=== PATIENT | female | born 1940 | race Caucasian/White ===

== ENCOUNTER → 2016-07-02 | Outpatient (CLI) | payer MEDICARE ==
[2016-07-02 09:54] LABS: BASO % 0.7 % (0.0-1.0); EOS # 0.3 K/mm3 (0.0-0.50); EOS % 3.6 % (0.0-3.0); LARGE UNSTAINED CELL # 0.1 K/mm3 (0.0-0.4); LARGE UNSTAINED CELL % 1.3 % (0.0-4.0); LYMPH # 1.5 K/mm3 (1.5-4.5); LYMPH % 18.6 % (24.0-44.0); MEAN CORPUSCULAR HEMOGLOBIN 30.4 pg (27.0-33.0); MEAN CORPUSCULAR HGB CONC 32.2 g/dl (32.0-36.5); MEAN CORPUSCULAR VOLUME 94.4 fl (80.0-96.0); MONO # 0.4 K/mm3 (0.0-0.8); MONO % 5.5 % (0.0-5.0); NEUTROPHILS # 5.3 K/mm3 (1.8-7.7); NEUTROPHILS % 70.3 % (36.0-66.0); PLATELET COUNT, AUTOMATED 366 k/mm3 (150-450); RED CELL DISTRIBUTION WIDTH 12.7 % (11.5-14.5); WHITE BLOOD COUNT 7.6 K/mm3 (4.0-10.0)
[2016-07-02 10:43] LABS: ALBUMIN 3.4 GM/DL (3.2-5.2); ALBUMIN/GLOBULIN RATIO 0.87 (1.00-1.93); ALKALINE PHOSPHATASE 117 U/L (45-117); ALT/SGPT 17 U/L (12-78); ANION GAP 7 MEQ/L (8-16); AST/SGOT 16 U/L (15-37); BILIRUBIN,TOTAL 0.5 MG/DL (0.2-1.0); BLOOD UREA NITROGEN 25 MG/DL (7-18); CALCIUM LEVEL 9.3 MG/DL (8.8-10.2); CARBON DIOXIDE LEVEL 27 MEQ/L (21-32); CHLORIDE LEVEL 107 MEQ/L (98-107); GLOMERULAR FILTRATION RATE > 60.0 (>39); GLUCOSE, FASTING 88 MG/DL (83-110); POTASSIUM SERUM 4.9 MEQ/L (3.5-5.1); SODIUM LEVEL 141 MEQ/L (136-145); TOTAL PROTEIN 7.3 GM/DL (6.4-8.2)
== END ==
LOC: M LAB 08:53
PROVIDERS: ATTEND Family Medicine
DX: E11.9 Type 2 diabetes mellitus without complications (principal)

== ENCOUNTER → 2016-08-09 | Outpatient (CLI) | payer MEDICARE ==
[2016-08-09 11:15] LABS: ANION GAP 5 MEQ/L (8-16); BLOOD UREA NITROGEN 30 MG/DL (7-18); CARBON DIOXIDE LEVEL 27 MEQ/L (21-32); CHLORIDE LEVEL 110 MEQ/L (98-107); CREATININE FOR GFR 0.89 MG/DL (0.55-1.02); GLOMERULAR FILTRATION RATE > 60.0 (>39); GLUCOSE, FASTING 112 MG/DL (83-110); POTASSIUM SERUM 4.6 MEQ/L (3.5-5.1); SODIUM LEVEL 142 MEQ/L (136-145)
--- NOTE | 2016-08-10 09:39 | ECGEPIP ---
Stationary ECG Study [facility] Test Date: 2016-08-09 Pat Name: MINAL STOCKTON Department: Room: - Gender: F [employer] Machine Operator: [facility] : 1940 Requested By: ALEAH Washburn Order Number: [id number] Reading MD: Lashonda Turner Measurements Intervals [place] Rate: 83 P: 66 MT: 173 QRS: 15 QRSD: 86 T: 48 QT: 360 QTc: 424 Interpretive Statements SINUS RHYTHM NO PRIOR Electronically Signed On 08-10-2016 9:38:57 EDT by Lashonda Turner
== END ==
LOC: M LAB 10:22
PROVIDERS: ATTEND Ophthalmology
DX: I10 Essential (primary) hypertension (principal)

== ENCOUNTER 2016-12-10 09:43 | Inpatient (IN) | payer MEDICARE ==
[~2016-12-10] VITALS: Ht 160 cm; Wt 67.4 kg
[2016-12-10] MEDS: CALCIUM/VITAMIN D 500 MG TAB PO SCH (09:00)
[2016-12-10] MEDS: OMEGA-3 1050MG CAPSULE PO SCH (09:00)
[2016-12-10] MEDS ORDERED: BESI0.6S (10:04)
[2016-12-10] MEDS ORDERED: METF10004 PO (10:04)
[2016-12-10] MEDS ORDERED: ATOR1TAB21 PO (10:04)
[2016-12-10] MEDS ORDERED: LISI-538 PO (10:04)
[2016-12-10] MEDS ORDERED: BIMA01SOL OU (10:04)
[2016-12-10] MEDS ORDERED: GLIM4TAB PO (10:04)
--- NOTE | 2016-12-10 10:49 | REP ---
Portable chest , single AP view, patient sitting: There are no comparisons. The lung brandt are clear. The cardiac size is normal. The pearl, mediastinum, and bony thorax are unremarkable. Impression: Negative portable chest. Signed by Martín Loera MD 12/10/2016 10:40 A
--- NOTE | 2016-12-10 11:01 | REP ---
REASON: Stroke like symptoms. COMPARISON: None. TECHNIQUE: 4.5 mm contiguous transaxial sections were obtained from the skull base to the cerebral convexities with thin cuts through the posterior fossa without the administration of intravenous contrast. FINDINGS: The ventricles and sulci are consistent with the patient's age. There are no extra-axial fluid collections. There is no mass effect. The deep cerebral white matter is consistent with the patient's age. The orbital and petrous structures , cerebellopontine angles, and posterior fossa are unremarkable. The sella turcica, cavernous, and paracavernous structures are essentially unremarkable. The visualized portions of the paranasal sinuses and mastoid air cells are clear. Images of the skull base show no gross abnormality. IMPRESSION: Essentially unremarkable CT examination of the brain. Signed by Genaro Josue DO 12/10/2016 11:10 A
[2016-12-10] MEDS ORDERED: DEXTROSE 50% 50 ML SYRINGE IV STA (11:33)
[2016-12-10 11:34] LABS: BASO % 0.2 % (0.0-1.0); EOS # 0.1 K/mm3 (0.0-0.50); EOS % 0.9 % (0.0-3.0); LARGE UNSTAINED CELL # 0.1 K/mm3 (0.0-0.4); LARGE UNSTAINED CELL % 1.4 % (0.0-4.0); LYMPH # 0.7 K/mm3 (1.5-4.5); MEAN CORPUSCULAR HEMOGLOBIN 31.3 pg (27.0-33.0); MEAN CORPUSCULAR HGB CONC 32.4 g/dl (32.0-36.5); MEAN CORPUSCULAR VOLUME 96.7 fl (80.0-96.0); MONO # 0.4 K/mm3 (0.0-0.8); MONO % 4.7 % (0.0-5.0); NEUTROPHILS # 6.5 K/mm3 (1.8-7.7); NEUTROPHILS % 83.9 % (36.0-66.0); PLATELET COUNT, AUTOMATED 342 k/mm3 (150-450); RED CELL DISTRIBUTION WIDTH 12.7 % (11.5-14.5); WHITE BLOOD COUNT 7.8 K/mm3 (4.0-10.0)
[2016-12-10 11:39] LABS: INR 0.94
[2016-12-10] MEDS ORDERED: NS 1,000 ML IV ONE (11:45)
[2016-12-10] MEDS ORDERED: CALCTAB75 PO (12:09)
[2016-12-10] MEDS ORDERED: VITA-121 PO (12:09)
[2016-12-10] MEDS ORDERED: FISH1000 PO (12:09)
[2016-12-10] MEDS ORDERED: ASPI1TAB PO (12:09)
[2016-12-10 12:46] LABS: ALBUMIN 3.2 GM/DL (3.2-5.2); ALBUMIN/GLOBULIN RATIO 0.7 (1.00-1.93); BILIRUBIN,DIRECT 0.7 MG/DL (0.0-0.2); BILIRUBIN,TOTAL 1.4 MG/DL (0.2-1.0); TOTAL PROTEIN 7.8 GM/DL (6.4-8.2)
[2016-12-10 12:46] LABS: ANION GAP 10 MEQ/L (8-16); BLOOD UREA NITROGEN 37 MG/DL (7-18); CALCIUM LEVEL 9.3 MG/DL (8.8-10.2); CARBON DIOXIDE LEVEL 22 MEQ/L (21-32); CHLORIDE LEVEL 102 MEQ/L (98-107); CREATININE FOR GFR 0.97 MG/DL (0.55-1.02); GLOMERULAR FILTRATION RATE 59.6 (>39); GLUCOSE, FASTING 60 MG/DL (83-110); POTASSIUM SERUM 3.9 MEQ/L (3.5-5.1); SODIUM LEVEL 134 MEQ/L (136-145)
--- NOTE | 2016-12-10 14:28 | REP ---
Abdominal right upper quadrant ultrasound: There are no comparison studies. There is a negative Mix's sign to transducer pressure. There are multiple gallbladder calculi. The gallbladder wall is mildly thickened measuring up to 4 mm. There is no intrahepatic biliary duct dilatation. The common biliary duct is mildly dilated measuring 7.6 mm. The hepatic parenchyma is homogeneous and otherwise unremarkable. The pancreas is obscured by bowel gas. There is no right renal hydronephrosis, calculus or mass. There is a 1.8 cm upper pole cyst and a 1.3 cm upper pole cyst. The right kidney is normal size measuring 9.7 cm craniocaudad length. Impression: Cholelithiasis. Mild gallbladder wall thickening and minimal common biliary duct dilatation. No positive Mxi's sign to transducer pressure. No pericholecystic fluid. There is no right hydronephrosis. There are two right renal upper pole cysts. Signed by Martín Loera MD 12/10/2016 02:19 P
[2016-12-10] MEDS: NS 1,000 ML IV SCH ×2 (15:45→23:41)
[2016-12-10] MEDS ORDERED: DEXTROSE 50% 50 ML SYRINGE IV PRN (15:45)
[2016-12-10] MEDS ORDERED: GLUCOSE 4 GM CHEW TABLET PO PRN (15:45)
[2016-12-10] MEDS ORDERED: GLUCAGON FOR INJ 1 MG VIAL (J1610) SC PRN (15:45)
[2016-12-10] MEDS ORDERED: ONDANSETRON 4MG/2ML VIAL (J2405) IV PRN (16:00)
[2016-12-10] MEDS ORDERED: ISOVUE-370 76% 100ML VIAL (Q9967) As Ordered ONE (17:34)
--- NOTE | 2016-12-10 17:55 | HPE ---
DATE OF ADMISSION: 12/10/2016 Time patient was seen was at 1500 hours. PRIMARY CARE PROVIDER: Eliecer Montoya MD CHIEF COMPLAINT: Fall onto floor. HISTORY OF PRESENT ILLNESS: 76-year-old female with past medical history of non-insulin dependent type 2 diabetes, hyperlipidemia, hypertension, calcium deficiency who presented after being found next to her bed this morning around 7:30 a.m. by patient's . According to patient, she woke up at 6:45 a.m. and felt a little bit dizzy and then she was trying to get off the bed with one leg out of the bed, then she does not remember what happened. However, she does remember that she was on the floor and talking to her and daughter. Patient denies any incontinence, denies any loss of consciousness or hitting her head. However, according to daughter she does have a bruise on the forehead and did have some blood on the head when emergency medical services (EMS) arrived. Also, patient's fingerstick was found to be in the 30s when EMS arrived at the scene. Patient was more coherent in the ambulance and she was able to speak in full sentences and answer all the questions after IV drip was started per patient's daughter. In addition, she did lose control of her bladder while in the ambulance. According to patient, she was trying to hold her bladder and was not able to make it to the bathroom and she did feel like she was going to urinate. In addition, patient stated that on Friday evening she had an episode of nausea after eating a sub and on Friday she vomited and she did not feel like eating for the entire Friday and Friday, she only had a little bit of food on Friday evening. She also had an episode of hypoglycemia in the past with sugar in the 30s. Normally she does not pass out and only requires orange juice to bring her sugar back to normal. Patient's A1c was found to be elevated, therefore metformin was started, in addition to glimepiride, and ever since she has been having more events with low blood sugar. She also admits to roughly a 25 pound weight loss over the past few months. She attributes that to reduced appetite and also she was trying to lose weight. Otherwise, she denies any chest pain, trouble breathing, any abdominal pains, any diarrhea, any constipation, any blood in the stool, any dysuria. Denies any blood in the urine. She does admit to feeling cold all the time however. ALLERGIES: No known drug allergies. PAST MEDICAL HISTORY: Includin. Non-insulin dependent type 2 diabetes. 2. Hypertension. 3. Hyperlipidemia. 4. 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 5. Osteomyelitis status post resection of a left toe. PAST SURGICAL HISTORY: Resection of left toe due to diabetes. SOCIAL HISTORY: Patient lives with her and daughter. Denies any smoking, drinking, or recreational drug use. 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 FAMILY HISTORY: Denies. REVIEW OF SYSTEMS: GENERAL: Admits to 25 pounds of intentional weight loss. Denies any recent travel or sick contact. Denies fever or chills. Denies any sweating at night. HEENT: Denies any changes with vision, smell, hearing or taste. CARDIOVASCULAR: Denies any chest pain, trouble breathing. LUNGS: Denies any trouble breathing, any cough. ABDOMEN: Denies any abdominal pains. Patient did have nausea and vomiting on Friday and still felt nauseous until Friday. Currently does not feel nauseous however. Denies any diarrhea or constipation. Denies any blood in the stool. GENITOURINARY (): Denies any dysuria, however she did have incontinence while in the emergency room, per patient she was unable to hold her bladder in the ambulance. MUSCULOSKELETAL: Denies any muscle aches, any pain in the joints. HEMATOLOGY/ONCOLOGY: Denies any bleeding currently. However, does admit to easy bruising. ENDOCRINE: Denies any heat intolerance, however patient does feel cold all the time and has been worse over the past few days. NEUROLOGICAL: Denies any weakness on any side of her body. Denies any change of sensations. Patient does admit to hitting her head, however she does not remember. PHYSICAL EXAMINATION: VITAL SIGNS: Temperature 97.9, pulse 70, respirations 14, blood pressure 137/59 , oxygen saturation at 96% on room air. GENERAL: Patient is a pleasant elderly female who was alert, awake, oriented times three. Does not appear to be in distress. Laying comfortably in bed with head elevated at 45 degrees angle. HEENT: Normocephalic, atraumatic. Extraocular motors intact. Pupils are equal , round, and reactive to light. Mucous membranes moist. Neck supple. No neck lymphadenopathy. CARDIOVASCULAR: Regular rate and rhythm. Normal S1, S2, however it was difficult to auscultate due to increase of anteroposterior (AP) diameter. LUNGS: Clear to auscultation bilaterally. No wheezing, rales, or rhonchi. ABDOMEN: Positive bowel sounds. Soft, nontender, nondistended. No peritoneal signs. No ecchymosis. EXTREMITIES: Trace pitting edema in bilateral lower extremities. SKIN: Warm and dry. NEUROLOGICAL: Cranial nerves II-XII intact. Patient's eyebrow raise was equal bilaterally. Smile was symmetrical. Tongue protruding was midline. Sutqxi-nf-vjzl shows good coordination. Dazj-gk-kdcl was intact as well. Sensations were intact. LABORATORY DATA: WBC 7.8, hemoglobin 10.8, hematocrit 33.3, with platelet count of 342 and MCV of 96.7. Sodium 134, potassium 3.9, chloride 102, bicarbonate 22, BUN 37, creatinine 0.97 , GFR 59.6, fasting glucose 60, A1c was 7, calcium 9.3, total bilirubin 1.4, direct bilirubin 0.7, AST 550, ALT 890, alkaline phosphatase 382, ammonia level was 32, creatine kinase was 77, CK-MB 2.5, troponin less than 0.02, total protein 7.8, albumin 3.2, amylase 38, lipase 180. INR was 0.94. Patient's hepatitis panel is pending, currently, glucose was 174, 168. Patient' s blood culture times two is pending. Patient had a head CT without contrast which shows essentially unremarkable CT of the brain. Patient had a chest x-ray which shows negative portable chest. Gallbladder ultrasound shows cholelithiasis, mild gallbladder wall thickening, and minimal common bile duct dilatation. No positive Mix's sign to transducer pressure. No pericholecystic fluid. ASSESSMENT AND PLAN: 76-year-old female with past medical history of non- insulin dependent type 2 diabetes, severe anemia, and hypertension, presented with: 1. Fall from the bed. Possibly from hypoglycemic event versus cardiac etiology versus transient ischemic attack (TIA) versus infectious etiology. Patient's CT of the head did not show any acute findings. There is no significant white count which is only 7.8. Patient has no fever. Patient does have low blood sugar initially, it was only in the 30s, which is likely the cause of patient's fall and altered mental status. Will repeat orthostatic vital signs for now. Patient did not have elevated cardiac markers and does not have any dysuria or any cough to indicate infectious etiology. At this point, will place the patient on fingersticks every 6 hours and patient is currently nothing by mouth. Will hold patient's diabetic medications, metformin and also glimepiride, and continue to monitor patient. 2. Hitting patient's forehead on the ground. Does not show any lacerations or any bruising currently. CT of the head has been negative. Will continue to follow patient, place patient on seizure precautions, and also aspiration precaution. 3. Transaminitis with AST of 850, ALT of 890, and alkaline phosphatase of 382. Patient also has elevated bilirubin. At this point, it is suspicious that patient may have choledocholithiasis, therefore Dr. Griffin from gastroenterology has been consulted. Will follow his recommendation. MRCP has been ordered which is pending, will followup. At this point, patient's INR appears to be normal at 0.94. Hepatitis panel has been pending for possible acute hepatitis A infection. Patient does not have elevated ammonia level. 4. Chronic anemia, borderline macrocytic. Appears to be at baseline currently. 5. History of hypertension. Will continue home medication of lisinopril. Patient's blood pressure appears to be stable. 6. Hyperlipidemia. Due to transaminitis and possible hepatitis will hold any hepatotoxic agent at the moment. 7. Deep venous thrombosis (DVT) prophylaxis with heparin 5000 units subcutaneously every 12 hours. DISPOSITION: Will continue to monitor any additional hypoglycemic event and rule out patient's reason for the altered mental status and investigate etiology of patient's transaminitis and will followup with MRCP for possible choledocholithiasis and continue to follow Dr. Griffin's recommendation. Patient has been discussed with attending doctor, Dr. Blake. My preceptor for this patient encounter was Dr. Micky Blake. The preceptor was physically present in the building during the encounter and was fully available. As needed, all aspects of the patient interview, examination, medical decision making process, and medical care plan development were reviewed and approved by the preceptor. The preceptor is aware and concurs with the plan as stated in the body of this note and will attest to such by his/her cosignature. MARIA DEL CARMEN
--- NOTE | 2016-12-10 18:30 | REPUSA ---
CT of the abdomen and pelvis with contrast Clinical statement: nausea, vomiting. Technique: Multiple axial CT images were obtained from the base of the lungs through the floor of the pelvis utilizing 5 mm axial slices after administration of oral and nonionic intravenous contrast. C oronal and sagittal reconstructions were also obtained. No comparison is available. Findings: Chest: The visualized lung bases are clear. Abdomen: The liver, spleen, and adrenal glands are unremarkable. Extensive cystic changes are seen th roughout the pancreas, likely representing pseudocysts from previous pancreatitis. There is no eviden ce of acute pancreatitis at this time. No discrete pancreatic necrosis is seen. There is mild intrahe patic and extrahepatic biliary ductal dilatation. The common bile duct measures 4 mm. Numerous gallst ones filled gallbladder. No discrete pericholecystic inflammation is noted. There are small bilateral renal cysts. The aorta is within normal limits. There is no evidence of abdominal lymphadenopathy or ascites. Pelvis: The bowel is unremarkable, with no obstructive or inflammatory changes. The urinary bladder i s within normal limits. The other pelvic structures appear grossly intact. There is no evidence of pe lvic lymphadenopathy or ascites. Bones: There are no suspicious osseous abnormalities seen. There is mild degenerative disc disease at L1/L2. Impression: 1. Cholelithiasis, without discrete evidence of acute cholecystitis. Moderate extrahepatic biliary du ctal dilatation with mild intrahepatic biliary ductal dilatation. If there is further clinical concer n, MRCP or ERCP could be performed. 2. Extensive cystic changes of the pancreas, likely representing pseudocysts from previous pancreatit is. No pancreatic necrosis is seen. There is no evidence of acute pancreatitis at this time. 3. Small bilateral renal cysts. 4. No obstructive or inflammatory bowel changes are noted 5. Mild degenerative disc disease at L1/L2.
[2016-12-10 19:30] VITALS: BP 156/68
--- NOTE | 2016-12-10 20:20 | REPUSA ---
Clinical history: bile duct dilatation. Technique: T2 weighted images of the upper abdomen were obtained. MIP images of the biliary ducts wit h 3-D reconstructions were obtained for the cholangiogram portion of the study. Comparison: CT, 12/10/2016. Findings: The biliary ducts demonstrate normal contour. No stenosis, narrowing, or intraluminal filli ng defect is seen. The gallbladder contains numerous gallstones. No gallbladder wall thickening or pe richolecystic free fluid is seen. The common bile duct measures 8 mm, and the common hepatic duct anabella sures 8 mm. The pancreatic duct is not visualized. Extensive cystic changes throughout the pancreas a re noted. Simple bilateral renal cysts are also seen. The visualized portions of the liver, spleen, k idneys, and adrenal glands are unremarkable. There is no abdominal lymphadenopathy or ascites. The os seous structures and soft tissues are unremarkable. Impression: 1. Cholelithiasis without evidence of acute cholecystitis. 2. Extrahepatic biliary ductal dilatation. No obstructing stone, mass, or stenosis is appreciated. Fo llow-up is recommended as clinically indicated. 3. Extensive cystic changes of the pancreas likely represent pseudocyst from previous pancreatitis.
[2016-12-10] MEDS: LISINOPRIL 10 MG TAB PO SCH (20:42)
[2016-12-10] MEDS: ASPIRIN 81 MG ENTERIC TAB PO SCH (20:42)
[2016-12-10] MEDS: VITAMIN D 1,000 INTERNATIONAL UNITS TABLET PO SCH (20:42)
[2016-12-10] MEDS: HEPARIN SOD (PORCINE) 5000 UNITS/ML VIAL SC SCH (20:43)
[2016-12-10 21:50] VITALS: BP_SYST 133; BP_SYST 142; BP_SYST 148; BP_DIAS 63; BP_DIAS 65; BP_DIAS 70
[2016-12-10 22:50] VITALS: BP_SYST 127; BP_SYST 130; BP_SYST 142; BP_DIAS 58; BP_DIAS 60; BP_DIAS 90
[2016-12-11] VITALS: BP 160/64
[2016-12-11 04:00] VITALS: BP 164/78
[2016-12-11 05:22] LABS: BASO % 0.7 % (0.0-1.0); EOS # 0.2 K/mm3 (0.0-0.50); EOS % 3.4 % (0.0-3.0); LARGE UNSTAINED CELL # 0.1 K/mm3 (0.0-0.4); LARGE UNSTAINED CELL % 1.4 % (0.0-4.0); LYMPH # 1.5 K/mm3 (1.5-4.5); MEAN CORPUSCULAR HEMOGLOBIN 31.4 pg (27.0-33.0); MEAN CORPUSCULAR HGB CONC 32.8 g/dl (32.0-36.5); MEAN CORPUSCULAR VOLUME 95.5 fl (80.0-96.0); MONO # 0.5 K/mm3 (0.0-0.8); MONO % 7.6 % (0.0-5.0); NEUTROPHILS # 4.1 K/mm3 (1.8-7.7); NEUTROPHILS % 64.9 % (36.0-66.0); PLATELET COUNT, AUTOMATED 323 k/mm3 (150-450); RED CELL DISTRIBUTION WIDTH 12.9 % (11.5-14.5); WHITE BLOOD COUNT 6.4 K/mm3 (4.0-10.0)
[2016-12-11 05:54] LABS: ALBUMIN 2.7 GM/DL (3.2-5.2); ALBUMIN/GLOBULIN RATIO 0.68 (1.00-1.93); ALKALINE PHOSPHATASE 299 U/L (45-117); ALT/SGPT 556 U/L (12-78); ANION GAP 8 MEQ/L (8-16); AST/SGOT 356 U/L (15-37); BILIRUBIN,TOTAL 0.5 MG/DL (0.2-1.0); BLOOD UREA NITROGEN 24 MG/DL (7-18); CALCIUM LEVEL 8.8 MG/DL (8.8-10.2); CARBON DIOXIDE LEVEL 23 MEQ/L (21-32); CHLORIDE LEVEL 110 MEQ/L (98-107); CREATININE FOR GFR 0.77 MG/DL (0.55-1.02); GLOMERULAR FILTRATION RATE > 60.0 (>39); GLUCOSE, FASTING 96 MG/DL (83-110); POTASSIUM SERUM 4.4 MEQ/L (3.5-5.1); SODIUM LEVEL 141 MEQ/L (136-145); TOTAL PROTEIN 6.7 GM/DL (6.4-8.2)
[2016-12-11 08:00] VITALS: BP 177/79
--- NOTE | 2016-12-11 08:04 | ECGEPIP ---
Stationary ECG Study [facility] Test Date: 2016-12-10 Pat Name: MINAL STOCKTON Department: Room: [place] [address] Gender: F Alcoholic Counselor: miguelangel : 1940 Requested By: KULWANT SILVA Order Number: [id number] Reading MD: Nick Kaba Measurements Intervals [place] Rate: 72 P: 19 SD: 154 QRS: 5 QRSD: 83 T: 29 QT: 378 QTc: 416 Interpretive Statements SINUS RHYTHM Electronically Signed On 12-11-2016 8:04:37 EDT by Nick Kaba
[2016-12-11] MEDS: ASPIRIN 81 MG ENTERIC TAB PO SCH (09:14)
[2016-12-11] MEDS: CALCIUM/VITAMIN D 500 MG TAB PO SCH (09:14)
[2016-12-11] MEDS: VITAMIN D 1,000 INTERNATIONAL UNITS TABLET PO SCH (09:15)
[2016-12-11] MEDS: HEPARIN SOD (PORCINE) 5000 UNITS/ML VIAL SC SCH ×2 (09:15→21:05)
[2016-12-11] MEDS: OMEGA-3 1050MG CAPSULE PO SCH (09:15)
[2016-12-11] MEDS: LISINOPRIL 10 MG TAB PO SCH (09:15)
[2016-12-11] MEDS: amLODIPine 5 MG TAB PO SCH ×2 (12:49→21:04)
[2016-12-11] MEDS: D5W/0.45% SODIUM CHLORIDE 1,000 ML IV SCH (12:50)
[2016-12-11 13:05] VITALS: BP 138/64
[2016-12-11 20:33] VITALS: BP 169/71
[2016-12-11] MEDS ORDERED: LATANOPROST 0.005% OPHTH SOLN 2.5 ML OU SCH (21:00)
[2016-12-12] MEDS: D5W/0.45% SODIUM CHLORIDE 1,000 ML IV SCH (01:35)
[2016-12-12 05:05] VITALS: BP 140/62
[2016-12-12 05:39] LABS: BASO % 0.7 % (0.0-1.0); EOS # 0.3 K/mm3 (0.0-0.50); EOS % 3.8 % (0.0-3.0); LARGE UNSTAINED CELL # 0.1 K/mm3 (0.0-0.4); LARGE UNSTAINED CELL % 1.8 % (0.0-4.0); LYMPH # 1.8 K/mm3 (1.5-4.5); LYMPH % 24.9 % (24.0-44.0); MEAN CORPUSCULAR HEMOGLOBIN 30.7 pg (27.0-33.0); MEAN CORPUSCULAR HGB CONC 32.1 g/dl (32.0-36.5); MEAN CORPUSCULAR VOLUME 95.7 fl (80.0-96.0); MONO # 0.5 K/mm3 (0.0-0.8); MONO % 7.3 % (0.0-5.0); NEUTROPHILS # 4.2 K/mm3 (1.8-7.7); NEUTROPHILS % 61.6 % (36.0-66.0); PLATELET COUNT, AUTOMATED 298 k/mm3 (150-450); RED CELL DISTRIBUTION WIDTH 12.8 % (11.5-14.5); WHITE BLOOD COUNT 6.8 K/mm3 (4.0-10.0)
[2016-12-12 05:49] LABS: ALBUMIN 2.4 GM/DL (3.2-5.2); ALBUMIN/GLOBULIN RATIO 0.65 (1.00-1.93); ALKALINE PHOSPHATASE 239 U/L (45-117); ALT/SGPT 346 U/L (12-78); ANION GAP 8 MEQ/L (8-16); AST/SGOT 129 U/L (15-37); BILIRUBIN,TOTAL 0.5 MG/DL (0.2-1.0); BLOOD UREA NITROGEN 19 MG/DL (7-18); CALCIUM LEVEL 8.9 MG/DL (8.8-10.2); CARBON DIOXIDE LEVEL 21 MEQ/L (21-32); CHLORIDE LEVEL 105 MEQ/L (98-107); GLOMERULAR FILTRATION RATE > 60.0 (>39); GLUCOSE, FASTING 191 MG/DL (83-110); POTASSIUM SERUM 3.9 MEQ/L (3.5-5.1); SODIUM LEVEL 134 MEQ/L (136-145); TOTAL PROTEIN 6.1 GM/DL (6.4-8.2)
[2016-12-12 07:30] VITALS: BP 115/59
[2016-12-12] MEDS ORDERED: HumaLOG INSULIN (NovoLOG) PER UNIT SC SCH ×2 (07:30→21:00)
[2016-12-12 08:00] LABS: RETIC HEMOGLOBIN CONTENT CHr 32.8 PG (24-36); RETICULOCYTE ABSOLUTE ADVIA212 34 x10(9)/L (17-77)
[2016-12-12 08:03] LABS: FERRITIN 233 NG/ML (8-252); PERCENT SATURATION 22.6 % (13.2-37.4); TOTAL IRON BINDING CAPACITY 314 UG/DL (250-450)
--- NOTE | 2016-12-12 08:06 | IPN ---
DATE: 12/11/2016 Patient is seen and examined at the bedside. Chart has been reviewed. This morning she complains of epigastric discomfort with radiation to the back, improved from yesterday. No other issues per nursing. No jaundice or icterus. No nausea or vomiting. No constipation. No diarrhea. VITALS: Temperature 98.6, pulse 76, respiratory rate 98, blood pressure 177/79, 94% on room air. GENERAL: Awake, alert and oriented times three, answering questions appropriately. Anicteric sclera. No jaundice. LUNGS: Clear to auscultation. No wheezing, rales or rhonchi. HEART: S1, S2 sinus rhythm. ABDOMEN: Soft, tender in the epigastric region. No rebound or guarding. Positive bowel sounds times four quadrants. EXTREMITIES: No cyanosis, clubbing. LABORATORY DATA: CBC, comprehensive metabolic panel, serology for hepatitis, microbiology have bee reviewed. IMAGING STUDIES: MRCP shows cholelithiasis without acute cholecystitis, biliary ductal dilatation. No obstructing stone. Extensive cystic changes. Pseudocyst from previous pancreatitis. ASSESSMENT/PLAN: This is a 76-year-old female with a history of pancreatitis, legally blind, diabetes, osteomyelitis status post resection of the left toe, hypertension, hyperlipidemia, [id number] diabetes type 2 diabetes, who presents with complaints of abdominal discomfort, found to have a dilated extrahepatic duct with transaminitis. CURRENT ISSUES: 1. Cholelithiasis with extra biliary ductal dilatation, rule out choledocholithiasis. MRCP shows no gallstones. Refer to Dr. Griffin regarding ERCP. Currently nothing by mouth. 2. Falling from the bed, possible hypoglycemia versus cardiac etiology. Patient currently has glucose in the 30s. Repeat glucose was in the 60s. Will change to D5 half normal saline while nothing by mouth status. Every 6 hours fingersticks. Hypoglycemic protocol. 3. Legally blind. 4. Hypertension, uncontrolled. Add Norvasc twice a day with holding parameter for systolic pressure less than 140. 5. Hyperlipidemia, chronic. MTDD
[2016-12-12 08:07] LABS: REASON FOR REVIEW COMPREHENSIVE REVIEW
[2016-12-12 08:57] VITALS: BP 115/59
[2016-12-12] MEDS: CALCIUM/VITAMIN D 500 MG TAB PO SCH (08:57)
[2016-12-12] MEDS: VITAMIN D 1,000 INTERNATIONAL UNITS TABLET PO SCH (08:57)
[2016-12-12] MEDS: amLODIPine 5 MG TAB PO SCH (08:57)
[2016-12-12] MEDS: OMEGA-3 1050MG CAPSULE PO SCH (08:57)
[2016-12-12] MEDS: ASPIRIN 81 MG ENTERIC TAB PO SCH (08:57)
[2016-12-12] MEDS: LISINOPRIL 10 MG TAB PO SCH (08:58)
[2016-12-12] MEDS: HEPARIN SOD (PORCINE) 5000 UNITS/ML VIAL SC SCH (08:58)
--- NOTE | 2016-12-12 19:06 | ECGEPIP ---
Stationary ECG Study [facility] - ED Test Date: 2016-12-10 Pat Name: MINAL STOCKTON Department: Room: - Gender: F Cardiovascular Operating Room Nurse: VIVIAN : 1940 Requested By: Ariel Beauchamp Order Number: [id number] Reading MD: Skyler Torres Measurements Intervals [place] Rate: 69 P: 61 MA: 186 QRS: -3 QRSD: 90 T: 44 QT: 413 QTc: 445 Interpretive Statements SINUS RHYTHM POSSIBLE LAE SIMILAR TO 08/09/16 Electronically Signed On 12-12-2016 19:05:55 EDT by Skyler Torres
--- NOTE | 2016-12-13 14:31 | DSES ---
DATE OF ADMISSION: 12/10/2016 DATE OF DISCHARGE: 12/12/2016 PRIMARY CARE PROVIDER: Dr. Eliecer Montoya PATHOLOGY LABORATORY TECHNOLOGIST: Consulted during this admission, Dr. Jb Griffin. PRIMARY DISCHARGE DIAGNOSES: 1. Choledocholithiasis. 2. MRCP with extrahepatic biliary ductal diltation. 3. Chronic pancreatic pseudocyst. 4. Cholelithiasis. 5. Hemodilutional anemia. 6. Hyponatremia. 7. Protein calorie malnutrition. 8. Legally blind. 9. Hypertension. 10. Hyperlipidemia. 11. Episodes of hypoglycemia. DISCHARGE MEDICATIONS: - aspirin 81 mg daily - atorvastatin 10 mg daily - Lumigan one drop both eyes at night - calcium with vitamin D one tablet daily - vitamin D3 1000 units daily - fish oil one tablet daily - glimepiride 4 mg daily - Lisinopril 20 mg daily - metformin 1 gram by mouth twice a day HOSPITAL COURSE: This is a 76-year-old female with a history of diabetes, hypertension, hyperlipidemia, calcium deficiency, who presents to the emergency room with a fall at home and was found to be hypoglycemic with glucose in the 30s. The patient has not been feeling well and was evaluated in the emergency room and was found to have transaminitis with AST 850, ALT 890, total bilirubin of 1.4, suspicious for choledocholithiasis. CT of the abdomen and pelvis showed cholelithiasis. Ultrasound of the gallbladder shows no acute cholecystitis. MRCP showed extrahepatic ductal dilatation, cholelithiasis without evidence of acute cholecystitis, no obstructing stone, mass or stenosis. Chronic pancreatic pseudocyst. The patient was kept nothing by mouth and on intravenous fluids. For hypoglycemia, the patient was put on D5 1/2 normal saline and fingersticks every 6 hours while nothing by mouth. She had episodes of high blood pressure due to discomfort and was given Norvasc 5 mg twice a day and Lisinopril was decreased to 10 mg daily due to slight dehydration. Dr. Griffin evaluated the patient and felt that no endoscopic retrograde cholangiopancreatography (ERCP) was indicated as liver function tests were improving and the patient clinically was asymptomatic and tolerating a full liquid diet. Further evaluation included hepatitis profile, which was negative. The patient passed a home safety evaluation and was tolerating her diet with liver function tests improving and was discharged home. Due to hemodilutional anemia, she was noted to have a drop in hemoglobin from 10.8 to 8.8. Iron studies were normal. Hemoccult stool was not available. LABORATORY DATA ON DISCHARGE: White count 6.8, hemoglobin 8.8, hematocrit 27, platelet count 298. Sodium 134, potassium 3.9, chloride 105, bicarbonate 21, BUN 19, creatinine 0.7, glucose 191, A1/c of 7, calcium 8.9, iron 71, TIBC 314, ferritin 233, total bilirubin 0.5, AST 129, ALT 346, alkaline phosphatase 239, ammonia of 32, albumin 2.4, TSH 1.06, two sets of blood cultures on 12/10/2016 negative. MRCP on 12/10/2016 cholelithiasis without evidence of acute cholecystitis, extrahepatic biliary ductal dilatation, no obstructing stone, moderate stenosis. Extensive cysti changes in the pancreas, may represent pseudocyst from previous pancreatitis. CT of the abdomen and pelvis showed cholelithiasis without evidence of acute cholecystitis, moderate extrahepatic biliary ductal dilatation and mild intrahepatic biliary ductal dilatation. Extensive cystic changes in the pancreas, most likely from pseudocyst. No evidence of pancreatitis. Small bilateral renal cysts. No obstructive or inflammatory bowel changes. Mild degenerative disc disease at L1-L2. Gallbladder ultrasound showed cholelithiasis, mild gallbladder wall thickening, minimal common bile duct dilation, no positive Mix's. No pericolic cystic fluid. No right hydronephrosis, two right renal upper pole cysts. Chest x-ray on 12/10/2016 shows negative portal chest x-ray. Head CT on 12/10/[address] of the brain. Time spent on discharge: 45 minutes.
--- NOTE | 2016-12-16 09:09 | CR ---
DATE OF CONSULTATION: 12/12/2016 76-year-old white female who was admitted to [facility] ([facility]) for evaluation of being found on the floor at home. Patient has multiple medical problems including diabetes mellitus type 2, hyperlipidemia, hypertension. The patient was found on the floor at home with a blood sugar in the 30s. She had no complaints of abdominal pain. No fevers, night sweats, or shaking chills. No complaints of chest and shortness of breath. ALLERGIES: No known declared allergies. PAST MEDICAL HISTORY: Includes: 1. Diabetes mellitus type 2. 2. Hypertension. 3. Hyperlipidemia. 4. 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 5. Patient has osteomyelitis status post resection of the left toe. PAST SURGICAL HISTORY: Surgical resection of her left toe due to diabetes. SOCIAL HISTORY: Cigarettes, alcohol, drugs none. FAMILY HISTORY: Noncontributory to the above problem. REVIEW OF SYSTEMS: Also noncontributory to the above problems. EXAM: She is a well-developed, well-nourished white female in no obvious acute distress. Appears stated age. Chest was clear to auscultation. Cardiovascular exam showed a regular rhythm. No murmurs or gallops. Normal physiological split S1 and S2. Abdomen is soft, nontender. No masses, guarding, rebound, or hepatosplenomegaly. Bowel sounds positive. Extremities: No cyanosis, clubbing, edema. Homans negative. LABORATORY STUDIES: On admission, showed a white count of 7800, hemoglobin of 10.8, hematocrit 33.3. The patient's liver functions on admission showed a total bilirubin of 1.4, AST was 850, ALT was 890, and alkaline phosphatase was 382. Serology studies for viral studies were all negative. Coagulation was normal. Imaging studies on the patient included an abdominal ultrasound on 12/10/2016, which showed gallstones, mild gallbladder wall thickening, and minimal common bile duct dilatation. No evidence of positive Mix's sign. The liver was homogeneous. There was no evidence of intrahepatic biliary dilatation. The patient also had an abdominal CT scan on 12/10/2016, which showed again cholelithiasis without evidence of acute cholecystitis, moderate extrahepatic biliary ductal dilatation with mild intrahepatic biliary ductal dilatation. MRCP/ERCP was recommended. Patient had some cystic changes of the pancreas, some small bilateral renal cysts, and degenerative disc disease. Abdominal MRCP MRI films show cholelithiasis without evidence of acute cholecystitis. There was some mild extrahepatic biliary ductal dilatation. No obstructing stone or mass seen. No evidence of choledocholithiasis was noted. Patient remained totally asymptomatic throughout the hospital course. ANALYSIS: Abnormal liver function tests of unknown etiology. The patient's liver functions over the hospital course have gradually improved. Her bilirubin has come down to 0.5 prior to discharge. AST was 129, ALT 326, and alkaline phosphatase came down to 239 . Patient's lipase was completely normal. PLAN: Will be to follow the patient as an outpatient. She denies any abdominal pain. No fevers, night sweats, or shaking chills, and bowel movement. Consideration for possible endoscopic retrograde cholangiopancreatography (ERCP) may be made if the patient's liver functions increase again as an outpatient with possible ERCP and papillotomy but as long as the liver . but as long as the liver functions go up, however, she is asymptomatic, then . The plan will be to follow her as an outpatient, check her labs, and possibly treated treat her conservatively. ERCP only if needed.
== END 2016-12-12 10:28 | disposition home or self-care (01) | DRG 445 ==
LOC: EDBD 09:43 → M ED 09:43 → M ED INP 15:39 → M PCU 23:05
PROVIDERS: ADMIT Internal Medicine; ATTEND General Practice
DX: K80.70 Calculus of gallbladder and bile duct without cholecystitis without obstruction (principal); E46 Unspecified protein-calorie malnutrition; K86.3 Pseudocyst of pancreas; E87.1 Hypo-osmolality and hyponatremia; E78.5 Hyperlipidemia, unspecified; E11.649 Type 2 diabetes mellitus with hypoglycemia without coma; I10 Essential (primary) hypertension; E83.51 Hypocalcemia; H54.8 Legal blindness, as defined in USA; R74.0 Nonspecific elevation of levels of transaminase and lactic acid dehydrogenase [LDH]; D53.9 Nutritional anemia, unspecified; Z79.84 Long term (current) use of oral hypoglycemic drugs; Z89.422 Acquired absence of other left toe(s); Z79.899 Other long term (current) drug therapy; Z79.82 Long term (current) use of aspirin

== ENCOUNTER → 2016-12-13 | Outpatient (CLI) | payer MEDICARE ==
[~2016-12-13] MED LIST: ASPI1TAB PO; ATOR1TAB21 PO; BESI0.6S; BIMA01SOL OU; CALCTAB75 PO; FISH1000 PO; GLIM4TAB PO; LISI-538 PO; METF10004 PO; VITA-121 PO
[2016-12-13 12:13] LABS: ALBUMIN 2.8 GM/DL (3.2-5.2); ALBUMIN/GLOBULIN RATIO 0.8 (1.00-1.93); BILIRUBIN,TOTAL 0.6 MG/DL (0.2-1.0); CALCIUM LEVEL 8.8 MG/DL (8.8-10.2); CREATININE FOR GFR 1.01 MG/DL (0.55-1.02); GLOMERULAR FILTRATION RATE 56.9 (>39); POTASSIUM SERUM 5.1 MEQ/L (3.5-5.1); TOTAL PROTEIN 6.3 GM/DL (6.4-8.2)
== END ==
LOC: M LAB 11:04
PROVIDERS: ATTEND General Practice
DX: K80.50 Calculus of bile duct without cholangitis or cholecystitis without obstruction (principal)

== ENCOUNTER → 2017-01-01 | Outpatient (CLI) | payer MEDICARE ==
[2017-01-01 15:41] LABS: ALBUMIN 3.2 GM/DL (3.2-5.2); ALBUMIN/GLOBULIN RATIO 0.86 (1.00-1.93); BILIRUBIN,TOTAL 0.4 MG/DL (0.2-1.0); CALCIUM LEVEL 9.5 MG/DL (8.8-10.2); CREATININE FOR GFR 1.06 MG/DL (0.55-1.02); GLOMERULAR FILTRATION RATE 53.8 (>39); TOTAL PROTEIN 6.9 GM/DL (6.4-8.2)
[2017-01-01 15:43] LABS: POTASSIUM SERUM 5.6 MEQ/L (3.5-5.1)
== END ==
LOC: M LAB 14:19
PROVIDERS: ATTEND Internal Medicine Gastroenterology
DX: R94.5 Abnormal results of liver function studies (principal)

== ENCOUNTER → 2017-07-07 | Outpatient (CLI) | payer OTHER ==
[2017-07-07 12:21] LABS: ALBUMIN 3.3 GM/DL (3.2-5.2); ALBUMIN/GLOBULIN RATIO 0.89 (1.00-1.93); ALKALINE PHOSPHATASE 92 U/L (45-117); ALT/SGPT 18 U/L (12-78); ANION GAP 5 MEQ/L (8-16); AST/SGOT 16 U/L (7-37); BILIRUBIN,TOTAL 0.4 MG/DL (0.2-1.0); BLOOD UREA NITROGEN 35 MG/DL (7-18); CALCIUM LEVEL 9.4 MG/DL (8.8-10.2); CARBON DIOXIDE LEVEL 27 MEQ/L (21-32); CHLORIDE LEVEL 109 MEQ/L (98-107); GLOMERULAR FILTRATION RATE > 60.0 (>39); GLUCOSE, FASTING 115 MG/DL (70-100); SODIUM LEVEL 141 MEQ/L (136-145)
[2017-07-07 12:23] LABS: POTASSIUM SERUM 5.2 MEQ/L (3.5-5.1)
== END ==
LOC: M LAB 10:27
DX: R94.5 Abnormal results of liver function studies (principal); D64.9 Anemia, unspecified
CPT/HCPCS: 80053

== ENCOUNTER → 2017-07-07 | Outpatient (CLI) | payer OTHER ==
[2017-07-07 12:18] LABS: BASO # 0.1 10^3/uL (0.0-0.2); EOS # 0.3 10^3/uL (0.0-0.50); EOS % 3.9 % (0.0-3.0); HEMATOCRIT 32.3 % (36.0-47.0); HEMOGLOBIN 10.1 g/dl (12.0-16.0); IMMATURE GRANULOCYTE % 0.1 % (0-3.0); LYMPH # 2.1 10^3/uL (1.5-4.5); MEAN CORPUSCULAR HEMOGLOBIN 29.7 pg (27.0-33.0); MEAN CORPUSCULAR HGB CONC 31.3 g/dl (32.0-36.5); MONO # 0.6 10^3/uL (0.0-0.8); MONO % 7.5 % (0.0-5.0); NEUTROPHILS # 4.4 10^3/uL (1.8-7.7); NEUTROPHILS % 59.5 % (36.0-66.0); PLATELET COUNT, AUTOMATED 333 10^3/uL (150-450); RED CELL DISTRIBUTION WIDTH 13.7 % (11.5-14.5); WHITE BLOOD COUNT 7.4 10^3/uL (4.0-10.0)
[2017-07-07 12:21] LABS: ANION GAP 8 MEQ/L (8-16); BLOOD UREA NITROGEN 36 MG/DL (7-18); CALCIUM LEVEL 9.2 MG/DL (8.8-10.2); CARBON DIOXIDE LEVEL 25 MEQ/L (21-32); CHLORIDE LEVEL 109 MEQ/L (98-107); CREATININE FOR GFR 0.84 MG/DL (0.55-1.30); GLOMERULAR FILTRATION RATE > 60.0 (>39); GLUCOSE, FASTING 115 MG/DL (70-100); SODIUM LEVEL 142 MEQ/L (136-145)
[2017-07-07 12:23] LABS: POTASSIUM SERUM 5.2 MEQ/L (3.5-5.1)
== END ==
LOC: M LAB 10:23
DX: D64.9 Anemia, unspecified (principal)

== ENCOUNTER → 2018-02-10 | Outpatient (CLI) | payer OTHER ==
[2018-02-10 09:34] LABS: BASO # 0.1 10^3/uL (0.0-0.2); BASO % 0.8 % (0.0-1.0); EOS # 0.3 10^3/uL (0.0-0.50); EOS % 3.6 % (0.0-3.0); HEMATOCRIT 32.8 % (36.0-47.0); HEMOGLOBIN 10.9 g/dl (12.0-15.5); IMMATURE GRANULOCYTE % 0.4 % (0-3.0); LYMPH # 2.2 10^3/uL (1.5-4.5); LYMPH % 26.6 % (24.0-44.0); MEAN CORPUSCULAR HEMOGLOBIN 31.6 pg (27.0-33.0); MEAN CORPUSCULAR HGB CONC 33.2 g/dl (32.0-36.5); MEAN CORPUSCULAR VOLUME 95.1 fl (80.0-96.0); MONO # 0.7 10^3/uL (0.0-0.8); NEUTROPHILS % 60.6 % (36.0-66.0); PLATELET COUNT, AUTOMATED 330 10^3/uL (150-450); RED BLOOD COUNT 3.45 10^6/uL (4.00-5.40); RED CELL DISTRIBUTION WIDTH 12.5 % (11.5-14.5); WHITE BLOOD COUNT 8.3 10^3/uL (4.0-10.0)
[2018-02-10 09:53] LABS: ALBUMIN 3.3 GM/DL (3.2-5.2); ALBUMIN/GLOBULIN RATIO 0.89 (1.00-1.93); ALKALINE PHOSPHATASE 103 U/L (45-117); ALT/SGPT 18 U/L (12-78); ANION GAP 7 MEQ/L (8-16); AST/SGOT 20 U/L (7-37); BILIRUBIN,TOTAL 0.6 MG/DL (0.2-1.0); BLOOD UREA NITROGEN 31 MG/DL (7-18); CALCIUM LEVEL 9.4 MG/DL (8.8-10.2); CARBON DIOXIDE LEVEL 28 MEQ/L (21-32); CHLORIDE LEVEL 107 MEQ/L (98-107); CHOLESTEROL LEVEL 132 MG/DL (<200); CHOLESTEROL RISK RATIO 2.163 (<5); CREATININE FOR GFR 0.81 MG/DL (0.55-1.30); GLOMERULAR FILTRATION RATE > 60.0 (>39); GLUCOSE, FASTING 101 MG/DL (70-100); HDL CHOLESTEROL 61 MG/DL (>40); LDL CHOLESTEROL 56 MG/DL (<100); NON-HDL-C 71 MG/DL; POTASSIUM SERUM 4.4 MEQ/L (3.5-5.1); SODIUM LEVEL 142 MEQ/L (136-145); TRIGLYCERIDES LEVEL 75 MG/DL (<150)
[2018-02-10 10:08] LABS: ESTIMATED AVERAGE GLUCOSE 180 MG/DL (60-110); HEMOGLOBIN A1c 7.9 %
== END ==
LOC: M LAB 08:48
DX: E11.9 Type 2 diabetes mellitus without complications (principal)
CPT/HCPCS: 80053

== ENCOUNTER → 2018-02-11 | Outpatient (REF) | payer OTHER ==
[2018-02-11 16:33] LABS: CREATININE, URINE 76.3 MG/DL; MAU/CREAT RATIO 1184.8 MCG/MG (0.0-30.0)
== END ==
LOC: M LAB REF 14:54
DX: E11.9 Type 2 diabetes mellitus without complications (principal)
CPT/HCPCS: 82043

== ENCOUNTER → 2018-10-15 | Outpatient (CLI) | payer MEDICARE ==
[~2018-10-15] MED LIST changes: -ASPI1TAB PO; +ASPI81TA26 PO
[2018-10-15 09:32] LABS: BASO # 0.1 10^3/uL (0.0-0.2); BASO % 1.1 % (0.0-1.0); EOS # 0.2 10^3/uL (0.0-0.50); EOS % 2.9 % (0.0-3.0); HEMATOCRIT 34.6 % (36.0-47.0); HEMOGLOBIN 11.3 g/dl (12.0-15.5); LYMPH # 1.7 10^3/uL (1.5-4.5); LYMPH % 23.9 % (24.0-44.0); MEAN CORPUSCULAR HEMOGLOBIN 31.4 pg (27.0-33.0); MEAN CORPUSCULAR HGB CONC 32.7 g/dl (32.0-36.5); MEAN CORPUSCULAR VOLUME 96.1 fl (80.0-96.0); MONO # 0.6 10^3/uL (0.0-0.8); MONO % 8.7 % (0.0-5.0); NEUTROPHILS # 4.6 10^3/uL (1.8-7.7); NEUTROPHILS % 63.3 % (36.0-66.0); PLATELET COUNT, AUTOMATED 307 10^3/uL (150-450); WHITE BLOOD COUNT 7.3 10^3/uL (4.0-10.0)
[2018-10-15 10:01] LABS: ALBUMIN 3.5 GM/DL (3.2-5.2); BILIRUBIN,TOTAL 0.7 MG/DL (0.2-1.0); CALCIUM LEVEL 9.9 MG/DL (8.8-10.2); CREATININE FOR GFR 1.02 MG/DL (0.55-1.30); GLOMERULAR FILTRATION RATE 55.9 (>39); POTASSIUM SERUM 4.3 MEQ/L (3.5-5.1); TOTAL PROTEIN 6.9 GM/DL (6.4-8.2)
[2018-10-15 10:11] LABS: HEMOGLOBIN A1c 9.1 %
== END ==
LOC: M LAB 08:56
PROVIDERS: ATTEND Family Medicine
DX: E11.9 Type 2 diabetes mellitus without complications (principal)

== ENCOUNTER 2019-02-25 20:32 | Emergency (ER) | payer MEDICARE ==
[~2019-02-25] VITALS: Ht 162.6 cm; Wt 66.4 kg
[~2019-02-25 20:32] MED LIST changes: -GLIM4TAB PO; +GLIM4TAB3 PO
[2019-02-25] MEDS ORDERED: SITA50TAB PO (20:46)
--- NOTE | 2019-02-25 22:13 | REPVR ---
PROCEDURE INFORMATION: Exam: CT Head Without Contrast Exam date and time: 02/25/2019 9:44 PM Clinical history: 78 years old, female; Injury or trauma; Fall; Initial encounter; Blunt trauma (contusions or hematomas) TECHNIQUE: Imaging protocol: Computed tomography of the head without contrast. Radiation optimization: All CT scans at this facility use at least one of these dose optimization techniques: automated exposure control; mA and/or kV adjustment per patient size (includes targeted exams where dose is matched to clinical indication); or iterative reconstruction. COMPARISON: CT Head without contrast 12/10/2016 10:24 AM FINDINGS: Brain: Diffuse cerebral age related volume loss and patchy low attenuation in the white matter compatible with chronic small vessel ischemic disease. No midline shift, mass, fluid collection, or evidence of hemorrhage. Ventricles: Ventricular enlargement proportional to volume loss. Bones/joints: Unremarkable. No acute fracture. Sinuses: Visualized sinuses are unremarkable. No fluid levels. Mastoid air cells: Visualized mastoid air cells are well aerated. Soft tissues: Unremarkable. IMPRESSION: Age related changes, no acute intracranial abnormality. Electronically signed by: Nick Pearson On 02/25/2019 22:13:02 PM
--- NOTE | 2019-02-25 22:14 | REPVR ---
PROCEDURE INFORMATION: Exam: CT Cervical Spine Without Contrast Exam date and time: 02/25/2019 9:44 PM Clinical history: 78 years old, female; Injury or trauma; Fall; Initial encounter; Blunt trauma TECHNIQUE: Imaging protocol: Computed tomography images of the cervical spine without contrast. Radiation optimization: All CT scans at this facility use at least one of these dose optimization techniques: automated exposure control; mA and/or kV adjustment per patient size (includes targeted exams where dose is matched to clinical indication); or iterative reconstruction. COMPARISON: No relevant prior studies available. FINDINGS: Vertebrae: Normal spinal curvature, vertebral body heights, and alignment. No spinal fracture or acute subluxation. Discs/Spinal canal/Neural foramina: Diffuse degenerative disc space loss with degenerative disc osteophyte complexes, facet arthropathy, and ligamentum flavum thickening causes up to moderate spinal and foraminal stenosis greatest at C5-C6. Soft tissues: Unremarkable. Lungs: Lung apices are normal. Vasculature: There is moderate atherosclerotic calcification of the carotid arteries. IMPRESSION: No acute vertebral fracture/subluxation. Electronically signed by: Nick Pearson On 02/25/2019 22:14:20 PM
[2019-02-25] MEDS ORDERED: ADACEL/BOOSTRIX VACCINE (DIPHTH/PERTUSS/ACELL/TETANUS)0.5ML SYR (90715) IM ONE (22:15)
[2019-02-25 22:51] VITALS: BP 148/76
== END 2019-02-25 23:13 | disposition home or self-care (01) ==
LOC: M ED 20:32
DX: S09.90XA Unspecified injury of head, initial encounter (principal); W18.39XA Other fall on same level, initial encounter; Y92.481 Parking lot as the place of occurrence of the external cause; I10 Essential (primary) hypertension; E78.5 Hyperlipidemia, unspecified; E11.9 Type 2 diabetes mellitus without complications; H54.8 Legal blindness, as defined in USA

== ENCOUNTER → 2019-04-26 | Outpatient (CLI) | payer MEDICARE ==
[~2019-04-26] MED LIST changes: +SITA50TAB PO
[2019-04-26 08:01] LABS: HEMATOCRIT 33.5 % (36.0-47.0); HEMOGLOBIN 10.7 g/dl (12.0-15.5); MEAN CORPUSCULAR HEMOGLOBIN 30.7 pg (27.0-33.0); MEAN CORPUSCULAR HGB CONC 31.9 g/dl (32.0-36.5); PLATELET COUNT, AUTOMATED 298 10^3/uL (150-450); RED BLOOD COUNT 3.49 10^6/uL (4.00-5.40); WHITE BLOOD COUNT 8.6 10^3/uL (4.0-10.0)
[2019-04-26 08:25] LABS: ALBUMIN 3.3 GM/DL (3.2-5.2); BILIRUBIN,TOTAL 0.5 MG/DL (0.2-1.0); CALCIUM LEVEL 9.2 MG/DL (8.8-10.2); CREATININE FOR GFR 1.13 MG/DL (0.55-1.30); GLOMERULAR FILTRATION RATE 49.7 (>39); POTASSIUM SERUM 4.3 MEQ/L (3.5-5.1)
[2019-04-26 10:50] LABS: HEMOGLOBIN A1c 8.9 %
== END ==
LOC: M LAB 07:24
PROVIDERS: ATTEND Family Medicine
DX: E11.9 Type 2 diabetes mellitus without complications (principal)

== ENCOUNTER → 2019-11-18 | Outpatient (CLI) | payer MEDICARE ==
[~2019-11-18] MED LIST changes: -GLIM4TAB3 PO; +GLIM4TAB5 PO
--- NOTE | 2019-11-18 10:44 | REPMRS ---
Patient History The patient states she has not had a clinical breast exam in over a year. Family history of colorectal cancer at age 50 or over in mother, breast cancer at age 50 or over in maternal cousin. Digital Woman Screen Mammo: November 18, 2019 - Exam #: [id number] Bilateral CC and MLO view(s) were taken. Technologist: Donna Mauricio, Technologist Prior study comparison: August 16, 2015, digital woman screen mammo performed at [facility]. March 01, 2013, digital woman screen mammo performed at [facility]. January 01, 2012, digital woman screen mammo performed at [facility]. FINDINGS: There are scattered fibroglandular densities. The Volpara volumetric breast density category is:B. There has been no change in the appearance of the mammogram from the prior studies. There is a mild amount of scattered fibroglandular density which is fairly symmetric. There is no interval development of dominant mass, architectural distortion, or grouped microcalcification suggestive of malignancy. 3-D tomosynthesis shows no additional findings. Assessment: BI-RADS/ACR category 1 mammogram. Negative Mammogram. Recommendation Routine screening mammogram of both breasts in 1 year (for women over age 40). This patient's Lifetime Breast Cancer Risk is estimated at 3.0 %. This mammogram was interpreted with the aid of an FDA-approved computer-aided dectection system. Electronically Signed By: Samuel Campo MD 11/18/19 [id number]
== END ==
LOC: M WHC 08:15
PROVIDERS: ATTEND Family Medicine
DX: Z12.31 Encounter for screening mammogram for malignant neoplasm of breast (principal); Z80.0 Family history of malignant neoplasm of digestive organs; Z80.3 Family history of malignant neoplasm of breast

== ENCOUNTER → 2020-02-07 | Outpatient (CLI) | payer MEDICARE ==
[2020-02-07 07:44] LABS: HEMATOCRIT 33.9 % (36.0-47.0); HEMOGLOBIN 11.1 g/dl (12.0-15.5); MEAN CORPUSCULAR HEMOGLOBIN 31.4 pg (27.0-33.0); MEAN CORPUSCULAR HGB CONC 32.7 g/dl (32.0-36.5); MEAN CORPUSCULAR VOLUME 95.8 fl (80.0-96.0); PLATELET COUNT, AUTOMATED 329 10^3/uL (150-450); RED BLOOD COUNT 3.54 10^6/uL (4.00-5.40); WHITE BLOOD COUNT 8.1 10^3/uL (4.0-10.0)
[2020-02-07 08:17] LABS: CALCIUM LEVEL 9.6 MG/DL (8.8-10.2); CREATININE FOR GFR 1.27 MG/DL (0.55-1.30); GLOMERULAR FILTRATION RATE 43.3 (>39); POTASSIUM SERUM 4.3 MEQ/L (3.5-5.1)
[2020-02-07 08:18] LABS: ALBUMIN 3.4 GM/DL (3.2-5.2); BILIRUBIN,TOTAL 0.5 MG/DL (0.2-1.0); CHOLESTEROL RISK RATIO 2.836 (<5); TOTAL PROTEIN 7.2 GM/DL (6.4-8.2)
[2020-02-07 09:26] LABS: HEMOGLOBIN A1c 8.4 %
[2020-02-07 14:17] LABS: CREATININE, URINE 36.5 MG/DL; MAU/CREAT RATIO 6630.1 MCG/MG (0.0-30.0)
== END ==
LOC: M LAB 07:07
PROVIDERS: ATTEND Family Medicine
DX: E11.9 Type 2 diabetes mellitus without complications (principal)

== ENCOUNTER → 2020-03-20 | Outpatient (CLI) | payer MEDICARE ==
--- NOTE | 2020-03-20 14:48 | REP ---
INDICATION: R/O DVT MAIN REG COMPARISON: None. TECHNIQUE: Real time compression and duplex Doppler interrogation of the right lower extremity deep venous system is performed. FINDINGS: The right common femoral, superficial femoral and popliteal veins are fully compressible with transducer pressure and demonstrate normal spontaneous and phasic flow, without evidence of deep venous thrombosis. IMPRESSION: No evidence of deep venous thrombosis of the right lower extremity femoral popliteal venous system. Note is made of a Starr's cyst measuring 6.6 x 1.3 x 3.0 cm. <Electronically signed by Martín Andre > 03/20/20 1218
== END ==
LOC: M RAD 14:19
PROVIDERS: ATTEND Family Medicine
DX: M79.604 Pain in right leg (principal)

== ENCOUNTER → 2020-04-07 | Outpatient (CLI) | payer MEDICARE ==
--- NOTE | 2020-04-10 14:34 | EEG ---
DATE: 04/07/2020 DIAGNOSIS: Memory loss. EEG# [id number] REFERRING PHYSICIAN: Beronica Cali MD HISTORY: Patient is a 79-year-old woman with history of cancer, diabetes, and memory loss since 2018. During EEG, the patient repeated the same story over and over. This EEG was done to rule out epileptic potential and assess degree of encephalopathy. The patient is currently taking Januvia, glimepiride, metformin, hydrochlorothiazide, Aricept, aspirin, etc. TECHNICAL DESCRIPTION: This baseline EEG was recorded by 21-scalp, ear, and two EKG electrodes and was reviewed in bipolar and referential montages following reformatting in 10-20 international electrode placement system. INTERPRETATION: Patient was noted to be in awake and drowsy states during this EEG. Resting and awake background rhythm consisted of 7.5 Hz theta activity measuring 15-40 microvolts in amplitude, which was symmetric bilaterally. Patient became drowsy during this EEG, but no sleep was achieved. Hyperventilation could not be performed. Photic stimulation remained unremarkable. EKG revealed normal sinus rhythm. No focal, lateralizing, or epileptiform abnormalities were seen. No relevant clinical activity was noted. CONCLUSION: This EEG in awake and drowsy states is abnormal due to presence of mild generalized slowing and disorganization of background consistent with nonspecific diffuse cerebral dysfunction suggesting dementia and encephalopathy due to multiple potential causes. No epileptiform abnormalities were seen. Clinical correlation is recommended. MTDD
== END ==
LOC: M SLEEP 07:55
PROVIDERS: ATTEND Psychiatry & Neurology Neurology
DX: R41.3 Other amnesia (principal); R94.01 Abnormal electroencephalogram [EEG]

== ENCOUNTER → 2020-05-05 | Outpatient (CLI) | payer MEDICARE ==
[2020-05-05 14:10] LABS: BASO # 0.1 10^3/uL (0.0-0.2); BASO % 0.6 % (0.0-1.0); EOS # 0.4 10^3/uL (0.0-0.5); HEMATOCRIT 31.3 % (36.0-47.0); HEMOGLOBIN 9.9 g/dl (12.0-15.5); LYMPH # 1.5 10^3/uL (1.5-5.0); LYMPH % 16.3 % (24.0-44.0); MEAN CORPUSCULAR HEMOGLOBIN 30.6 pg (27.0-33.0); MEAN CORPUSCULAR HGB CONC 31.6 g/dl (32.0-36.5); MEAN CORPUSCULAR VOLUME 96.6 fl (80.0-96.0); MONO # 0.7 10^3/uL (0.0-0.8); MONO % 7.5 % (0.0-5.0); NEUTROPHILS # 6.6 10^3/uL (1.5-8.5); NEUTROPHILS % 71.1 % (36.0-66.0); PLATELET COUNT, AUTOMATED 350 10^3/uL (150-450); RED BLOOD COUNT 3.24 10^6/uL (4.00-5.40); WHITE BLOOD COUNT 9.3 10^3/uL (4.0-10.0)
[2020-05-05 14:16] LABS: ALBUMIN 3.3 GM/DL (3.2-5.2); ALT/SGPT 24 U/L (12-78); BILIRUBIN,TOTAL 0.4 MG/DL (0.2-1.0); BLOOD UREA NITROGEN 51 MG/DL (7-18); CALCIUM LEVEL 9.7 MG/DL (8.8-10.2); CARBON DIOXIDE LEVEL 25 MEQ/L (21-32); CHLORIDE LEVEL 110 MEQ/L (98-107); CREATININE FOR GFR 1.39 MG/DL (0.55-1.30); GLUCOSE, FASTING 125 MG/DL (70-100); POTASSIUM SERUM 4.8 MEQ/L (3.5-5.1); RHEUMATOID FACTOR QUANT < 10.0 IU/ML (<15.0); SODIUM LEVEL 140 MEQ/L (136-145)
[2020-05-05 14:24] LABS: VITAMIN B12 LEVEL 463 PG/ML (247-911)
[2020-05-05 14:25] LABS: FOLATE 21.9 NG/ML (>5.4)
[2020-05-05 14:32] LABS: HEMOGLOBIN A1c 7.1 %
[2020-05-05 14:41] LABS: ERYTHROCYTE SEDIMENTATION RATE 58 mm/hr (0-30)
[2020-05-12 03:07] LABS: ANTINUCLEAR ANTIBODIES DIRECT Negative (Negative); VITAMIN B1 LEVEL WHOLE BLOOD 244.4 nmol/L (66.5-200.0); VITAMIN B6,PYRIDOXAL PHOSPHATE 5.4 ug/L (2.0-32.8); VITAMIN E(ALPHA TOCOPHEROL) 7.1 mg/L (9.0-29.0); VITAMIN E(GAMMA TOCOPHEROL) 1.5 mg/L (0.5-4.9)
== END ==
LOC: M PLALAB 10:04
PROVIDERS: ATTEND Psychiatry & Neurology Neurology
DX: R41.89 Other symptoms and signs involving cognitive functions and awareness (principal); Z79.899 Other long term (current) drug therapy

== ENCOUNTER → 2020-05-25 | Outpatient (CLI) | payer MEDICARE | LOC: M LABSMTC 13:00 | PROVIDERS: ATTEND Family Medicine | DX: Z20.822 Contact with and (suspected) exposure to COVID-19 (principal) ==

== ENCOUNTER → 2020-11-14 | Outpatient (CLI) | payer MEDICARE ==
[~2020-11-14] MED LIST changes: -LISI-538 PO; +LISI20TA33 PO
[2020-11-14 14:05] LABS: ALBUMIN 3.2 GM/DL (3.2-5.2); BILIRUBIN,TOTAL 0.5 MG/DL (0.2-1.0); CALCIUM LEVEL 9.5 MG/DL (8.8-10.2); CREATININE FOR GFR 1.62 MG/DL (0.55-1.30); GLOMERULAR FILTRATION RATE 32.6 (>39); POTASSIUM SERUM 5.1 MEQ/L (3.5-5.1); TOTAL PROTEIN 6.7 GM/DL (6.4-8.2)
== END ==
LOC: M PLALAB 10:14
PROVIDERS: ATTEND Family Medicine
DX: I10 Essential (primary) hypertension (principal)

== ENCOUNTER → 2021-01-24 | Outpatient (REF) | payer MEDICARE ==
[2021-01-24 18:31] LABS: PERCENT SATURATION 25.4 % (13.2-45.0)
== END ==
LOC: M LAB REF 16:57
PROVIDERS: ATTEND Internal Medicine Nephrology
DX: D50.9 Iron deficiency anemia, unspecified (principal); N39.0 Urinary tract infection, site not specified

== ENCOUNTER 2021-02-28 05:59 | Inpatient (IN) | payer MEDICARE ==
[~2021-02-28] VITALS: Ht 162.6 cm; Wt 70.0 kg
[2021-02-28] MEDS ORDERED: NS 1,000 ML IV SCH (06:50)
[2021-02-28] MEDS ORDERED: ONDANSETRON 4MG/2ML VIAL IV ONE (07:05)
[2021-02-28 07:21] LABS: BASO # 0.1 10^3/uL (0.0-0.2); BASO % 0.6 % (0.0-1.0); EOS # 0.2 10^3/uL (0.0-0.5); EOS % 1.6 % (0.0-3.0); HEMATOCRIT 30.7 % (36.0-47.0); HEMOGLOBIN 10.1 g/dl (12.0-15.5); LYMPH # 1.8 10^3/uL (1.5-5.0); LYMPH % 14.6 % (24.0-44.0); MEAN CORPUSCULAR HEMOGLOBIN 31.5 pg (27.0-33.0); MEAN CORPUSCULAR HGB CONC 32.9 g/dl (32.0-36.5); MEAN CORPUSCULAR VOLUME 95.6 fl (80.0-96.0); MONO # 0.9 10^3/uL (0.0-0.8); MONO % 7.6 % (2.0-8.0); NEUTROPHILS # 9.3 10^3/uL (1.5-8.5); PLATELET COUNT, AUTOMATED 291 10^3/uL (150-450); RED BLOOD COUNT 3.21 10^6/uL (4.00-5.40); WHITE BLOOD COUNT 12.4 10^3/uL (4.0-10.0)
[2021-02-28] MEDS: MORPHINE 2 MG/ML 1ML VIAL (J2270) IV PRN ×2 (07:38→08:24)
[2021-02-28 07:39] LABS: CALCIUM LEVEL 9.3 MG/DL (8.8-10.2); CREATININE FOR GFR 2.07 MG/DL (0.55-1.30); GLOMERULAR FILTRATION RATE 24.6 (>39); POTASSIUM SERUM 4.1 MEQ/L (3.5-5.1)
[2021-02-28 07:44] LABS: INR 0.95; PROTHROMBIN TIME 13.1 SECONDS (12.7-14.5)
[2021-02-28 07:45] LABS: PARTIAL THROMBOPLASTIN TIME 36.2 SECONDS (25.9-37.0)
[2021-02-28] MEDS ORDERED: XALA0.007 OU (07:48)
[2021-02-28] MEDS ORDERED: DONE10TA90 PO (08:03)
[2021-02-28] MEDS ORDERED: ATOR1TAB19 PO (08:03)
[2021-02-28] MEDS ORDERED: QUET1TAB17 PO (08:03)
[2021-02-28] MEDS ORDERED: FISH1000 PO (08:03)
[2021-02-28] MEDS ORDERED: FURO20TA2 PO (08:03)
[2021-02-28] MEDS ORDERED: D-20TAB PO (08:03)
[2021-02-28] MEDS ORDERED: GLIM2TAB4 PO (08:03)
[2021-02-28] MEDS ORDERED: MELA5TAB7 PO (08:03)
[2021-02-28] MEDS ORDERED: RA B1TAB2 PO (08:03)
[2021-02-28] MEDS ORDERED: LOPE1CAP5 PO (08:06)
[2021-02-28] MEDS ORDERED: ACET-897 PO (08:06)
[2021-02-28] MEDS ORDERED: HOME MED LIST COMPLETE! XX SCH (08:10)
[2021-02-28] MEDS ORDERED: MOM 30ML SUSPENSION UDC PO PRN (08:40)
--- NOTE | 2021-02-28 08:42 | REPVR ---
PROCEDURE INFORMATION: Exam: XR Chest Exam date and time: 02/28/2021 6:46 AM Age: 80 years old Clinical indication: Device placement; Other: Pre op TECHNIQUE: Imaging protocol: XR of the chest. Views: 1 view. COMPARISON: CR PORTABLE CHEST X-RAY 12/10/2016 10:25 AM FINDINGS: Lungs: Unremarkable. No consolidation. Pleural spaces: Unremarkable. No pleural effusion. No pneumothorax. Heart/Mediastinum: Unremarkable. No cardiomegaly. Bones/joints: Degenerative change of the spine. IMPRESSION: 1. No acute cardiopulmonary process. Electronically signed by: Melissa Soni On 02/28/2021 08:41:25 AM
--- NOTE | 2021-02-28 08:43 | HPEPDOC ---
[facility] Medical History & Physical Date of Admission Feb 28, 2021 Date of Service: Feb 28, 2021 History and Physical CHIEF COMPLAINT: R hip pain HISTORY OF PRESENT ILLNESS: Mrs. Arvizu is a 80 yo F, resident of [facility], with a PMHx of CKD3, dementia, NIDDM2, HTN. She is accompanied by her daughter and healthcare proxy at bedside. Patient suffered a fall in the early hours on 02/28/21, likely due to mechanical tripping over a dresser in the dark. She landed on her R hip. XR imaging in the ER showed an acute comminuted angulated intertrochanteric fracture of the R proximal femur. Patient denies any chest pain, SOB, palpitations, n/v/d at the time of my exam. She also denies lightheadedness, palpitations, blurred vision or chest pain at the time of her fall. Dr. Brown of orthopedics service was consulted from ER. There is possibility for ORIF depending on OR availability. Patient will be kept NPO. Pre-op EKG and CXR were obtained, showing no acute abnormalities. Lab review showing WBC 12.4. Cr 2.07 (baseline ~1.6). Patient will be admitted to hospitalist service. PAST MEDICAL HISTORY: CKD 3 NIDDM2 HTN Dementia Visual impairment PAST SURGICAL HISTORY: Bilateral cataracts Tonsillectomy in childhood Hysterectomy SOCIAL HISTORY: resides at [facility] Denies smoking, etoh use, illicit drug use FAMILY HISTORY: patient provided no family history ALLERGIES: Please see below. REVIEW OF SYSTEMS: 10 point ROS conducted, relevant findings are noted in HPI. HOME MEDICATIONS: Please see below. PHYSICAL EXAMINATION: VITAL SIGNS: please see below General: NAD, comfortable HEENT: PERRLA, EOMI, sclerae clear Neck: supple, normal ROM, no JVD Respiratory: lungs CTAB, no wheeze, no rales, no crackles CVS: RRR, normal S1, S2, no murmurs Abdo: soft, no masses, no hepatosplenomegaly, BS+, no rebound tenderness Extremities: no edema, pulses 2+ MSK: no joint deformities, normal ROM Neuro: no focal neuro deficits, moving all 4 extremities, CN2-12 intact. Strength 5/5 in all 4 extremities. No nystagmus. Psych: calm, cooperative, AAO x 3 LABORATORY DATA: See below. IMAGING: Pelvis XR (02/28/21): IMPRESSION: Acute comminuted angulated intertrochanteric fracture right proximal femur. CXR (02/28/21): IMPRESSION: 1. No acute cardiopulmonary process. MICROBIOLOGY: Please see below. ASSESSMENT: 80 yo F, resident of [facility], with a PMHx of CKD3, dementia, NIDDM2, HTN. Admitted for R intertrochanteric hip fx. . PLAN: R hip pain 2/2 intertrochanteric femoral neck fx: Dr. Brown consulted from ER. Keep NPO. Pain control. Morphine IV for breakthrough. [place] prn for moderate pain. DVT ppx post-op per ortho. RCRI index score 1, indicative of a 6.0% risk of 30 day mortality, [place] or cardiac arrest. Given significant morbidity and mortality related to the injury, benefits of surgery outweigh risks. DM2: hold oral meds. ISS and FSBS AC and HS. Check a1c. HTN: resume home meds. Dementia with behaviors: c/w seroquel 12.5 mg daily. c/w donepezil. LISA on CKD: Cr 2.06. Baseline 1.6. Give gently IVF. Check renal US. Hold lasix at this time. Follows with Dr. Kwan. DVT ppx: TEDs. Dispo: pending clinical improvement. Admission expected to last > 2 midnights. Vital Signs Vital Signs Date Time Temp Pulse Resp B/P (MAP) Pulse Ox O2 Delivery O2 Flow Rate FiO2 02/28/21 08:24 20 97 Nasal Cannula 2.0 02/28/21 07:52 97.1 61 140/67 (91) Laboratory Data Labs 24H Laboratory Tests 2 02/28/21 06:55: Immature Granulocyte % (Auto) 0.6, Neutrophils (%) (Auto) 75.0H, Lymphocytes (%) (Auto) 14.6L, Monocytes (%) (Auto) 7.6, Eosinophils (%) (Auto) 1.6, Basophils (%) (Auto) 0.6, Neutrophils # (Auto) 9.3H, Lymphocytes # (Auto) 1.8, Monocytes # (Auto) 0.9H, Eosinophils # (Auto) 0.2, Basophils # (Auto) 0.1, Nucleated Red Blood Cells % (auto) 0.0, Prothrombin Time 13.1, Prothromb Time International Ratio 0.95, Activated Partial Thromboplast Time 36.2, Anion Gap 9, Glomerular Filtration Rate 24.6L, Calcium Level 9.3, Coronavirus (COVID-19)(PCR) NEGATIVE CBC/BMP Laboratory Tests 02/28/21 06:55 Home Medications Scheduled Aspirin (Aspirin EC) 81 Mg Tab, 81 MG PO DAILY Atorvastatin Calcium (Atorvastatin Calcium) 10 Mg Tablet, 10 MG PO 3XW MON,WED,FRI Cholecalciferol (Vitamin D3) (Vitamin D3) 50 Mcg Tablet, 50 MCG PO DAILY Donepezil HCl (Donepezil HCl) 10 Mg Tablet, 10 MG PO QHS Furosemide (Furosemide) 20 Mg Tablet, 20 MG PO DAILY Glimepiride (Glimepiride) 2 Mg Tablet, 2 MG PO DAILY Latanoprost (Xalatan) 0.005% 2.5ML Drops, 1 DROP OU QHS Melatonin (Melatonin) 5 Mg Tablet, 5 MG PO QHS Alexis-3 Fatty Acids/Fish Oil (Fish Oil 1,000 mg Capsule) 1 Each Capsule, 1 CAP PO DAILY Quetiapine Fumarate (Quetiapine Fumarate) 25 Mg Tablet, 12.5 MG PO DAILY Sitagliptin (Januvia) 50 Mg Tablet, 50 MG PO DAILY Vitamin B Complex (Vitamin B Complex) 1 Each Tablet, 1 TAB PO DAILY Scheduled PRN Acetaminophen (Tylenol Extra Strength) 500 Mg Tablet, 1,000 MG PO Q6H PRN for PAIN LEVEL 1-4 Loperamide HCl (Loperamide) 2 Mg Capsule, 2 MG PO TID PRN for AFTER EACH LOOSE STOOL Allergies Coded Allergies: No Known Allergies (Verified , 05/17/09) A-FIB/CHADSVASC A-FIB History Current/History of A-Fib/PAF?: No BHARATI BENITES MD Feb 28, 2021 08:43
--- NOTE | 2021-02-28 08:45 | REPVR ---
PROCEDURE INFORMATION: Exam: XR Right Femur Exam date and time: 02/28/2021 6:46 AM Age: 80 years old Clinical indication: Pain; Hip; Right; Additional info: Trauma TECHNIQUE: Imaging protocol: XR Right femur. Views: 2 views. COMPARISON: US Duplex, Ext,LOWER veins,unilat 03/20/2020 2:33 PM FINDINGS: Bones/joints: Osteopenia. The proximal right femur is not included. Advanced degenerative arthritis of the right knee with genu valgus alignment and lateral subluxation of the tibia. Marked narrowing of the femorotibial joint space. Soft tissues: Soft tissue vascular calcification. Inability to assess for the presence of effusion of the knee with poor definition of the soft tissue interface distally. IMPRESSION: 1. Osteopenia. 2. Advanced degenerative change of the right knee. Electronically signed by: Melissa Soni On 02/28/2021 08:44:40 AM
--- NOTE | 2021-02-28 08:48 | REPVR ---
PROCEDURE INFORMATION: Exam: XR Right Hip Exam date and time: 02/28/2021 6:46 AM Age: 80 years old Clinical indication: Hip pain; Right hip; Additional info: Trauma TECHNIQUE: Imaging protocol: XR Right hip. Views: 2 or 3 views hip with pelvis when performed. COMPARISON: CT ABD PELVIS WITH CONTRAST 12/10/2016 5:59 PM FINDINGS: Bones/joints: Angulated and displaced comminuted intertrochanteric fracture of the proximal right femur. Degenerative arthritis right hip joint. Osteopenia. Advanced degenerative change of lower lumbar spine. Note of degenerative changes of the left hip. Soft tissues: Unremarkable. Vasculature: Pelvic vascular calcification. IMPRESSION: Acute comminuted angulated intertrochanteric fracture right proximal femur. Electronically signed by: Melissa Soni On 02/28/2021 08:47:43 AM
[2021-02-28] MEDS ORDERED: FUROSEMIDE 20 MG TAB PO SCH (09:00)
[2021-02-28] MEDS: ASPIRIN 81MG ENTERIC TABLET PO SCH (09:00)
[2021-02-28] MEDS ORDERED: HALOPERIDOL 5MG/ML VIAL (J1630 PER 1) IM STA (10:16)
--- NOTE | 2021-02-28 10:18 | CR.PDOC ---
General Date of Consultation: Feb 28, 2021 Consultation REASON FOR CONSULTATION/CHIEF COMPLAINT: Right hip pain HISTORY OF PRESENT ILLNESS: Patient resides at a retirement type facility or assisted living. Sometime early this morning she got out of bed and became tripped up and fell onto her right side. She was unable to stand up and was brought to the emergency room where x-ray imaging demonstrated a right hip intertrochanteric fracture with subtrochanteric extension. Her daughter is accompanying her at the bedside. She is legally blind. She has issues with renal insufficiency and she is diabetic. Prior to her fall, she was mobilizing well without any ambulatory aids. She would only utilize a white cane due to her issues with sites when she was in an unfamiliar environment ALLERGIES: Please see below. HOME MEDICATIONS: Please see below. PAST MEDICAL HISTORY: CKD 3 NIDDM2 HTN Dementia Visual impairment PAST SURGICAL HISTORY: Bilateral cataracts Tonsillectomy in childhood Hysterectomy SOCIAL HISTORY: resides at [facility] Denies smoking, etoh use, illicit drug use FAMILY HISTORY: patient provided no family history ALLERGIES: Please see below. LABORATORY DATA: See below. IMAGING: Pelvis XR (02/28/21): IMPRESSION: Acute comminuted angulated intertrochanteric fracture right proximal femur with subtrochanteric extension MICROBIOLOGY: Please see below. REVIEW OF SYSTEMS: Denies any significant pain or discomfort aside from right hip and thigh PHYSICAL EXAMINATION: VITAL SIGNS: Please see below. GENERAL APPEARANCE: In no acute distress. The patient does show a little bit of confusion as she is continually asking why her right leg is in pain, despite being told several times about her hip fracture. EXTREMITIES: Right leg is shortened and internally rotated. NEURO vascular: Patient reports that she is grossly neurovascularly intact to light touch to the right foot. She has a palpable posterior tibial pulse and she is moving her toes and ankle. Examination of the right hip and thigh area shows the prominence associated with the fracture without any obvious signs of bruising or otherwise. The patient does have a small abrasion to the right lower leg which the daughter reports is likely associated with scratching. LABORATORY DATA: Please see below. ASSESSMENT/PLAN: 1. Patient has been n.p.o. since about 5 PM yesterday. She has been consented for a right hip open reduction internal fixation with a short gamma possible long gamma nail. I have discussed the risks and benefits of this procedure with her and her daughter. Her daughter has signed consent on her behalf as she is the [facility] power of staff attorney. The patient has been booked into the operating room. Based on the volume of cases in the OR it is most likely that the case will be going on in the afternoon; however she will remain n.p.o. until we have a better idea of case distribution and availability of resources in the OR this afternoon. 2. The hospitalist service has informed me that the patient may go to the OR today after the review of her past medical history. I will update them if the case will be delayed until tomorrow based on OR availability. Addendum: The patient will be taken to the operating room March 01, 2021 for her open reduction internal fixation. She will be n.p.o. as of midnight. Vital Signs/I&O Vital Signs Date Time Temp Pulse Resp B/P (MAP) Pulse Ox O2 Delivery O2 Flow Rate FiO2 02/28/21 08:34 22 02/28/21 08:24 97 Nasal Cannula 2.0 02/28/21 07:52 97.1 61 140/67 (91) Laboratory Data Labs 24H Laboratory Tests 2 02/28/21 06:55: Immature Granulocyte % (Auto) 0.6, Neutrophils (%) (Auto) 75.0H, Lymphocytes (%) (Auto) 14.6L, Monocytes (%) (Auto) 7.6, Eosinophils (%) (Auto) 1.6, Basophils (%) (Auto) 0.6, Neutrophils # (Auto) 9.3H, Lymphocytes # (Auto) 1.8, Monocytes # (Auto) 0.9H, Eosinophils # (Auto) 0.2, Basophils # (Auto) 0.1, Nucleated Red Blood Cells % (auto) 0.0, Prothrombin Time 13.1, Prothromb Time International Ratio 0.95, Activated Partial Thromboplast Time 36.2, Anion Gap 9, Glomerular Filtration Rate 24.6L, Calcium Level 9.3, Coronavirus (COVID-19)(PCR) NEGATIVE CBC/BMP Laboratory Tests 02/28/21 06:55 Allergies Coded Allergies: No Known Allergies (Verified , 05/17/09) Home Medications Scheduled Aspirin (Aspirin EC) 81 Mg Tab, 81 MG PO DAILY, (Reported) Atorvastatin Calcium (Atorvastatin Calcium) 10 Mg Tablet, 10 MG PO 3XW, (Reported) MON,FRI,FRI Cholecalciferol (Vitamin D3) (Vitamin D3) 50 Mcg Tablet, 50 MCG PO DAILY, (Reported) Donepezil HCl (Donepezil HCl) 10 Mg Tablet, 10 MG PO QHS, (Reported) Furosemide (Furosemide) 20 Mg Tablet, 20 MG PO DAILY, (Reported) Glimepiride (Glimepiride) 2 Mg Tablet, 2 MG PO DAILY, (Reported) Latanoprost (Xalatan) 0.005% 2.5ML Drops, 1 DROP OU QHS, (Reported) Melatonin (Melatonin) 5 Mg Tablet, 5 MG PO QHS, (Reported) Bussey-3 Fatty Acids/Fish Oil (Fish Oil 1,000 mg Capsule) 1 Each Capsule, 1 CAP PO DAILY, (Reported) Quetiapine Fumarate (Quetiapine Fumarate) 25 Mg Tablet, 12.5 MG PO DAILY, (Reported) Sitagliptin (Januvia) 50 Mg Tablet, 50 MG PO DAILY, (Reported) Vitamin B Complex (Vitamin B Complex) 1 Each Tablet, 1 TAB PO DAILY, (Reported) Scheduled PRN Acetaminophen (Tylenol Extra Strength) 500 Mg Tablet, 1,000 MG PO Q6H PRN for PAIN LEVEL 1-4, (Reported) Loperamide HCl (Loperamide) 2 Mg Capsule, 2 MG PO TID PRN for AFTER EACH LOOSE STOOL, (Reported) BAL MANNING MD Feb 28, 2021 10:18
[2021-02-28] MEDS ORDERED: HALOPERIDOL 5MG/ML VIAL (J1630 PER 1) As Ordered ONE (10:29)
[2021-02-28] MEDS ORDERED: DEXTROSE 50% 50 ML SYRINGE IV PRN (11:15)
[2021-02-28] MEDS ORDERED: GLUCAGON INJ 1MG VIAL SC PRN (11:15)
[2021-02-28] MEDS ORDERED: GLUCOSE 4GM CHEW TABLET PO PRN (11:15)
[2021-02-28] MEDS: HumaLOG INSULIN (NovoLOG) PER UNIT SC SCH ×3 (12:00→20:59)
[2021-02-28 12:10] VITALS: BP 163/66
[2021-02-28] MEDS: D5W/0.45% SODIUM CHLORIDE 1,000 ML IV SCH ×2 (13:51→20:38)
[2021-02-28] MEDS: ACETAMINOPHEN TAB 650MG DOSE (2X325MG) PO PRN ×2 (13:56→20:37)
[2021-02-28] MEDS: QUEtiapine FUMARATE 12.5 MG HALF-TAB PO SCH (13:57)
[2021-02-28] MEDS: ATORVASTATIN 10 MG TAB PO SCH (13:57)
[2021-02-28] MEDS: DONEPEZIL 5 MG TAB PO SCH (20:37)
[2021-02-28] MEDS: LATANOPROST 0.005% OPHTH SOLN 2.5 ML OU SCH (20:37)
[2021-02-28 22:00] VITALS: BP 175/82
[2021-03-01] VITALS (8 sets, daily range): BP systolic 119–135; BP diastolic 48–86; O2SAT 92–94
[2021-03-01] MEDS ORDERED: HALOPERIDOL 5MG/ML VIAL (J1630 PER 1) IM ONE (01:25)
[2021-03-01] MEDS ORDERED: MORPHINE 4 MG/ML 1ML VIAL/SYRINGE (J2270) IV ONE ×2 (02:30→08:25)
[2021-03-01] MEDS: ACETAMINOPHEN TAB 650MG DOSE (2X325MG) PO PRN (05:08)
[2021-03-01 06:15] LABS: BASO % 0.4 % (0.0-1.0); EOS # 0.1 10^3/uL (0.0-0.5); EOS % 1.1 % (0.0-3.0); HEMATOCRIT 26.3 % (36.0-47.0); HEMOGLOBIN 8.7 g/dl (12.0-15.5); LYMPH # 1.1 10^3/uL (1.5-5.0); LYMPH % 12.4 % (24.0-44.0); MEAN CORPUSCULAR HEMOGLOBIN 31.9 pg (27.0-33.0); MEAN CORPUSCULAR HGB CONC 33.1 g/dl (32.0-36.5); MEAN CORPUSCULAR VOLUME 96.3 fl (80.0-96.0); NEUTROPHILS # 6.6 10^3/uL (1.5-8.5); NEUTROPHILS % 74.5 % (36.0-66.0); PLATELET COUNT, AUTOMATED 250 10^3/uL (150-450); RED BLOOD COUNT 2.73 10^6/uL (4.00-5.40); WHITE BLOOD COUNT 8.9 10^3/uL (4.0-10.0)
[2021-03-01 06:41] LABS: ALBUMIN 2.7 GM/DL (3.2-5.2); BILIRUBIN,TOTAL 0.7 MG/DL (0.2-1.0); CALCIUM LEVEL 8.7 MG/DL (8.8-10.2); CREATININE FOR GFR 1.71 MG/DL (0.55-1.30); GLOMERULAR FILTRATION RATE 30.7 (>39); POTASSIUM SERUM 4.4 MEQ/L (3.5-5.1); TOTAL PROTEIN 6.3 GM/DL (6.4-8.2)
--- NOTE | 2021-03-01 07:26 | ECGEPIP ---
[facility] - ED Test Date: 2021-02-28 Pat Name: MINAL STOCKTON Department: Room: - Gender: Female Worm Picker: [email or web address] : [id number] Requested By: TIFFANY FINNEGAN PA-C. Order Number: [id number] Reading MD: Skyler Torres Measurements Intervals Left Hand Rate: 62 P: 47 AK: 194 QRS: 32 QRSD: 82 T: 56 QT: 444 QTc: 450 Interpretive Statements Normal sinus rhythm SIMILAR TO 12/10/16 Electronically Signed on 03-01-2021 7:26:10 EDT by Skyler Torres
[2021-03-01] MEDS ORDERED: NORCO, ANEXSIA 5/325MG TABLET (HYDROcodone/ACETAMINOPHEN) PO PRN ×2 (08:25→20:00)
[2021-03-01] MEDS: QUEtiapine FUMARATE 12.5 MG HALF-TAB PO SCH ×2 (09:00→10:05)
[2021-03-01] MEDS: ASPIRIN 81MG ENTERIC TABLET PO SCH (09:00)
[2021-03-01] MEDS: HumaLOG INSULIN (NovoLOG) PER UNIT SC SCH ×4 (09:00→21:00)
--- NOTE | 2021-03-01 12:58 | REP ---
INDICATION: hypoxia COMPARISON: 02/28/2021 TECHNIQUE: Portable AP view of the chest FINDINGS: The mediastinum and cardiac silhouette are stable and within normal limits for portable technique. There is a new small focal area of linear platelike atelectasis in the left mid lung zone. Skeletal structures are intact. IMPRESSION: Small area of atelectasis in the left mid lung zone suggested. <Electronically signed by Ho Kimbrough > 03/01/21 0790
[2021-03-01] MEDS ORDERED: TRANEXAMIC ACID 100 MG/ML 10ML VIAL As Ordered ONE (16:19)
[2021-03-01] MEDS ORDERED: ceFAZolin 2 GM/D5W 50 ML IV BAG (J0690 PER 500MG) As Ordered ONE (16:20)
[2021-03-01] MEDS ORDERED: BUPIVACAINE HCL 0.5% 30 ML VIAL As Ordered ONE (16:54)
[2021-03-01] MEDS ORDERED: MIDAZOLAM INJ 2MG/2ML VIAL (J2250 PER 1MG) As Ordered ONE (17:02)
[2021-03-01] MEDS ORDERED: VASOPRESSIN INJ 20 UNITS/ML VIAL As Ordered ONE (17:02)
[2021-03-01] MEDS ORDERED: ETOMIDATE INJ 20MG/10ML VIAL As Ordered ONE (17:02)
[2021-03-01] MEDS ORDERED: KETAMINE HCL 200 MG/20 ML VIAL As Ordered ONE (17:02)
[2021-03-01] MEDS ORDERED: propofoL 200 MG/20 ML VIAL As Ordered ONE (17:02)
[2021-03-01] MEDS ORDERED: fentaNYL 100 MCG/2 ML INJECTION (J3010) As Ordered ONE (17:34)
--- NOTE | 2021-03-01 18:08 | IPNPDOC ---
Date Seen The patient was seen on 03/01/21. Progress Note SUBJECTIVE: Patient seen examined at bedside. In moderate pain given 1 dose of morphine 2 mg IV. Her daughters at bedside. Patient continues to be slightly hypoxic requiring 2 L of oxygen to maintain saturation above 94%. Patient is otherwise more alert this morning than yesterday she denies any chest pain palpitations nausea vomiting or diarrhea. OBJECTIVE PHYSICAL EXAMINATION: VITAL SIGNS: Please see below. General: NAD, comfortable HEENT: PERRLA, EOMI, sclerae clear Neck: supple, normal ROM, no JVD Respiratory: lungs CTAB, no wheeze, no rales, no crackles CVS: RRR, normal S1, S2, no murmurs Abdo: soft, no masses, no hepatosplenomegaly, BS+, no rebound tenderness Extremities: Valgus deformity of the right lower extremity. No cyanosis, pulses intact 2+ dorsalis pedis and posterior tibial MSK: no joint deformities, normal ROM Neuro: no focal neuro deficits, moving all 4 extremities, CN2-12 intact. Strength 5/5 in all 4 extremities. No nystagmus. Psych: calm, cooperative, AAO x 3 LABORATORY DATA, IMAGING STUDIES, MICROBIOLOGY: Please see below. DVT prophylaxis ordered?: Heparin 5000 units every 8 after surgery ASSESSMENT: 80 yo F, resident of [facility], with a PMHx of CKD3, dementia, NIDDM2, HTN. Admitted for R intertrochanteric hip fx. . PLAN: R hip pain 2/2 intertrochanteric femoral neck fx: Dr. Brown consulted from ER. Keep NPO. Pain control. Morphine IV for breakthrough. [place] prn for moderate pain. DVT ppx post-op per ortho. RCRI index score 1, indicative of a 6.0% risk of 30 day mortality, AR or cardiac arrest. Given significant morbidity and morta lity related to the injury, benefits of surgery outweigh risks. DM2: hold oral meds. ISS and FSBS AC and HS. Check a1c. Hypoxia: Requiring 2 L/min. Likely secondary to atelectasis as evidenced by c hest x-ray. Reviewed as above. Check BMP. HTN: resume home meds. Dementia with behaviors: c/w seroquel 12.5 mg daily. c/w donepezil. LISA on CKD: Creatinine improved to 1.7. Near baseline. Stop IV fluids. Check renal US. Hold lasix at this time. Follows with Dr. Kwan. DVT ppx: TEDs. Dispo: pending clinical improvement. Admission expected to last > 2 midnights. VS, I&O, 24H, Fishbone Vital Signs/I&O Vital Signs Date Time Temp Pulse Resp B/P (MAP) Pulse Ox O2 Delivery O2 Flow Rate FiO2 03/01/21 14:00 98.6 74 18 134/84 (101) 97 03/01/21 10:00 2.0 I&O- Last 24 Hours up to 6 AM 03/01/21 06:00 Intake Total 1870 ml Output Total 1750 ml Balance 120 ml Laboratory Data 24H LABS Laboratory Tests 2 02/28/21 20:42: Bedside Glucose (Misc Panel) 318H 03/01/21 05:29: Immature Granulocyte % (Auto) 0.6, Neutrophils (%) (Auto) 74.5H, Lymphocytes (%) (Auto) 12.4L, Monocytes (%) (Auto) 11.0H, Eosinophils (%) (Auto) 1.1, Basophils (%) (Auto) 0.4, Neutrophils # (Auto) 6.6, Lymphocytes # (Auto) 1.1L, Monocytes # (Auto) 1.0H, Eosinophils # (Auto) 0.1, Basophils # (Auto) 0.0, Nucleated Red Blood Cells % (auto) 0.0, Anion Gap 6L, Glomerular Filtration Rate 30.7L, Calcium Level 8.7L, Magnesium Level 2.0, Total Bilirubin 0.7, Aspartate Amino Transf (AST/SGOT) 27, Alanine Aminotransferase (ALT/SGPT) 28, Alkaline Phosphatase 88, Total Protein 6.3L, Albumin 2.7L, Albumin/Globulin Ratio 0.8L 03/01/21 11:26: Bedside Glucose (Misc Panel) 304H 03/01/21 15:31: Bedside Glucose (Misc Panel) 143H CBC/BMP Laboratory Tests 03/01/21 05:29 BHARATI BENITES MD Mar 01, 2021 18:08
--- NOTE | 2021-03-01 19:20 | ROOPDOC ---
[facility] Report Of Operation Report of Operation DATE OF PROCEDURE: 03/01/21 PREPROCEDURE DIAGNOSES: Right hip fracture with intertrochanteric involvement and subtrochanteric extension POSTPROCEDURE DIAGNOSES: Comminuted right hip fracture with intertrochanteric involvement, greater trochanteric splint and subtrochanteric extension PROCEDURE PERFORMED: Open reduction internal fixation with long gamma nail ICD 10 modifier 22: 50% more time and 50% more effort were utilized during this procedure as a result of the complex nature of the fracture with significant displacement and comminution. SURGEON: Nick Manning MD RETAIL WORKER: Allison Ferraro PA-C ANESTHESIA: Spinal ESTIMATED BLOOD LOSS: Approximately 150 mL. COMPLICATIONS: No known complications REMARKS: Patient was seen in the preoperative area and the right lower extremity was marked. The patient did have significant shortening of the right limb associated with the fracture FINDINGS: Complex intertrochanteric fracture with subtrochanteric extension, comminuted SPECIMENS REMOVED: None PROCEDURE NOTE: . DESCRIPTION OF PROCEDURE: The patient was brought to the operating room and her spinal anesthetic was performed on the bed after a surgical pause was carried out. The patient was then transferred to the traction table. The operative leg was placed in the boot and padded appropriately with slight traction applied while the nonoperative leg was placed in the well-leg nur with appropriate padding. She was safely secured to the table. A surgical pause and safety checklist was carried out prior to fluoroscopic imaging for landmark identification and performing the reduction maneuvers under fluoroscopy. There was some difficulty obtaining the reduction. The boot was removed from traction and the leg was taken through a [place] maneuver twice to help separate the fragments. This appeared to improve the position of the fragment. There was a posterior sag which was correctable with positioning of a crutch or mallet in order to put push the femur up. Traction was applied and the knee Was placed in a position where it was facing upwards to avoid any malrotation. The patient then underwent a sterile prep and drape in the standard fashion using a curtain type drape. An incision was made approximately 8 cm in length just proximal to the greater trochanter. The skin subcutaneous fascia and other layers were transected. A start point was identified. Using fluoroscopy a guidepin was inserted down the femoral canal. It was noted that there was a split of the greater trochanter. There is also noted that the femoral neck and head was a separate fragment that was significantly displaced with flexion of the fragment. It was decided that this would have to be addressed once the nail portion was passed through the femoral canal. The Steinmann pin was then overreamed with the starter reamer. This was used as a guide to introduce the long guidewire with the ball point. This was advanced under fluoroscopy to the superior aspect of the patella which was confirmed on AP and lateral fluoroscopic imaging. The nail was measured to be appropriate at 360 mm x 10 mm. Reamers were then introduced under fluoroscopic guidance checking AP and lateral imaging from 9 mm up to 12 mm diameter. The chosen nail was then advanced to an appropriate level for the cephalomedullary screw. A separate incision was then made on the lateral aspect of the thigh just anterior to the femur. This was done under fluoroscopic guidance. The skin subcutaneous tissue fascia and muscle muscle was split. The anterior spike in flexion was identified and this was held down using a Chan. On AP and lateral fluoroscopic imaging this demonstrated an acceptable reduction position. This was held in position while the guide for the 125 cephalomedullary screw was positioned. The skin was incised down through skin subcutaneous tissue and fascia. The guide was advanced down to the bone and secured there. A starter guidepin was placed. This was checked on AP and lateral fluoroscopic imaging and found to have an acceptable position slightly inferior and the more substantial bone. The screw was measured to be 100 mm. This was reamed under fluoroscopy. The screw was then advanced under fluoroscopic guidance. There was no rotation occurring as the fragment was being held down with a Chan during this procedure. Compression was then performed with the gamma nail device. The guidewire was removed and the guide pins were removed and fluoroscopic imaging was utilized. This demonstrated that the previously flexed head neck fragment was holding position which appeared to be in an acceptable position. Fluoroscopy was then used to obtain perfect circles distally in the nail. There was no breach of the anterior cortex by the nail. The oblong hole was utilized using the perfect blackfeet technique and fluoroscopy. The drill bit was advanced through the bone across the oblong hole. Using fluoroscopy this was measured to be approximately a 47.5 millimeter screw. This was advanced under fluoroscopy and AP and lateral imaging was obtained post screw placement. AP and lateral imaging of the proximal femur was also obtained with fluoroscopy. The 4 wound sites were irrigated copiously with normal sterile saline followed b y deep closure with #1 Vicryl to the proximal wound. The other wounds had 2.0 closures as did this proximal wound followed by Monocryl closure 3.0. The distal screw stab hole incision was closed with interrupted Monocryl three-point 0 suture. Steri-Strips were applied to all the wounds followed by Telfa and Tegaderm dressings. Local anesthetic of 0.5% Marcaine was instilled at 30 mL to all of the incision sites. Patient tolerated the procedure well with no known complications. Her anesthetic was reversed and she was taken off the fracture table and transferred to the recovery room in stable condition with no known complications. The patient will be touchdown weightbearing and will likely require rehabilitation as a result of this complex hip fracture. NICK MANNING MD Mar 01, 2021 19:20
[2021-03-01] MEDS ORDERED: ONDANSETRON 4MG/2ML VIAL IV PRN ×2 (19:40→20:00)
[2021-03-01] MEDS ORDERED: oxyCODONE 5MG TAB PO PRN ×2 (19:40)
[2021-03-01] MEDS ORDERED: LR 1,000 ML IV SCH ×2 (19:55→20:00)
[2021-03-01] MEDS ORDERED: fentaNYL 100 MCG/2 ML INJECTION (J3010) IV PRN (20:00)
--- NOTE | 2021-03-01 20:02 | REP ---
INDICATION: S/P FX REPAIR. ORDERED FEMUR WITH HIP AND KNEE COMPARISON: None. TECHNIQUE: AP and cross-table lateral views of the right femur. FINDINGS: Patient is noted to be status post satisfactory open reduction and fixation for intertrochanteric proximal femur fracture. Overlying postsurgical changes to the soft tissues are noted. 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 IMPRESSION: Status post satisfactory open reduction and fixation for comminuted intertrochanteric femur fracture. <Electronically signed by Ho Kimbrough > 03/01/211957
[2021-03-01] MEDS: DONEPEZIL 5 MG TAB PO SCH (21:32)
[2021-03-01] MEDS: LATANOPROST 0.005% OPHTH SOLN 2.5 ML OU SCH (21:33)
[2021-03-01] MEDS: HEPARIN SOD (PORCINE) 5000UNITS/ML 1ML VIAL/SYRINGE SQ SCH (21:33)
[2021-03-01] MEDS: DOCUSATE SODIUM 100MG CAPSULE PO SCH (21:33)
[2021-03-02] VITALS (10 sets, daily range): BP systolic 121–180; BP diastolic 48–96; O2SAT 93
[2021-03-02] MEDS: ACETAMINOPHEN TAB 650MG DOSE (2X325MG) PO SCH ×4 (00:01→18:20)
[2021-03-02] MEDS: ceFAZolin SOD 2 GM in IV 1 EA IV SCH ×2 (00:02→08:50)
[2021-03-02 05:58] LABS: BASO % 0.4 % (0.0-1.0); EOS # 0.1 10^3/uL (0.0-0.5); EOS % 1.1 % (0.0-3.0); LYMPH # 1.4 10^3/uL (1.5-5.0); LYMPH % 17.4 % (24.0-44.0); MEAN CORPUSCULAR HEMOGLOBIN 31.2 pg (27.0-33.0); MEAN CORPUSCULAR HGB CONC 32.5 g/dl (32.0-36.5); MEAN CORPUSCULAR VOLUME 95.8 fl (80.0-96.0); MONO % 12.7 % (2.0-8.0); NEUTROPHILS # 5.4 10^3/uL (1.5-8.5); PLATELET COUNT, AUTOMATED 195 10^3/uL (150-450); RED BLOOD COUNT 2.15 10^6/uL (4.00-5.40)
[2021-03-02 06:01] LABS: HEMATOCRIT 20.6 % (36.0-47.0); HEMOGLOBIN 6.7 g/dl (12.0-15.5)
[2021-03-02] MEDS: HEPARIN SOD (PORCINE) 5000UNITS/ML 1ML VIAL/SYRINGE SQ SCH (06:27)
[2021-03-02 06:32] LABS: BILIRUBIN,TOTAL 0.4 MG/DL (0.2-1.0); CALCIUM LEVEL 8.3 MG/DL (8.8-10.2); CREATININE FOR GFR 1.68 MG/DL (0.55-1.30); GLOMERULAR FILTRATION RATE 31.3 (>39); MAGNESIUM LEVEL 1.8 MG/DL (1.8-2.4); POTASSIUM SERUM 4.2 MEQ/L (3.5-5.1); TOTAL PROTEIN 4.9 GM/DL (6.4-8.2)
[2021-03-02] MEDS: HumaLOG INSULIN (NovoLOG) PER UNIT SC SCH ×4 (07:30→21:57)
--- NOTE | 2021-03-02 08:18 | IPNPDOC ---
Text Note Date of Service The patient was seen on 03/02/21. NOTE Postop day 1 for right hip open reduction internal fixation The patient is doing well. She is accompanied by her daughter in the hospital as she is legally blind. Her pain is been relatively well controlled overnight. She denies any chest pain or shortness of breath. The incisions were appropriately dressed with no obvious staining or otherwise. The patient had intact sensation to the first webspace of her right foot. She was able to move her toes and do ankle flexion. She had a palpable posterior tibial and dorsalis pedis pulse X-ray imaging taken in PACU was independently ordered and reviewed by myself. This demonstrates the intramedullary nail prosthesis in position without any obvious signs of complication. This is to the right femur The patient will likely require rehabilitation given her medical comorbidities and the restricted weightbearing that she will have of touchdown weightbearing given the severe comminution associated with the fracture. She will be reviewed by the hospitalist service today, postoperatively. VS,Marcie, I+O VS, Marcie, I+O Laboratory Tests 03/02/21 05:29 Vital Signs Date Time Temp Pulse Resp B/P (MAP) Pulse Ox O2 Delivery O2 Flow Rate FiO2 03/02/21 06:57 16 03/02/21 06:21 98.0 68 121/48 (72) 96 Room Air 03/02/21 04:36 2.0 I&O- Last 24 Hours up to 6 AM 03/02/21 06:00 Intake Total 1110 ml Output Total 1500 ml Balance -390 ml BAL MANNING MD Mar 02, 2021 08:18
--- NOTE | 2021-03-02 08:33 | REP ---
INDICATION: shweta on ckd COMPARISON: None TECHNIQUE: Real time gilman scale ultrasound examination using curved array transducer. FINDINGS: Right kidney measures 10.6 x 4.9 x 3.9 cm and appears hyperechoic with increased central sinus fat and renovascular calcifications. 1.8 cm upper pole, 1.3 cm midpole, and 1.5 cm lower pole simple cysts are identified. No hydronephrosis, nephrolithiasis, or renal mass lesion. Left kidney measures 10.9 x 4.8 x 4.4 cm and appears hyperechoic with increased central sinus fat and renovascular calcifications. 1.2 cm midpole cyst noted. No hydronephrosis, nephrolithiasis, or renal mass lesion. Bladder is unremarkable. Incidental cysts noted in the left upper quadrant may represent pancreatic pseudocysts given the patient's history. IMPRESSION: 1. Chronic medical renal disease with few scattered bilateral simple appearing cysts. No hydronephrosis. 2. 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 <Electronically signed by Ho Kimbrough > 03/02/21 [id number]
[2021-03-02] MEDS: ASPIRIN 81MG ENTERIC TABLET PO SCH ×2 (08:51→21:56)
[2021-03-02] MEDS: FERROUS SULFATE 325MG TAB PO SCH (08:51)
[2021-03-02] MEDS: ATORVASTATIN 10 MG TAB PO SCH (08:51)
[2021-03-02] MEDS: ASCORBIC ACID 500 MG TAB PO SCH (08:51)
[2021-03-02] MEDS: QUEtiapine FUMARATE 12.5 MG HALF-TAB PO SCH (08:51)
[2021-03-02] MEDS: DOCUSATE SODIUM 100MG CAPSULE PO SCH ×2 (08:52→21:56)
[2021-03-02] MEDS ORDERED: NAPROXEN 250 MG TAB PO SCH (09:00)
[2021-03-02 09:32] LABS: HEMOGLOBIN A1c 9.9 %
--- NOTE | 2021-03-02 11:24 | REP ---
INDICATION: RIGHT HIP FRACTURE. COMPARISON: 02/28/2021. TECHNIQUE: Multiple C-arm views right femur. FINDINGS: There is placement of metallic internal fixation in the right femur including an intramedullary ricky. Intertrochanteric fracture of the proximal right femur is again noted. Visualized osseous structures are well-aligned. IMPRESSION: 199 seconds fluoroscopy time utilized. <Electronically signed by Martín Andre > 03/02/21 8022
[2021-03-02] MEDS ORDERED: FUROSEMIDE 20MG/2ML VIAL (J1940) IV ONE (14:00)
--- NOTE | 2021-03-02 17:56 | IPNPDOC ---
Date Seen The patient was seen on 03/02/21. Progress Note SUBJECTIVE: Patient seen examined at bedside. POD #1. Doing well. Noted to haave acute anemia, Hgb 6.7. No blood seen in urine or stool. Daughter at bedside. Consent for blood transfusion obtain. Post-op was saturating at 94% on RA. Denies CP, palpitations, n/v/d. Pain at R hip well controlled. OBJECTIVE PHYSICAL EXAMINATION: VITAL SIGNS: Please see below. General: NAD, comfortable HEENT: PERRLA, EOMI, sclerae clear Neck: supple, normal ROM, no JVD Respiratory: lungs CTAB, no wheeze, no rales, no crackles CVS: RRR, normal S1, S2, no murmurs Abdo: soft, no masses, no hepatosplenomegaly, BS+, no rebound tenderness Extremities: Dressing on R hip CDI. No underlying induration. No cyanosis, pulses intact 2+ dorsalis pedis and posterior tibial MSK: no joint deformities, normal ROM Neuro: no focal neuro deficits, moving all 4 extremities, CN2-12 intact. Strength 5/5 in all 4 extremities. No nystagmus. Psych: calm, cooperative, AAO x 3 LABORATORY DATA, IMAGING STUDIES, MICROBIOLOGY: Please see below. Renal US (03/02/21): IMPRESSION: 1. Chronic medical renal disease with few scattered bilateral simple appearing cysts. No hydronephrosis. 2. 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 XR Femur R (03/01/21): Status post satisfactory open reduction and fixation for comminuted intertrochanteric femur fracture. DVT prophylaxis ordered?: SCDs. TEDs. ASSESSMENT: 80 yo F, resident of [facility], with a PMHx of CKD3, dementia, NIDDM2, HTN. Admitted for R intertrochanteric hip fx. . PLAN: R hip pain 2/2 intertrochanteric femoral neck fx: POD#1. Dressing CDI. PT/OT. DVT ppx with heparin held, due to acute anemia. SCDs/TEDs for now. Likely developed hematoma in quadriceps compartment, leading to acute anemia. Acute on chronic anemia: Hgb 6.7. Likely combination of quad compartment hematoma 2/2 femur fx, as well intraoperative losses ~150cc. Obtained consent from daughter at bedside. DM2: hold oral meds. ISS and FSBS AC and HS. A1c 9.9. Hypoxia: Requiring 2 L/min. Likely secondary to atelectasis as evidenced by chest x-ray. Reviewed as above. BMP 1388. Given CKF and age category, not particularly indicative of a CHF flare. Gave 20 mg IV lasix after 1st unit of prbc. HTN: resume lasix. Add amlopine. Labetol 100 mg once for hypertensive urgency. Dementia with behaviors: c/w seroquel 12.5 mg daily. c/w donepezil. LISA on CKD: Creatinine improved to 1.7. Near baseline. Stop IV fluids. Check renal US. Resume furosemide. Given 20 mg IV after 1st unit of pRBC. Follows with Dr. Kwan. DVT ppx: TEDs. Dispo: pending clinical improvement. Admission expected to last > 2 midnights. VS, I&O, 24H, Fishbone Vital Signs/I&O Vital Signs Date Time Temp Pulse Resp B/P (MAP) Pulse Ox O2 Delivery O2 Flow Rate FiO2 03/02/21 17:00 99.1 70 16 180/82 97 Nasal Cannula 2.0 I&O- Last 24 Hours up to 6 AM 03/02/21 06:00 Intake Total 1110 ml Output Total 1500 ml Balance -390 ml Laboratory Data 24H LABS Laboratory Tests 2 03/01/21 19:04: Bedside Glucose (Misc Panel) 116H 03/01/21 20:24: Bedside Glucose (Misc Panel) 128H 03/02/21 05:29: Immature Granulocyte % (Auto) 0.4, Neutrophils (%) (Auto) 68.0H, Lymphocytes (%) (Auto) 17.4L, Monocytes (%) (Auto) 12.7H, Eosinophils (%) (Auto) 1.1, Basophils (%) (Auto) 0.4, Neutrophils # (Auto) 5.4, Lymphocytes # (Auto) 1.4L, Monocytes # (Auto) 1.0H, Eosinophils # (Auto) 0.1, Basophils # (Auto) 0.0, Nucleated Red Blood Cells % (auto) 0.0, Anion Gap 5L, Glomerular Filtration Rate 31.3L, Estimated Mean Plasma Glucose 237H, Hemoglobin A1c 9.9, Calcium Level 8.3L, Magnesium Level 1.8, Total Bilirubin 0.4, Aspartate Amino Transf (AST/SGOT) 31, Alanine Aminotransferase (ALT/SGPT) 21, Alkaline Phosphatase 69, WK-Cpk-A-Type Natriuretic Peptide 1388H, Total Protein 4.9#L, Albumin 2.0#L, Albumin/Globulin Ratio 0.7L 03/02/21 11:53: Bedside Glucose (Misc Panel) 253H CBC/BMP Laboratory Tests 03/02/21 05:29 BHARATI BENITES MD Mar 02, 2021 17:56
[2021-03-02] MEDS: amLODIPine 5 MG TAB PO SCH (18:19)
[2021-03-02] MEDS ORDERED: LABETALOL 100MG TAB PO ONE (19:00)
[2021-03-02 19:50] LABS: BASO % 0.4 % (0.0-1.0); EOS # 0.1 10^3/uL (0.0-0.5); EOS % 1.2 % (0.0-3.0); HEMATOCRIT 30.2 % (36.0-47.0); LYMPH # 1.2 10^3/uL (1.5-5.0); LYMPH % 14.4 % (24.0-44.0); MEAN CORPUSCULAR HEMOGLOBIN 31.2 pg (27.0-33.0); MEAN CORPUSCULAR HGB CONC 33.4 g/dl (32.0-36.5); MEAN CORPUSCULAR VOLUME 93.2 fl (80.0-96.0); MONO # 0.8 10^3/uL (0.0-0.8); MONO % 9.4 % (2.0-8.0); NEUTROPHILS # 6.3 10^3/uL (1.5-8.5); NEUTROPHILS % 74.2 % (36.0-66.0); PLATELET COUNT, AUTOMATED 219 10^3/uL (150-450); RED BLOOD COUNT 3.24 10^6/uL (4.00-5.40); WHITE BLOOD COUNT 8.5 10^3/uL (4.0-10.0)
[2021-03-02 19:59] LABS: HEMOGLOBIN 10.1 g/dl (12.0-15.5)
[2021-03-02] MEDS ORDERED: QUEtiapine FUMARATE 12.5 MG HALF-TAB PO SCH (21:50)
[2021-03-02] MEDS: DONEPEZIL 5 MG TAB PO SCH (21:56)
[2021-03-02] MEDS: LATANOPROST 0.005% OPHTH SOLN 2.5 ML OU SCH (21:56)
[2021-03-03] MEDS: ACETAMINOPHEN TAB 650MG DOSE (2X325MG) PO SCH ×4 (00:34→17:39)
[2021-03-03 06:24] VITALS: BP 148/61
[2021-03-03 08:15] LABS: HEMATOCRIT 26.8 % (36.0-47.0); MEAN CORPUSCULAR HEMOGLOBIN 30.8 pg (27.0-33.0); MEAN CORPUSCULAR HGB CONC 33.6 g/dl (32.0-36.5); MEAN CORPUSCULAR VOLUME 91.8 fl (80.0-96.0); PLATELET COUNT, AUTOMATED 195 10^3/uL (150-450); RED BLOOD COUNT 2.92 10^6/uL (4.00-5.40)
[2021-03-03 09:08] LABS: ALBUMIN 1.9 GM/DL (3.2-5.2); BILIRUBIN,TOTAL 0.6 MG/DL (0.2-1.0); CALCIUM LEVEL 8.4 MG/DL (8.8-10.2); GLOMERULAR FILTRATION RATE 25.6 (>39); MAGNESIUM LEVEL 1.8 MG/DL (1.8-2.4); POTASSIUM SERUM 3.9 MEQ/L (3.5-5.1)
[2021-03-03] MEDS: HumaLOG INSULIN (NovoLOG) PER UNIT SC SCH ×4 (09:16→21:53)
[2021-03-03] MEDS: LEVEMIR (INSULIN DETEMIR) 1 UNITS/0.01ML SC SCH (09:17)
[2021-03-03] MEDS: amLODIPine 5 MG TAB PO SCH (09:19)
[2021-03-03] MEDS: ASPIRIN 81MG ENTERIC TABLET PO SCH ×2 (09:19→21:53)
[2021-03-03] MEDS: FERROUS SULFATE 325MG TAB PO SCH (09:19)
[2021-03-03] MEDS: DOCUSATE SODIUM 100MG CAPSULE PO SCH ×2 (09:19→21:53)
[2021-03-03] MEDS: ASCORBIC ACID 500 MG TAB PO SCH (09:20)
[2021-03-03] MEDS: FUROSEMIDE 20 MG TAB PO SCH (09:20)
[2021-03-03] MEDS: SENNA 8.6 MG TAB (SENOKOT) PO PRN (09:24)
[2021-03-03 14:00] VITALS: BP 144/60
[2021-03-03] MEDS: QUEtiapine FUMARATE 12.5 MG HALF-TAB PO SCH (16:52)
--- NOTE | 2021-03-03 17:42 | IPNPDOC ---
Date Seen The patient was seen on 03/03/21. Progress Note SUBJECTIVE: Patient seen examined at bedside. POD #2. Doing well. Continues to require 2L NC. OBJECTIVE PHYSICAL EXAMINATION: VITAL SIGNS: Please see below. General: NAD, comfortable HEENT: PERRLA, EOMI, sclerae clear Neck: supple, normal ROM, no JVD Respiratory: lungs CTAB, no wheeze, no rales, no crackles CVS: RRR, normal S1, S2, no murmurs Abdo: soft, no masses, no hepatosplenomegaly, BS+, no rebound tenderness Extremities: Dressing on R hip CDI. No underlying induration. No cyanosis, pulses intact 2+ dorsalis pedis and posterior tibial MSK: no joint deformities, normal ROM Neuro: no focal neuro deficits, moving all 4 extremities, CN2-12 intact. Strength 5/5 in all 4 extremities. No nystagmus. Psych: calm, cooperative, AAO x 3 LABORATORY DATA, IMAGING STUDIES, MICROBIOLOGY: Please see below. Renal US (03/02/21): IMPRESSION: 1. Chronic medical renal disease with few scattered bilateral simple appearing cysts. No hydronephrosis. 2. 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 XR Femur R (03/01/21): Status post satisfactory open reduction and fixation for comminuted intertrochanteric femur fracture. DVT prophylaxis ordered?: SCDs. TEDs. ASSESSMENT: 80 yo F, resident of [facility], with a PMHx of CKD3, dementia, NIDDM2, HTN. Admitted for R intertrochanteric hip fx. . PLAN: R hip pain 2/2 intertrochanteric femoral neck fx: POD#2. Dressing CDI. PT/OT. DVT ppx with heparin held, due to acute anemia. SCDs/TEDs for now. Likely developed hematoma in quadriceps compartment, leading to acute anemia. Acute on chronic anemia: Hgb improved from 6.7 to 10 after 2 units pRBC.. Decreased to 9.0 on repeat. Likely combination of quad compartment hematoma 2/2 femur fx, as well intraoperative losses ~150cc. DM2: hold oral meds. ISS and FSBS AC and HS. A1c 9.9. Hypoxia: Requiring 2 L/min. Likely secondary to atelectasis as evidenced by chest x-ray. Reviewed as above. BMP 1388. Given CKF and age category, not particularly indicative of a CHF flare. Received IV lasix x 2. Resume home dose of furosemide 20 mg daily. Will obtain 2D echo. HTN: furosemide 20 mg. holding losartan. Added amlodipine 5 mg daily. BP improved. Dementia with behaviors: c/w seroquel 12.5 mg daily. c/w donepezil. LISA on CKD: Cr labile, presented with LISA, improved now rising likely 2/2 diuretic use. gave intermitted doses Lasix 20 mg IV x 2. Renal US without hydronephrosis. Nephrology consult placed with Dr. Gal Kwan. DVT ppx: TEDs. Dispo: pending clinical improvement. Admission expected to last > 2 midnights. VS, I&O, 24H, Fishbone Vital Signs/I&O Vital Signs Date Time Temp Pulse Resp B/P (MAP) Pulse Ox O2 Delivery O2 Flow Rate FiO2 03/03/21 14:00 97.1 70 13 144/60 (88) 94 Nasal Cannula 2.0 I&O- Last 24 Hours up to 6 AM 03/03/21 06:00 Intake Total 2180 ml Output Total 850 ml Balance 1330 ml Laboratory Data 24H LABS Laboratory Tests 2 03/02/21 19:01: Immature Granulocyte % (Auto) 0.4, Neutrophils (%) (Auto) 74.2H, Lymphocytes (%) (Auto) 14.4L, Monocytes (%) (Auto) 9.4H, Eosinophils (%) (Auto) 1.2, Basophils (%) (Auto) 0.4, Neutrophils # (Auto) 6.3, Lymphocytes # (Auto) 1.2L, Monocytes # (Auto) 0.8, Eosinophils # (Auto) 0.1, Basophils # (Auto) 0.0, Nucleated Red Blood Cells % (auto) 0.0 03/02/21 20:20: Bedside Glucose (Misc Panel) 357H 03/03/21 07:28: Anion Gap 6L, Glomerular Filtration Rate 25.6L, Calcium Level 8.4L, Magnesium Level 1.8, Total Bilirubin 0.6, Aspartate Amino Transf (AST/SGOT) 21, Alanine Aminotransferase (ALT/SGPT) 8L, Alkaline Phosphatase 88, Total Protein 5.0L, Albumin 1.9L, Albumin/Globulin Ratio 0.6L 03/03/21 07:30: Nucleated Red Blood Cells % (auto) 0.0 03/03/21 07:36: Bedside Glucose (Misc Panel) 325H 03/03/21 12:02: Bedside Glucose (Misc Panel) 272H 03/03/21 16:34: Bedside Glucose (Misc Panel) 277H CBC/BMP Laboratory Tests 03/02/21 19:01 03/03/21 07:28 03/03/21 07:30 BHARATI BENITES MD Mar 03, 2021 17:42
--- NOTE | 2021-03-03 18:49 | IPNPDOC ---
Text Note Date of Service The patient was seen on 03/03/21. NOTE POD 2 Right HIP ORIF Pt doing well. Issues with sleep and confusion as per Daughter. Dressings intact, no staining or bleeding. Hb has risen in response to transfusions. Pt has not worked with PT due to post op anemia. Will likely require rehab post op VS,Fishbone, I+O VS, Fishbone, I+O Laboratory Tests 03/02/21 19:01 03/03/21 07:28 03/03/21 07:30 Vital Signs Date Time Temp Pulse Resp B/P (MAP) Pulse Ox O2 Delivery O2 Flow Rate FiO2 03/03/21 14:00 97.1 70 13 144/60 (88) 94 Nasal Cannula 2.0 I&O- Last 24 Hours up to 6 AM 03/03/21 06:00 Intake Total 2180 ml Output Total 850 ml Balance 1330 ml BAL MANNING MD Mar 03, 2021 18:49
[2021-03-03 20:00] VITALS: O2SAT 95
[2021-03-03 20:35] VITALS: BP 136/60
[2021-03-03] MEDS: DONEPEZIL 5 MG TAB PO SCH (21:53)
[2021-03-03] MEDS: LATANOPROST 0.005% OPHTH SOLN 2.5 ML OU SCH (21:53)
[2021-03-04 05:30] VITALS: BP 147/64
[2021-03-04] MEDS: ACETAMINOPHEN TAB 650MG DOSE (2X325MG) PO SCH ×4 (05:50→17:35)
[2021-03-04] MEDS: SENNA 8.6 MG TAB (SENOKOT) PO PRN (05:50)
[2021-03-04 07:02] LABS: BASO # 0.1 10^3/uL (0.0-0.2); BASO % 0.6 % (0.0-1.0); EOS # 0.3 10^3/uL (0.0-0.5); EOS % 2.9 % (0.0-3.0); HEMATOCRIT 28.5 % (36.0-47.0); HEMOGLOBIN 9.5 g/dl (12.0-15.5); LYMPH # 1.7 10^3/uL (1.5-5.0); LYMPH % 17.5 % (24.0-44.0); MEAN CORPUSCULAR HEMOGLOBIN 30.9 pg (27.0-33.0); MEAN CORPUSCULAR HGB CONC 33.3 g/dl (32.0-36.5); MEAN CORPUSCULAR VOLUME 92.8 fl (80.0-96.0); MONO % 10.3 % (2.0-8.0); NEUTROPHILS # 6.5 10^3/uL (1.5-8.5); NEUTROPHILS % 68.2 % (36.0-66.0); PLATELET COUNT, AUTOMATED 229 10^3/uL (150-450); RED BLOOD COUNT 3.07 10^6/uL (4.00-5.40); WHITE BLOOD COUNT 9.6 10^3/uL (4.0-10.0)
[2021-03-04 07:21] LABS: CALCIUM LEVEL 8.7 MG/DL (8.8-10.2); CREATININE FOR GFR 1.98 MG/DL (0.55-1.30); GLOMERULAR FILTRATION RATE 25.9 (>39); MAGNESIUM LEVEL 1.9 MG/DL (1.8-2.4); POTASSIUM SERUM 3.8 MEQ/L (3.5-5.1)
[2021-03-04] MEDS: HumaLOG INSULIN (NovoLOG) PER UNIT SC SCH ×4 (08:07→21:14)
[2021-03-04] MEDS: ASCORBIC ACID 500 MG TAB PO SCH (08:08)
[2021-03-04] MEDS: ASPIRIN 81MG ENTERIC TABLET PO SCH ×2 (08:08→21:15)
[2021-03-04] MEDS: FUROSEMIDE 20 MG TAB PO SCH (08:08)
[2021-03-04] MEDS: DOCUSATE SODIUM 100MG CAPSULE PO SCH ×2 (08:08→21:15)
[2021-03-04] MEDS: LEVEMIR (INSULIN DETEMIR) 1 UNITS/0.01ML SC SCH (08:08)
[2021-03-04] MEDS: FERROUS SULFATE 325MG TAB PO SCH (08:08)
[2021-03-04] MEDS: amLODIPine 5 MG TAB PO SCH (08:11)
--- NOTE | 2021-03-04 10:57 | IPNPDOC ---
Date Seen The patient was seen on 03/04/21. Progress Note SUBJECTIVE: Patient seen examined at bedside. POD #3. Doing well. Saturating well on 1L NC. OBJECTIVE PHYSICAL EXAMINATION: VITAL SIGNS: Please see below. General: NAD, comfortable HEENT: PERRLA, EOMI, sclerae clear Neck: supple, normal ROM, no JVD Respiratory: lungs CTAB, no wheeze, no rales, no crackles CVS: RRR, normal S1, S2, no murmurs Abdo: soft, no masses, no hepatosplenomegaly, BS+, no rebound tenderness Extremities: Dressing on R hip CDI. No underlying induration. No cyanosis, pulses intact 2+ dorsalis pedis and posterior tibial MSK: no joint deformities, normal ROM Neuro: no focal neuro deficits, moving all 4 extremities, CN2-12 intact. Strength 5/5 in all 4 extremities. No nystagmus. Psych: calm, cooperative, AAO x 3 LABORATORY DATA, IMAGING STUDIES, MICROBIOLOGY: Please see below. Renal US (03/02/21): IMPRESSION: 1. Chronic medical renal disease with few scattered bilateral simple appearing cysts. No hydronephrosis. 2. 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 XR Femur R (03/01/21): Status post satisfactory open reduction and fixation for comminuted intertrochanteric femur fracture. DVT prophylaxis ordered?: SCDs. Mtz. ASSESSMENT: 80 yo F, resident of [facility], with a PMHx of CKD3, dementia, NIDDM2, HTN. Admitted for R intertrochanteric hip fx. . PLAN: R hip pain 2/2 intertrochanteric femoral neck fx: POD#3. Dressing CDI. PT/OT. DVT ppx with heparin held, due to acute anemia. Hgb stable x 2 days, resume heparin ppx. Acute on chronic anemia: Likely combination of quad compartment hematoma 2/2 femur fx, as well intraoperative losses ~150cc. Anemic to hgb 6.7. S/p 2units of pRBC. Hgb stable at 9.5. Resume heparin for DVT ppx. Constipation: bowel regimen. Order soap suds enema. DM2: hold oral meds. ISS and FSBS AC and HS. A1c 9.9. Hypoxia: Requiring 2 L/min. Likely secondary to atelectasis as evidenced by chest x-ray. Reviewed as above. BMP 1388. Given CKF and age category, not particularly indicative of a CHF flare. Received IV lasix x 2. Resume home dose of furosemide 20 mg daily. Will obtain 2D echo. HTN: furosemide 20 mg. holding losartan. Added amlodipine 5 mg daily. BP improved. Dementia with behaviors: c/w seroquel 12.5 mg daily. c/w donepezil. LISA on CKD: Cr labile, presented with LISA, improved now rising likely 2/2 diuretic use. gave intermitted doses Lasix 20 mg IV x 2. Renal US without hydronephrosis. Nephrology consult placed with Dr. Gal Kwan. DVT ppx: TEDs. Dispo: pending clinical improvement. PT evaluation deems patient appropriate for rehab on DC. ARU admission screening ordered. VS, I&O, 24H, Fishbone Vital Signs/I&O Vital Signs Date Time Temp Pulse Resp B/P (MAP) Pulse Ox O2 Delivery O2 Flow Rate FiO2 03/04/21 08:11 75 142/67 03/04/21 05:30 98.0 20 94 Nasal Cannula 2.0 I&O- Last 24 Hours up to 6 AM 03/04/21 06:00 Intake Total 1010 ml Output Total 1200 ml Balance -190 ml Laboratory Data 24H LABS Laboratory Tests 2 03/03/21 12:02: Bedside Glucose (Misc Panel) 272H 03/03/21 16:34: Bedside Glucose (Misc Panel) 277H 03/03/21 20:39: Bedside Glucose (Misc Panel) 285H 03/04/21 06:37: Immature Granulocyte % (Auto) 0.5, Neutrophils (%) (Auto) 68.2H, Lymphocytes (%) (Auto) 17.5L, Monocytes (%) (Auto) 10.3H, Eosinophils (%) (Auto) 2.9, Basophils (%) (Auto) 0.6, Neutrophils # (Auto) 6.5, Lymphocytes # (Auto) 1.7, Monocytes # (Auto) 1.0H, Eosinophils # (Auto) 0.3, Basophils # (Auto) 0.1, Nucleated Red Blood Cells % (auto) 0.0, Anion Gap 5L, Glomerular Filtration Rate 25.9L, Calciu m Level 8.7L, Magnesium Level 1.9 CBC/BMP Laboratory Tests 03/04/21 06:37 BHARATI BENITES MD Mar 04, 2021 10:57
[2021-03-04] MEDS: HEPARIN SOD (PORCINE) 5000UNITS/ML 1ML VIAL/SYRINGE SQ SCH ×2 (12:57→21:16)
--- NOTE | 2021-03-04 13:24 | CR ---
CONSULTATION DATE: 02/28/2021 CONSULTATION REQUESTED BY: Martín Arvizu M.D. REASON FOR CONSULTATION: Chronic kidney disease (CKD) stage IV. HISTORY OF PRESENT ILLNESS: Ms. Ирина Stewart is a 80-year-old female. She recently established in the nephrology office with Dr. Cem Kwan and had one visit there. Patient's recent outpatient labs done in the nephrology office showed creatinine of 2.0 with GFR of 24. Her daughter (Nathalie) tells me the patient was recently discontinued off of metformin by the primary care physician. She also has a past medical history of non-insulin dependent diabetes mellitus (most recent A1C 9.9%), hypertension, dementia, visual impairment and other comorbid conditions mentioned below. She was admitted to [facility] on February 28, 2021 with a fracture of the right proximal femur. Her admission creatinine was 2.0 and her creatinine today is 1.9. Nephrology service was requested for help in the management of the patient's chronic kidney disease. Her hospital course has been fairly uneventful. She underwent right hip open reduction internal fixation of the fracture site on March 01, 2021 and she did receive 2 units of packed red blood cells on March 02, 2021. Patient is seen and examined this morning at the bedside and she offers no complaints. Her daughter is present as well and reports patient recently had a bowel movement after several days of constipation and has worked once with physical therapy and is pending discharge to the acute rehabilitation unit and they have no other concerns. PAST MEDICAL HISTORY: 1. Chronic kidney disease (CKD) stage IIIB, borderline stage IV (creatinine has recently been fluctuating from 1.6 to 2.0). 2. Hypertension. 3. Non-insulin dependent diabetes mellitus. 4. Dementia. 5. Anemia. 6. Visual impairment. 7. Dyslipidemia. ALLERGIES: No known drug allergies. PAST SURGICAL HISTORY: 1. Bilateral cataracts. 2. Tonsillectomy in childhood. 3. Hysterectomy. 4. Open reduction internal fixation right hip fracture, March 01, 2021. HOME MEDICATIONS: Reviewed and include: - aspirin 81 mg daily - Lipitor 10 mg three times a week - vitamin D 350 mcg by mouth daily - donepezil 10 mg by mouth at bedtime - Lasix 20 mg by mouth daily - glimepiride 2 mg by mouth daily - melatonin 5 mg by mouth at bedtime - omega 3 fatty acid one capsule by mouth daily - quetiapine 12.5 mg by mouth daily - Januvia 50 mg by mouth daily - vitamin B complex one tablet by mouth daily FAMILY HISTORY: No family history was obtainable. REVIEW OF SYSTEMS: Unobtainable due to the patient's dementia; however, there are no fevers or chills reports. There is no cough or shortness of breath reported. At home, she does not use oxygen. There is no chest pain or palpitations reported. She is diuretic dependent at home. There is no nausea, vomiting or diarrhea reported. She recently had constipation. There is no hematuria or dysuria reported. She had a PureWick external female catheter removed this morning. There is anemia reported. There is no anticoagulant use long-term reported. She had a recent right hip fracture and is with limited mobility. Has a history of diabetes. No thyroid problems. There is a history of dementia. There is no history of seizure or syncope. There are no rashes or ulcers reported. The remainder of the review of systems is negative or as history of present illness (HPI). PHYSICAL EXAMINATION: VITAL SIGNS: Temperature 98.0, pulse 78, respiratory rate 20, blood pressure 147/65, saturating 94% on 2 liters nasal cannula. INTAKE AND OUTPUT: Intake yesterday was 890. Urine output yesterday was 500. There was also incontinent voids. Weight in the bed scale today was not recorded. GENERAL: Patient is seen sitting in the chair, elderly female, calm and cooperative, but poor historian. Daughter is present at the bedside. HEENT: Extraocular muscles are intact. There is no conjunctival pallor. Sclerae is clear. NECK: Supple. Jugular veins were not elevated while she was sitting upright. HEART SOUNDS: Regular. S1, S2. No murmur. LUNGS: Clear to auscultation. No crackle, rale or rhonchus. She is comfortable on room air at the time of my visit. ABDOMEN: Soft, obese and nontender. GENITOURINARY: She has no catheter present. Daughter reports a PureWick catheter was removed this morning. EXTREMITIES: The right hip incision site was not examined. She does have asymmetric edema, more so on the right lower extremity as compared to the left. NEUROLOGIC: She moves all four extremities on command, answers simple questions appropriately and cooperative with physical examination. PSYCHIATRIC: Calm and cooperative. LABORATORY STUDIES: Sodium 135, potassium 3.8, bicarbonate 22, BUN 44, creatinine 1.9. Hemoglobin 9.5, platelets 229. IMAGING DATA: Renal ultrasound done today shows bilateral, simple-appearing renal cysts. No hydronephrosis. INPATIENT MEDICATIONS: - Tylenol 650 mg by mouth every 6 hours - amlodipine 5 mg by mouth daily - ascorbic acid 500 mg by mouth daily - aspirin 81 mg by mouth twice a day - atorvastatin 10 mg Friday, Friday, Friday - docusate 100 mg by mouth twice a day - donepezil 10 mg by mouth at bedtime - ferrous sulfate 325 mg by mouth daily - Lasix 20 mg by mouth daily - heparin 5000 units subcutaneous every 8 hours - insulin - Milk of Magnesia as needed - naproxen 250 mg by mouth twice a day (which I have stopped) - Zofran as needed - oxycodone as needed - Seroquel 12.5 mg by mouth at bedtime - Senokot two tablets as needed - tramadol as needed PROBLEMS: 1. Chronic kidney disease (CKD) stage IIIB, borderline stage IV. I spoke with the patient's daughter, Nathalie, to get further history regarding the patient's renal function. She recently established in the outpatient nephrology office with Dr. Cem Kwan and had her first visit a few weeks ago. Creatinine was 2.0 at that time, with GFR of 24. Nathalie tells me that the patient was discontinued on metformin not too long ago by her primary care physician as well. Her renal function on this admission has ranged from creatinine of 1.6 to 2.0 and appears to be fairly stable at her recent baseline. I do note that the patient was ordered for as needed nonsteroidal antiinflammatories (NSAIDs) (naproxen), but has not received any dose and I did discontinue the naproxen. Her renal ultrasound was otherwise unremarkable. She had a PureWick catheter that was removed this morning and is passing urine independently. 2. Hypertension. Blood pressure is well controlled with amlodipine and low dose Lasix. Continue current regimen. 3. Localized edema. Patient has asymmetric edema, more pronounced on the right lower extremity and it is secondary to the recent right hip fracture and open reduction internal fixation. Continue current dose of Lasix. No echocardiogram is noted in the chart. We will keep an eye on her serial brain natriuretic peptide (BNP) and volume status and adjust the diuretic as needed. 4. Anemia. Iron stores were recently checked and were satisfactory. Transferrin saturation was 25%. She received 2 units of packed red blood cells on this admission. No need to start erythropoiesis stimulating agent at this time. 5. Hypoxia requiring 1-2 liters per minute of oxygen via nasal cannula. Chest x-ray done March 01, 2021 did not show any pulmonary vascular congestion or pleural effusion. She is using the incentive spirometer. Continue current dose of Lasix. Thank you for involving me in the care of Ms. Arvizu. I will be happy to follow her along with you.
[2021-03-04 14:00] VITALS: BP 148/65
[2021-03-04] MEDS: QUEtiapine FUMARATE 12.5 MG HALF-TAB PO SCH (17:35)
[2021-03-04] MEDS: DONEPEZIL 5 MG TAB PO SCH (21:15)
[2021-03-04] MEDS: LATANOPROST 0.005% OPHTH SOLN 2.5 ML OU SCH (21:16)
[2021-03-04 22:00] VITALS: BP_SYST 141; BP_SYST 152; BP_DIAS 64; BP_DIAS 84
[2021-03-05] MEDS: HEPARIN SOD (PORCINE) 5000UNITS/ML 1ML VIAL/SYRINGE SQ SCH ×3 (05:00→20:48)
[2021-03-05] MEDS: ACETAMINOPHEN TAB 650MG DOSE (2X325MG) PO SCH ×4 (05:01→17:52)
[2021-03-05 05:56] VITALS: BP 165/77
[2021-03-05 07:52] LABS: BASO # 0.1 10^3/uL (0.0-0.2); BASO % 0.6 % (0.0-1.0); EOS # 0.3 10^3/uL (0.0-0.5); EOS % 3.9 % (0.0-3.0); HEMATOCRIT 26.9 % (36.0-47.0); HEMOGLOBIN 9.1 g/dl (12.0-15.5); LYMPH # 1.6 10^3/uL (1.5-5.0); LYMPH % 19.2 % (24.0-44.0); MEAN CORPUSCULAR HEMOGLOBIN 31.1 pg (27.0-33.0); MEAN CORPUSCULAR HGB CONC 33.8 g/dl (32.0-36.5); MEAN CORPUSCULAR VOLUME 91.8 fl (80.0-96.0); MONO # 0.9 10^3/uL (0.0-0.8); NEUTROPHILS # 5.6 10^3/uL (1.5-8.5); NEUTROPHILS % 65.8 % (36.0-66.0); PLATELET COUNT, AUTOMATED 248 10^3/uL (150-450); RED BLOOD COUNT 2.93 10^6/uL (4.00-5.40); WHITE BLOOD COUNT 8.5 10^3/uL (4.0-10.0)
[2021-03-05 08:25] LABS: CALCIUM LEVEL 8.5 MG/DL (8.8-10.2); CREATININE FOR GFR 1.92 MG/DL (0.55-1.30); GLOMERULAR FILTRATION RATE 26.8 (>39); POTASSIUM SERUM 3.8 MEQ/L (3.5-5.1)
[2021-03-05] MEDS: HumaLOG INSULIN (NovoLOG) PER UNIT SC SCH ×4 (08:46→20:49)
[2021-03-05] MEDS: LEVEMIR (INSULIN DETEMIR) 1 UNITS/0.01ML SC SCH (08:46)
[2021-03-05] MEDS: ASCORBIC ACID 500 MG TAB PO SCH (08:46)
[2021-03-05] MEDS: ASPIRIN 81MG ENTERIC TABLET PO SCH ×2 (08:47→20:48)
[2021-03-05] MEDS: FERROUS SULFATE 325MG TAB PO SCH (08:47)
[2021-03-05] MEDS: DOCUSATE SODIUM 100MG CAPSULE PO SCH ×2 (08:47→20:48)
[2021-03-05] MEDS: FUROSEMIDE 20 MG TAB PO SCH ×2 (08:47→17:52)
[2021-03-05] MEDS: ATORVASTATIN 10 MG TAB PO SCH (08:47)
[2021-03-05] MEDS: amLODIPine 5 MG TAB PO SCH (08:54)
[2021-03-05 09:00] VITALS: O2SAT 95
--- NOTE | 2021-03-05 10:50 | IPNPDOC ---
Date Seen The patient was seen on 03/05/21. Progress Note SUBJECTIVE: Patient seen examined at bedside. POD #4. Doing well. Saturating well on RA, now 96%. Having regular bowel movements. Daughter is at bedside, states improvement in activity level and mentation. OBJECTIVE PHYSICAL EXAMINATION: VITAL SIGNS: Please see below. General: NAD, comfortable HEENT: PERRLA, EOMI, sclerae clear Neck: supple, normal ROM, no JVD Respiratory: lungs CTAB, no wheeze, no rales, no crackles CVS: RRR, normal S1, S2, no murmurs Abdo: soft, no masses, no hepatosplenomegaly, BS+, no rebound tenderness Extremities: Dressing on R hip CDI. No underlying induration. No cyanosis, pulses intact 2+ dorsalis pedis and posterior tibial MSK: no joint deformities, normal ROM Neuro: no focal neuro deficits, moving all 4 extremities, CN2-12 intact. Strength 5/5 in all 4 extremities. No nystagmus. Psych: calm, cooperative, AAO x 3 LABORATORY DATA, IMAGING STUDIES, MICROBIOLOGY: Please see below. Renal US (03/02/21): IMPRESSION: 1. Chronic medical renal disease with few scattered bilateral simple appearing cysts. No hydronephrosis. 2. 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 XR Femur R (03/01/21): Status post satisfactory open reduction and fixation for comminuted intertrochanteric femur fracture. DVT prophylaxis ordered?: Heparin 5000 units SC q8h. SCDs. TEDs. ASSESSMENT: 80 yo F, resident of [facility], with a PMHx of CKD3, dementia, NIDDM2, HTN. Admitted for R intertrochanteric hip fx. . PLAN: R hip pain 2/2 intertrochanteric femoral neck fx: POD#4. Dressing CDI. PT/OT. D VT ppx with heparin held, due to acute anemia. Hgb stable x 2 days, resume heparin ppx. ARU screening request placed. Acute on chronic anemia: Likely combination of quad compartment hematoma 2/2 fe mur fx, as well intraoperative losses ~150cc. Anemic to hgb 6.7. S/p 2units of pRBC. Hgb stable > 9. Resumeed heparin for DVT ppx. Constipation: bowel regimen. S/p soap suds enema. Having regular BMs. DM2: hold oral meds. ISS and FSBS AC and HS. A1c 9.9. Hypoxia: Resolved. Likely secondary to atelectasis as evidenced by chest x-ray. Reviewed as above. BMP 1388. Given CKF and age category, not particularly indicative of a CHF flare. Received IV lasix x 2. Resume home dose of furosemide 20 mg daily. Ordered 2D echo. Presently saturating on RA at 96%. HTN: furosemide 20 mg BID. holding losartan. Added amlodipine 5 mg daily. BP improved. Dementia with behaviors: c/w seroquel 12.5 mg daily. c/w donepezil. LISA on CKD: Cr labile, presented with LISA, improved now rising likely 2/2 diuretic use. gave intermitted doses Lasix 20 mg IV x 2. Renal US without hydronephrosis. Nephrology consult placed with Dr. Gal Kwan. Presently receives furosemide 20 mg BID. DVT ppx: heparin 5000 units SC TID. SCDs. TEDs. Dispo: pending clinical improvement. PT evaluation deems patient appropriate for rehab on DC. ARU admission screening ordered. VS, I&O, 24H, Fishbone Vital Signs/I&O Vital Signs Date Time Temp Pulse Resp B/P (MAP) Pulse Ox O2 Delivery O2 Flow Rate FiO2 03/05/21 08:54 76 139/65 03/05/21 05:56 99.1 18 91 Nasal Cannula 1.0 I&O- Last 24 Hours up to 6 AM 03/05/21 05:59 Intake Total 1440 ml Output Total 2000 ml Balance -560 ml Laboratory Data 24H LABS Laboratory Tests 2 03/04/21 12:01: Bedside Glucose (Misc Panel) 343H 03/04/21 16:39: Bedside Glucose (Misc Panel) 378H 03/04/21 19:41: Bedside Glucose (Misc Panel) 332H 03/05/21 07:16: Immature Granulocyte % (Auto) 0.5, Neutrophils (%) (Auto) 65.8, Lymphocytes (%) (Auto) 19.2L, Monocytes (%) (Auto) 10.0H, Eosinophils (%) (Auto) 3.9H, Basophils (%) (Auto) 0.6, Neutrophils # (Auto) 5.6, Lymphocytes # (Auto) 1.6, Monocytes # (Auto) 0.9H, Eosinophils # (Auto) 0.3, Basophils # (Auto) 0.1, Nucleated Red Blood Cells % (auto) 0.0, Anion Gap 7L, Glomerular Filtration Rate 26.8L, Calcium Level 8.5L, Magnesium Level 2.0, [id number]-Type Natriuretic Peptide 996H CBC/BMP Laboratory Tests 03/05/21 07:16 BHARATI BENITES MD Mar 05, 2021 10:50
--- NOTE | 2021-03-05 12:13 | IPN ---
PROGRESS NOTE DATE: 03/05/2021 SUBJECTIVE: Ирина is seen and examined this morning at the bedside. She reports her legs are tender, otherwise has no complaints, off and on required one liter via nasal cannula. Laboratory studies show stable renal function with a creatinine of 1.9 on the latest labs. She continues to work with Physical Therapy and had an echocardiogram done today, the report is pending. Patient has had adequate urine output and her BNP has downtrended. OBJECTIVE: VITAL SIGNS: Temperature is 99.1, pulse is 78, respiratory rate is 18, blood pressure is 165/77, saturating is 91 to 98% on 1 liter nasal cannula. INTAKE AND OUTPUT: Intake yesterday was 1560, urine output was 1600. There was also a bowel movement. Weight on the bed scale today is not recorded. GENERAL: Patient is seen sitting in the chair, awake, alert and oriented to person and place, calm, comfortable and in no distress. She was on room air at the time of my visit. HEENT: Extraocular muscles are intact. There is on conjunctival pallor. Sclera is clear. NECK: Supple. Jugular veins were not elevated while she was sitting upright. HEART: Heart sounds are regular, S1 and S2. No murmur. LUNGS: Good breath movement bilaterally. She is comfortable on room air. There are no crackles or rales. ABDOMEN: Soft and nontender. GENITOURINARY: There is no catheter. EXTREMITIES: The right hip incision site was not examined. There is 1+ edema on the right lower extremity and trace edema on the left lower extremity. NEUROLOGIC: She moves all four extremities in command, answers simple questions appropriately. She has short-term memory issues. PSYCHIATRIC: Calm and cooperative. LABORATORY DATA: Sodium is 137, potassium is 3.8, bicarbonate is 22, BUN 52, creatinine 1.9, magnesium is 2.0, hemoglobin is 9.1, platelets are 248,000. INPATIENT MEDICATIONS: Patient was ordered for extra dose of Lasix this evening 20 mg x1. Her other medications are unchanged as compared to yesterday. PROBLEMS: 1. CKD Stage IIIB, borderline Stage IV with mild acute kidney injury. Patient recently established in the Nephrology office with Dr. Cem Kwan, had her first visit a few weeks ago. Creatinine was 2.0 at that time with GFR of 24. Patient was discontinued off of Metformin by her primary care in the recent past. Renal function on this admission has ranged from creatinine of 1.6 to 2.0 and is fairly stable within her recent baseline range. Keep off BRITNEY, ARB or NSAIDs. I am ordering an additional small dose of Lasix 20 mg this afternoon. Her renal ultrasound was unremarkable. She has adequate urine output. There are no electrolyte issues. 2. Hypertension, blood pressures are well-controlled with amlodipine and low dose loop diuretic. 3. Localized edema. An echocardiogram was done this morning, the report is pending. She has asymmetric edema, more pronounced on the right lower extremity (status post ORIF). She will receive Lasix 20 mg b.i.d. today and her BNP is downtrending and her urine output is adequate. A diuretic will be adjusted as needed. 4. Anemia, iron stores were recently checked and satisfactory. Transferrin saturation was 25%. She received 2 units of PRBC on this admission. No need to start FIDEL therapy at this time. 5. Hypoxia, only requiring one liter via nasal cannula on and off. Chest x-ray did not show any pulmonary vascular congestion nor pleural effusion. BNP is downtrending. She has mild edema. She is on a low dose of loop diuretic. Diuretic will be adjusted as needed. 6. Protein calorie malnutrition. Albumin is 1.9. Patient is advised to increase protein in her diet. MTDD
[2021-03-05] MEDS: QUEtiapine FUMARATE 12.5 MG HALF-TAB PO SCH (17:51)
[2021-03-05 20:05] VITALS: O2SAT 96
[2021-03-05] MEDS: LATANOPROST 0.005% OPHTH SOLN 2.5 ML OU SCH (20:47)
[2021-03-05] MEDS: DONEPEZIL 5 MG TAB PO SCH (20:48)
[2021-03-05 22:00] VITALS: BP 137/63
[2021-03-06] MEDS: HEPARIN SOD (PORCINE) 5000UNITS/ML 1ML VIAL/SYRINGE SQ SCH ×3 (05:32→20:20)
[2021-03-06] MEDS: ACETAMINOPHEN TAB 650MG DOSE (2X325MG) PO SCH ×5 (05:33→23:06)
[2021-03-06 06:00] VITALS: BP 170/72
[2021-03-06 06:04] LABS: BASO % 0.5 % (0.0-1.0); EOS # 0.2 10^3/uL (0.0-0.5); EOS % 3.2 % (0.0-3.0); HEMATOCRIT 27.2 % (36.0-47.0); HEMATOCRIT 27.4 % (36.0-47.0); HEMOGLOBIN 9.1 g/dl (12.0-15.5); LYMPH # 1.2 10^3/uL (1.5-5.0); LYMPH % 16.5 % (24.0-44.0); MEAN CORPUSCULAR HEMOGLOBIN 30.5 pg (27.0-33.0); MEAN CORPUSCULAR HEMOGLOBIN 31.1 pg (27.0-33.0); MEAN CORPUSCULAR HGB CONC 32.8 g/dl (32.0-36.5); MEAN CORPUSCULAR HGB CONC 33.5 g/dl (32.0-36.5); MEAN CORPUSCULAR VOLUME 92.8 fl (80.0-96.0); MEAN CORPUSCULAR VOLUME 92.9 fl (80.0-96.0); MONO # 0.9 10^3/uL (0.0-0.8); MONO % 11.6 % (2.0-8.0); NEUTROPHILS % 67.4 % (36.0-66.0); PLATELET COUNT, AUTOMATED 270 10^3/uL (150-450); PLATELET COUNT, AUTOMATED 275 10^3/uL (150-450); RED BLOOD COUNT 2.93 10^6/uL (4.00-5.40); RED BLOOD COUNT 2.95 10^6/uL (4.00-5.40); WHITE BLOOD COUNT 7.5 10^3/uL (4.0-10.0); WHITE BLOOD COUNT 7.6 10^3/uL (4.0-10.0)
[2021-03-06 06:30] LABS: CALCIUM LEVEL 8.5 MG/DL (8.8-10.2); CREATININE FOR GFR 1.76 MG/DL (0.55-1.30); GLOMERULAR FILTRATION RATE 29.7 (>39); MAGNESIUM LEVEL 2.3 MG/DL (1.8-2.4); POTASSIUM SERUM 4.1 MEQ/L (3.5-5.1)
[2021-03-06] MEDS: LEVEMIR (INSULIN DETEMIR) 1 UNITS/0.01ML SC SCH ×2 (08:55→20:22)
[2021-03-06] MEDS: HumaLOG INSULIN (NovoLOG) PER UNIT SC SCH ×4 (08:55→20:21)
[2021-03-06] MEDS: SENNA 8.6 MG TAB (SENOKOT) PO PRN (08:56)
[2021-03-06] MEDS: ASPIRIN 81MG ENTERIC TABLET PO SCH ×2 (08:56→20:20)
[2021-03-06] MEDS: ASCORBIC ACID 500 MG TAB PO SCH (08:56)
[2021-03-06] MEDS: DOCUSATE SODIUM 100MG CAPSULE PO SCH ×2 (08:56→20:20)
[2021-03-06] MEDS: FUROSEMIDE 20 MG TAB PO SCH ×2 (08:56→16:07)
[2021-03-06] MEDS: FERROUS SULFATE 325MG TAB PO SCH (08:56)
[2021-03-06] MEDS: amLODIPine 5 MG TAB PO SCH (08:57)
[2021-03-06 14:00] VITALS: BP 139/66
--- NOTE | 2021-03-06 14:28 | IPN ---
PROGRESS NOTE DATE: 03/06/2021 SUBJECTIVE: Ирина is seen and examined this morning at the bedside. Her daughter is present. There are no acute overnight events reported. She has been intermittently confused. Blood pressure was elevated this morning at 6 a.m. but then improved on repeat check at 9 a.m. She has been tolerating oral intake and has had adequate urine output. Laboratory studies show stable renal function. OBJECTIVE: VITAL SIGNS: Temperature is 97.1, pulse 74, respiratory rate 19, blood pressure 136/67, saturating 94% on 1 liter nasal cannula. INTAKE AND OUTPUT: Intake yesterday was 960, urine output yesterday was 1725. Weight on the bed scale today is not recorded. GENERAL: Patient is seen sitting up in bed, elderly female. Head of the bed is elevated. She is pleasant and comfortable and in no distress. HEENT: Extraocular muscles are intact. Tongue is moist. NECK: Supple. Jugular veins are not elevated. HEART: Heart sounds are regular, S1, S2. No murmur. LUNGS: Symmetric air movement bilaterally. There are no crackles or rales. ABDOMEN: Soft and nontender. GENITOURINARY: There is no catheter. EXTREMITIES: There is trace edema of the lower extremities bilaterally. It is improved from prior. NEUROLOGIC: She answers simple questions appropriately. She has short term memory issues. She moves all four extremities on command. PSYCHIATRIC: Calm and cooperative. SKIN: Normal temperature and turgor. LABORATORY DATA: Today shows sodium 138, potassium 4.1, bicarbonate 24, BUN 47, creatinine 1.7 down from 2.0 a couple of days ago, magnesium 2.3, hemoglobin 9.0, platelets 275. INPATIENT MEDICATIONS: Reviewed by myself. She continues on Lasix 20 mg twice daily. I see no medicine changes the past 24 hours. PROBLEMS: 1. CKD stage 3b, borderline stage 4. The patient's renal function continues to improve. Peak creatinine on this admission was 2.0, down to 1.7 today. When she had her first visit in the nephrology office a few weeks ago her GFR was 24 at that time with creatinine 2.0. Renal ultrasound was negative for obstruction. The patient has adequate urine output and electrolytes are acceptable. Volume status has improved on current dose of Lasix 20 mg twice daily. Keep off BRITNEY, ARB or NSAIDs. I made no changes today. 2. Hypertension, blood pressures are well-controlled with Amlodipine and low dose loop diuretic. 3. Localized edema. Echocardiogram was done yesterday but report is still pending. BNP [id number] on admission and 900 yesterday. She is diuresing satisfactorily on Lasix 20 mg twice daily and her peripheral edema has improved. Continue current diuretic regimen. Follow up echocardiogram report. Diuretic will be adjusted as needed. 4. Anemia, iron stores were recently checked and satisfactory. Transferrin saturation was 25%. She received 2 units of packed red blood cells on this admission. Most recent hemoglobin is 9.0. No need of any EFA therapy at this time. She continues on Ferrous Sulfate tablet daily. 5. Hypoxia. The patient is on and off requiring 1 liter via nasal cannula. At home she takes Lasix 20 mg once daily. We have doubled that here. Volume-styles she appears fairly compensated. Echocardiogram report is pending. Diuretic will be adjusted as needed.
[2021-03-06] MEDS: QUEtiapine FUMARATE 12.5 MG HALF-TAB PO SCH (16:07)
[2021-03-06] MEDS ORDERED: oxyCODONE 5MG TAB PO PRN ×2 (16:30)
--- NOTE | 2021-03-06 16:32 | IPNPDOC ---
Text Note Date of Service The patient was seen on 03/06/21. NOTE Subjective: No new acute events overnight. Patient denies fever, chills, chest pain, palpitation, diarrhea or dysuria Objective: GENERAL APPEARANCE: NAD HEENT: no scleral icterus, no JVD, EOMI CARDIOVASCULAR: S1S2 LUNGS: Diminished lung sounds bilaterally ABDOMEN: soft & not tender w palpation MUSCULOSKELETAL: no cyanosis, no swelling, Dressing on R hip CDI. No underlying induration. No cyanosis, pulses intact 2+ dorsalis pedis and posterior tibial INTEGUMENT: no generalized pallor NEUROLOGICAL: cranial nerve function from 2-12 intact, follows commands, speech not dysarthric Assessment and plan: Patient is 80 years old female with past medical history of CKD3, dementia, NIDDM2, HTN. Admitted for R intertrochanteric hip fx. R hip pain 2/2 intertrochanteric femoral neck fx: POD#5. Continue pain management PT/OT Acute on chronic anemia Likely combination of quad compartment hematoma 2/2 femur fx, as well intraoper ative losses ~150cc S/p 2units of pRBC Hemoglobin stable. Continue iron supplementation Constipation Continue laxatives Type 2 diabetes Glucose level is not optimally controlled I will increase the dose of detemir to 10 units twice daily Continue insulin sliding scale Hypoxia Most likely secondary to atelectasis Resolved Hypertension Continue home meds Losartan on hold CKD stage 3b, borderline stage 4. Improved Renal ultrasound negative for hydronephrosis Nephrology team follows her Acute diastolic CHF BNP was elevated 1388 and trended down I's and O's Await echo report Continue Lasix p.o. twice daily Dementia with behaviors: c/w seroquel 12.5 mg daily. c/w donepezil. DVT ppx: heparin 5000 units SC TID. SCDs. TEDs Await ARU screen VS,Fishbone, I+O VS, Fishbone, I+O Laboratory Tests 03/06/21 05:24 Vital Signs Date Time Temp Pulse Resp B/P (MAP) Pulse Ox O2 Delivery O2 Flow Rate FiO2 03/06/21 09:00 1.0 03/06/21 08:57 72 136/67 03/06/21 06:00 97.1 19 94 Nasal Cannula I&O- Last 24 Hours up to 6 AM 03/06/21 06:00 Intake Total 1210 ml Output Total 625 ml Balance 585 ml DAVIDSON PRATT DO Mar 06, 2021 16:32
--- NOTE | 2021-03-06 17:44 | ECHO ---
ECHOCARDIOGRAM DATE OF PROCEDURE: 03/05/2021 Age: 80 years Gender: Female Height: 64 inches Weight: 154 pounds Body Surface Area: 1.76 m2. Inpatient: [address] [place] [address], room 5133 REFERRING PHYSICIAN: BHARATI BENITES MD INDICATION: Edema. MEASUREMENTS: 2D Measurements: RV 3.5 cm LV - 4.9 cm Septum 1.3 cm Posterior wall 1.3 cm Aortic Root 3.2 cm LA 4.1 cm LVEF 75% Doppler Measurements: AV 1.87 m/s LVOT 0.96 m/s LVOT diameter 2.1 cm MV-E 62, A 98, E/A ratio 0.6 Early mitral deceleration time 300 ms E prime medial 6.5, A prime medial 10, E prime lateral 7.9 Average E/E prime ratio 8.6/PCWP 12.6 mmHg PV 1.1 m/s Pulmonary artery acceleration time 109 ms PASP 38 mmHg IVC 1.4 cm COMMENTS: Normal sinus rhythm without intraventricular conduction disturbance. M-Mode and Two Dimensional Echocardiography was performed with pulse, continuous wave, color flow, and tissue Doppler studies. Mild concentric left ventricular hypertrophy with hyperkinetic wall motion. Mildly dilated left atrium with grade 1 LV diastolic dysfunction, but currently normal estimated mean left atrial pressure. Normal right heart chamber sizes and motion with Doppler evidence of mild pulmonary hypertension. Somewhat small inferior vena cava (IVC) diameter with avid respiratory collapse against an elevated central venous pressure. Normal aortic dimensions. Mild aortic valvular sclerosis without functional valvular abnormality. Mild degenerative changes of the mitral valvular apparatus without inflow tract obstruction and no more than trace insufficiency. Normal-appearing tricuspid valve with very mild insufficiency. No apparent intracardiac mass or pericardial effusion. MTDD
[2021-03-06] MEDS: DONEPEZIL 5 MG TAB PO SCH (20:20)
[2021-03-06] MEDS: LATANOPROST 0.005% OPHTH SOLN 2.5 ML OU SCH (20:21)
[2021-03-07 06:00] LABS: BASO % 0.5 % (0.0-1.0); EOS # 0.3 10^3/uL (0.0-0.5); HEMOGLOBIN 9.3 g/dl (12.0-15.5); LYMPH # 1.9 10^3/uL (1.5-5.0); MEAN CORPUSCULAR HEMOGLOBIN 31.3 pg (27.0-33.0); MEAN CORPUSCULAR HGB CONC 33.2 g/dl (32.0-36.5); MEAN CORPUSCULAR VOLUME 94.3 fl (80.0-96.0); MONO # 0.9 10^3/uL (0.0-0.8); MONO % 11.5 % (2.0-8.0); NEUTROPHILS # 4.6 10^3/uL (1.5-8.5); NEUTROPHILS % 59.2 % (36.0-66.0); PLATELET COUNT, AUTOMATED 287 10^3/uL (150-450); RED BLOOD COUNT 2.97 10^6/uL (4.00-5.40); WHITE BLOOD COUNT 7.8 10^3/uL (4.0-10.0)
[2021-03-07 06:25] LABS: CALCIUM LEVEL 8.1 MG/DL (8.8-10.2); CREATININE FOR GFR 1.79 MG/DL (0.55-1.30); GLOMERULAR FILTRATION RATE 29.1 (>39); MAGNESIUM LEVEL 2.1 MG/DL (1.8-2.4); POTASSIUM SERUM 3.9 MEQ/L (3.5-5.1)
[2021-03-07] MEDS: ACETAMINOPHEN TAB 650MG DOSE (2X325MG) PO SCH ×3 (06:25→17:15)
[2021-03-07] MEDS: HEPARIN SOD (PORCINE) 5000UNITS/ML 1ML VIAL/SYRINGE SQ SCH ×3 (06:25→21:22)
[2021-03-07 06:37] VITALS: BP 151/64
[2021-03-07] MEDS: HumaLOG INSULIN (NovoLOG) PER UNIT SC SCH ×4 (07:30→21:00)
[2021-03-07] MEDS: FERROUS SULFATE 325MG TAB PO SCH (09:04)
[2021-03-07] MEDS: ASCORBIC ACID 500 MG TAB PO SCH (09:04)
[2021-03-07] MEDS: LEVEMIR (INSULIN DETEMIR) 1 UNITS/0.01ML SC SCH ×2 (09:04→21:23)
[2021-03-07] MEDS: ASPIRIN 81MG ENTERIC TABLET PO SCH ×2 (09:04→21:22)
[2021-03-07] MEDS: DOCUSATE SODIUM 100MG CAPSULE PO SCH ×2 (09:05→21:22)
[2021-03-07] MEDS: FUROSEMIDE 20 MG TAB PO SCH ×2 (09:05→17:15)
[2021-03-07] MEDS: ATORVASTATIN 10 MG TAB PO SCH (09:15)
[2021-03-07] MEDS: MIRALAX *UNIT DOSE* 17GM PACKET PO SCH (12:26)
[2021-03-07] MEDS: traMADol 50 MG TAB PO PRN (12:29)
--- NOTE | 2021-03-07 12:44 | IPNPDOC ---
Text Note Date of Service The patient was seen on 03/07/21. NOTE Subjective: No new acute events overnight. Patient denies fever, chills, chest pain, palpitation, diarrhea or dysuria Objective: GENERAL APPEARANCE: NAD HEENT: no scleral icterus, no JVD, EOMI CARDIOVASCULAR: S1S2 LUNGS: Diminished lung sounds bilaterally ABDOMEN: soft & not tender w palpation MUSCULOSKELETAL: no cyanosis, no swelling, Dressing on R hip CDI. No underlying induration. No cyanosis, pulses intact 2+ dorsalis pedis and posterior tibial INTEGUMENT: no generalized pallor NEUROLOGICAL: cranial nerve function from 2-12 intact, follows commands, speech not dysarthric Assessment and plan: Patient is 80 years old female with past medical history of CKD3, dementia, NIDDM2, HTN. Admitted for R intertrochanteric hip fx. R hip pain 2/2 intertrochanteric femoral neck fx: POD#5. Continue pain management PT/OT Acute on chronic anemia Likely combination of quad compartment hematoma 2/2 femur fx, as well intraoper ative losses ~150cc S/p 2units of pRBC Hemoglobin stable. Continue iron supplementation Constipation Continue laxatives Added MiraLAX as needed Type 2 diabetes Glucose level under control Continue 10 units twice daily Continue insulin sliding scale Hypoxia Most likely secondary to atelectasis Resolved Hypertension Continue home meds Losartan on hold CKD stage 3b, borderline stage 4. Improved Renal ultrasound negative for hydronephrosis Nephrology team follows her Acute diastolic CHF BNP was elevated 1388 and trended down I's and O's echo report showed mild diastolic dysfunction Continue Lasix p.o. twice daily Dementia with behaviors: c/w seroquel 12.5 mg daily. c/w donepezil. DVT ppx: heparin 5000 units SC TID. SCDs. TEDs Await ARU screen VS,Fishbone, I+O VS, Fishbone, I+O Laboratory Tests 03/07/21 05:40 Vital Signs Date Time Temp Pulse Resp B/P (MAP) Pulse Ox O2 Delivery O2 Flow Rate FiO2 03/07/21 12:29 16 03/07/21 09:05 72 151/64 03/07/21 06:37 97.2 93 Nasal Cannula 1.0 I&O- Last 24 Hours up to 6 AM 03/07/21 06:00 Intake Total 1025 ml Output Total 1000 ml Balance 25 ml DAVIDSON PRATT DO Mar 07, 2021 12:44
--- NOTE | 2021-03-07 13:38 | IPN ---
NEPHROLOGY PROGRESS NOTE DATE: 03/07/2021 SUBJECTIVE: Ms. Gifford is seen and examined this morning at the bedside. She offers no complaints. Family member reports she has had some constipation. They request MiraLax. Her daughter wanted to review the echocardiogram and they discussed changing her iron supplementation. Her renal function remains stable on laboratory studies and her peripheral edema has resolved. PHYSICAL EXAMINATION: Vital signs: Temperature 97.2, pulse 72, respiratory rate 18, blood pressure 151/64, saturating 93-95% on 1 liter nasal cannula. Intake yesterday was 1275. Urine output yesterday was only recorded as 1 liter, but there was some incontinent void. General: Patient is seen lying in bed awake, alert, comfortable, in no distress. HEENT: Extraocular muscles are intact. Tongue is moist. Nasal cannula is in place. Heart sounds: Regular S1 and S2. There is no leg edema today. Lungs: Symmetric air movement without any crackles or rales. Abdomen: Soft and nontender. Extremities: Resolved leg edema. Neurologic: She answers simple questions appropriately. She moves her extremities on command. She has short term memory issues. Psychiatric: She is calm and cooperative. LABORATORY DATA: Sodium 139, potassium 3.9, bicarbonate 26, BUN 42, creatinine 1.7, magnesium 2.1. Hemoglobin 9.3, platelets 287. INPATIENT MEDICATIONS: Reviewed by myself. 1. I note primary team increased the amlodipine to 10 mg by mouth daily. 2. She continues on Lasix 20 mg twice daily. 3. Insulin was adjusted by the primary team. 4. Pain regimen was adjusted by the primary team. PROBLEMS/PLAN: 1. CKD stage 3B, borderline stage 4: Patient's renal function is stable at her usual baseline. When she had her first visit in the nephrology office a few weeks ago her creatinine was 2 and current creatinine is down to 1.7. Volume status has improved. She is taking double the dose of Lasix as compared to her home regimen. Renal ultrasound was negative for obstruction. Electrolytes are acceptable. Keep off BRITNEY, ARB or NSAIDs. 2. Diastolic congestive heart failure chronic: Echocardiogram report is reviewed. Her IVC diameter was not increased. She is currently on Lasix 20 mg twice daily. Her leg edema has resolved. I would continue her on the current diuretic regimen and volume status will be re-assessed and diuretic will be adjusted as needed. 3. Hypoxia: Patient is on and off requiring 1 liter via nasal cannula. She had some atelectasis on an earlier chest x-ray. Echocardiogram did not show signs of hypervolemia. She is on twice daily Lasix (at home takes Lasix 20 mg once daily) Volume styles appears compensated. She should continue using the incentive spirometer, etc. 4. Anemia: Iron stores were recently checked and satisfactory. No need for erythropoietin stimulating agent at this time. Hemoglobin is stable in the 9s. 5. Hypertension: Primary team has increased the dose of amlodipine. I would continue the patient on twice daily Lasix.
[2021-03-07] MEDS: QUEtiapine FUMARATE 12.5 MG HALF-TAB PO SCH (17:15)
[2021-03-07] MEDS: MAALOX 30 ML SUSP *UDC PO PRN (17:47)
[2021-03-07] MEDS: LATANOPROST 0.005% OPHTH SOLN 2.5 ML OU SCH (21:19)
[2021-03-07] MEDS: DONEPEZIL 5 MG TAB PO SCH (21:22)
[2021-03-08] MEDS: traMADol 50 MG TAB PO PRN ×2 (00:28→11:04)
[2021-03-08 06:00] VITALS: BP 159/73
[2021-03-08] MEDS: HEPARIN SOD (PORCINE) 5000UNITS/ML 1ML VIAL/SYRINGE SQ SCH ×3 (06:11→21:12)
[2021-03-08] MEDS: ACETAMINOPHEN TAB 650MG DOSE (2X325MG) PO SCH ×4 (06:12→17:47)
[2021-03-08] MEDS: HumaLOG INSULIN (NovoLOG) PER UNIT SC SCH ×4 (07:30→21:00)
[2021-03-08] MEDS: MIRALAX *UNIT DOSE* 17GM PACKET PO SCH (08:54)
[2021-03-08] MEDS: DOCUSATE SODIUM 100MG CAPSULE PO SCH ×2 (08:54→21:11)
[2021-03-08] MEDS: ASCORBIC ACID 500 MG TAB PO SCH (08:54)
[2021-03-08] MEDS: FUROSEMIDE 20 MG TAB PO SCH ×2 (08:54→17:42)
[2021-03-08] MEDS: ASPIRIN 81MG ENTERIC TABLET PO SCH ×2 (08:55→21:11)
[2021-03-08] MEDS: FERROUS SULFATE 325MG TAB PO SCH (08:55)
[2021-03-08] MEDS: LEVEMIR (INSULIN DETEMIR) 1 UNITS/0.01ML SC SCH ×2 (08:55→21:12)
[2021-03-08 09:27] LABS: BASO # 0.1 10^3/uL (0.0-0.2); BASO % 0.5 % (0.0-1.0); EOS # 0.3 10^3/uL (0.0-0.5); EOS % 3.3 % (0.0-3.0); HEMATOCRIT 27.4 % (36.0-47.0); HEMOGLOBIN 9.1 g/dl (12.0-15.5); LYMPH # 1.7 10^3/uL (1.5-5.0); LYMPH % 18.3 % (24.0-44.0); MEAN CORPUSCULAR HEMOGLOBIN 31.4 pg (27.0-33.0); MEAN CORPUSCULAR HGB CONC 33.2 g/dl (32.0-36.5); MEAN CORPUSCULAR VOLUME 94.5 fl (80.0-96.0); MONO # 0.9 10^3/uL (0.0-0.8); MONO % 10.1 % (2.0-8.0); NEUTROPHILS # 6.1 10^3/uL (1.5-8.5); NEUTROPHILS % 66.8 % (36.0-66.0); PLATELET COUNT, AUTOMATED 308 10^3/uL (150-450); WHITE BLOOD COUNT 9.2 10^3/uL (4.0-10.0)
[2021-03-08 09:57] LABS: CALCIUM LEVEL 8.2 MG/DL (8.8-10.2); CREATININE FOR GFR 1.91 MG/DL (0.55-1.30); MAGNESIUM LEVEL 2.1 MG/DL (1.8-2.4); POTASSIUM SERUM 3.9 MEQ/L (3.5-5.1)
[2021-03-08] MEDS: MAALOX 30 ML SUSP *UDC PO PRN (11:02)
[2021-03-08] MEDS ORDERED: PANTOPRAZOLE 40MG TAB (PROTONIX) PO ONE (11:55)
--- NOTE | 2021-03-08 12:05 | IPNPDOC ---
Text Note Date of Service The patient was seen on 03/08/21. NOTE Subjective: No new acute events overnight. Patient complains of nausea and she had a few episodes of vomiting associated with heartburn. Objective: GENERAL APPEARANCE: NAD HEENT: no scleral icterus, no JVD, EOMI CARDIOVASCULAR: S1S2 LUNGS: Diminished lung sounds bilaterally ABDOMEN: soft & not tender w palpation MUSCULOSKELETAL: no cyanosis, no swelling, Dressing on R hip CDI. No underlying induration. No cyanosis, pulses intact 2+ dorsalis pedis and posterior tibial INTEGUMENT: no generalized pallor NEUROLOGICAL: cranial nerve function from 2-12 intact, follows commands, speech not dysarthric Assessment and plan: Patient is 80 years old female with past medical history of CKD3, dementia, NIDDM2, HTN. Admitted for R intertrochanteric hip fx. R hip pain 2/2 intertrochanteric femoral neck fx: POD#6. Continue pain management PT/OT Acute on chronic anemia Likely combination of quad compartment hematoma 2/2 femur fx, as well intraoperative losses ~150cc S/p 2units of pRBC Hemoglobin stable. Continue iron supplementation Constipation Continue laxatives Added MiraLAX as needed Type 2 diabetes Glucose level under control Continue 10 units twice daily Continue insulin sliding scale Hypoxia Most likely secondary to atelectasis Resolved Hypertension Continue home meds Losartan on hold CKD stage 3b, borderline stage 4. Improved Renal ultrasound negative for hydronephrosis Nephrology team follows her Acute diastolic CHF BNP was elevated 1388 and trended down I's and O's echo report showed mild diastolic dysfunction Continue Lasix p.o. twice daily Patient currently euvolemic Dementia with behaviors: c/w seroquel 12.5 mg daily. c/w donepezil. DVT ppx: heparin 5000 units SC TID. SCDs. TEDs Patient will be transferred to [facility] status VS,Marcie, I+O VSMarcie, I+O Laboratory Tests 03/08/21 08:53 Vital Signs Date Time Temp Pulse Resp B/P (MAP) Pulse Ox O2 Delivery O2 Flow Rate FiO2 03/08/21 11:04 16 03/08/21 08:54 72 159/73 03/08/21 06:00 98.3 93 Nasal Cannula 1.0 I&O- Last 24 Hours up to 6 AM 03/08/21 06:00 Intake Total 1600 ml Balance 1600 ml DROZHZHIN,DAVIDSON DO Mar 08, 2021 12:05
[2021-03-08] MEDS: QUEtiapine FUMARATE 12.5 MG HALF-TAB PO SCH (17:42)
[2021-03-08] MEDS: ONDANSETRON 4 MG TAB PO PRN (17:47)
[2021-03-08] MEDS: PREPARATION H OINTMENT (HEMORRHOID) PR PRN (17:54)
[2021-03-08] MEDS: LATANOPROST 0.005% OPHTH SOLN 2.5 ML OU SCH (21:10)
[2021-03-08] MEDS: DONEPEZIL 5 MG TAB PO SCH (21:11)
[2021-03-09] MEDS: ACETAMINOPHEN TAB 650MG DOSE (2X325MG) PO SCH ×4 (00:34→17:40)
[2021-03-09 04:20] VITALS: O2SAT 94
[2021-03-09] MEDS: HEPARIN SOD (PORCINE) 5000UNITS/ML 1ML VIAL/SYRINGE SQ SCH ×3 (04:59→21:35)
[2021-03-09 05:22] VITALS: BP 148/61
[2021-03-09 06:20] LABS: BASO % 0.5 % (0.0-1.0); EOS # 0.3 10^3/uL (0.0-0.5); EOS % 3.2 % (0.0-3.0); HEMATOCRIT 27.2 % (36.0-47.0); HEMOGLOBIN 8.8 g/dl (12.0-15.5); LYMPH # 1.9 10^3/uL (1.5-5.0); LYMPH % 23.6 % (24.0-44.0); MEAN CORPUSCULAR HEMOGLOBIN 30.4 pg (27.0-33.0); MEAN CORPUSCULAR HGB CONC 32.4 g/dl (32.0-36.5); MEAN CORPUSCULAR VOLUME 94.1 fl (80.0-96.0); MONO # 0.8 10^3/uL (0.0-0.8); MONO % 9.4 % (2.0-8.0); NEUTROPHILS # 5.1 10^3/uL (1.5-8.5); NEUTROPHILS % 62.4 % (36.0-66.0); PLATELET COUNT, AUTOMATED 337 10^3/uL (150-450); RED BLOOD COUNT 2.89 10^6/uL (4.00-5.40); WHITE BLOOD COUNT 8.2 10^3/uL (4.0-10.0)
[2021-03-09 06:42] LABS: CALCIUM LEVEL 8.6 MG/DL (8.8-10.2); CREATININE FOR GFR 1.84 MG/DL (0.55-1.30); GLOMERULAR FILTRATION RATE 28.2 (>39); MAGNESIUM LEVEL 2.2 MG/DL (1.8-2.4)
[2021-03-09] MEDS: HumaLOG INSULIN (NovoLOG) PER UNIT SC SCH ×4 (07:30→21:00)
[2021-03-09] MEDS: FUROSEMIDE 20 MG TAB PO SCH ×2 (08:49→17:40)
[2021-03-09] MEDS: MIRALAX *UNIT DOSE* 17GM PACKET PO SCH (08:49)
[2021-03-09] MEDS: DOCUSATE SODIUM 100MG CAPSULE PO SCH ×2 (08:49→21:00)
[2021-03-09] MEDS: ASPIRIN 81MG ENTERIC TABLET PO SCH ×2 (08:50→21:33)
[2021-03-09] MEDS: PANTOPRAZOLE 40MG TAB (PROTONIX) PO SCH (08:50)
[2021-03-09] MEDS: ASCORBIC ACID 500 MG TAB PO SCH (08:50)
[2021-03-09] MEDS: ATORVASTATIN 10 MG TAB PO SCH (08:50)
[2021-03-09] MEDS: FERROUS SULFATE 325MG TAB PO SCH (08:50)
[2021-03-09] MEDS: LEVEMIR (INSULIN DETEMIR) 1 UNITS/0.01ML SC SCH ×2 (08:51→21:33)
[2021-03-09] MEDS: ONDANSETRON 4 MG TAB PO PRN (09:19)
[2021-03-09] MEDS: traMADol 50 MG TAB PO PRN ×2 (09:19→21:34)
[2021-03-09] MEDS: PREPARATION H OINTMENT (HEMORRHOID) PR PRN (09:20)
--- NOTE | 2021-03-09 13:37 | IPN ---
[facility]: 03/[facility]/2021 SUBJECTIVE: Ирина is seen and examined this morning at the bedside. She offers no complaints. She denies any shortness of breath. Family is waiting for rehabilitation placement. There is no reported nausea, vomiting or diarrhea. Laboratory studies show stable renal function. PHYSICAL EXAMINATION: VITAL SIGNS: Temperature 98.3, pulse 72, respiratory rate 16, blood pressure 148/61, saturating 95% on room air. INTAKE AND OUTPUT: Intake yesterday was 1.3 liters. Weight in the bed scale today was not recorded. GENERAL: Patient is seen lying in bed with the head of the bed elevated, elderly female, awake, alert, comfortable, cooperative with physical exam, and in no distress. HEENT: Extraocular muscles are intact. Tongue is moist. She is seen on room air. HEART SOUNDS: Regular. S1, S2. There is no murmur. There is no leg edema. LUNGS: Symmetric air movement. No crackle, rale or rhonchus. Clear to auscultation.. ABDOMEN: Soft and nontender. EXTREMITIES: No edema. No clubbing. NEUROLOGIC: She cooperates with physical exam. She answers simple questions appropriately. She has short-term memory issues. She is calm and cooperative. LABORATORY STUDIES: Sodium 139, potassium 4.0, bicarbonate 26, BUN 46, creatinine 1.8, magnesium 2.2. Hemoglobin 8.8, platelets 337. INPATIENT MEDICATIONS: Reviewed by myself and I note amlodipine was increased to 10 mg once daily. She was also started on Colace 200 mg by mouth twice a day. Pain medication was adjusted by the primary team. She was started on Protonix 40 mg by mouth daily. The remainder of medications are unchanged as compared to yesterday. PROBLEMS: 1. Chronic kidney disease (CKD) stage IIIB, borderline stage IV. Renal function is stable at the patient's usual baseline. Creatinine on the latest labs is 1.8. When she was seen at the nephrology office for an initial visit several weeks ago, creatinine was 2.0. She is doing well on the current diuretic regimen. She should stay off of angiotensin converting enzyme (BRITNEY) inhibitors, angiotensin receptor mercy (ARB) and nonsteroidal antiinflammatories (NSAIDs). Renal ultrasound was negative for obstruction. 2. Diastolic congestive heart failure. Continue Lasix 20 mg twice daily. Potassium and magnesium levels are stable and volume status is compensated. 3. Anemia. Iron stores were recently checked and satisfactory. Latest hemoglobin is 8.8. No need for erythropoiesis stimulating agents (FIDEL) at this time. DISPOSITION: Nephrology is signing off. Please re-consult at needed.
[2021-03-09] MEDS: QUEtiapine FUMARATE 12.5 MG HALF-TAB PO SCH (17:40)
[2021-03-09] MEDS: LATANOPROST 0.005% OPHTH SOLN 2.5 ML OU SCH (21:33)
[2021-03-09] MEDS: DONEPEZIL 5 MG TAB PO SCH (21:34)
[2021-03-10 06:00] VITALS: BP 149/65
[2021-03-10] MEDS: HEPARIN SOD (PORCINE) 5000UNITS/ML 1ML VIAL/SYRINGE SQ SCH ×3 (06:07→21:10)
[2021-03-10] MEDS: ACETAMINOPHEN TAB 650MG DOSE (2X325MG) PO SCH ×5 (06:07→23:19)
[2021-03-10] MEDS: HumaLOG INSULIN (NovoLOG) PER UNIT SC SCH ×4 (07:30→21:00)
[2021-03-10] MEDS: MIRALAX *UNIT DOSE* 17GM PACKET PO SCH (08:30)
[2021-03-10] MEDS: DOCUSATE SODIUM 100MG CAPSULE PO SCH ×2 (08:30→21:00)
[2021-03-10] MEDS: FUROSEMIDE 20 MG TAB PO SCH ×2 (08:36→17:04)
[2021-03-10] MEDS: ASCORBIC ACID 500 MG TAB PO SCH (08:38)
[2021-03-10] MEDS: ASPIRIN 81MG ENTERIC TABLET PO SCH ×2 (08:38→21:10)
[2021-03-10] MEDS: PANTOPRAZOLE 40MG TAB (PROTONIX) PO SCH (08:39)
[2021-03-10] MEDS: LEVEMIR (INSULIN DETEMIR) 1 UNITS/0.01ML SC SCH ×2 (08:39→21:09)
[2021-03-10] MEDS: FERROUS SULFATE 325MG TAB PO SCH (08:39)
[2021-03-10] MEDS: QUEtiapine FUMARATE 12.5 MG HALF-TAB PO SCH (17:03)
[2021-03-10] MEDS: LATANOPROST 0.005% OPHTH SOLN 2.5 ML OU SCH (21:09)
[2021-03-10] MEDS: DONEPEZIL 5 MG TAB PO SCH (21:10)
[2021-03-11] MEDS: HEPARIN SOD (PORCINE) 5000UNITS/ML 1ML VIAL/SYRINGE SQ SCH ×3 (05:06→19:45)
[2021-03-11] MEDS: ACETAMINOPHEN TAB 650MG DOSE (2X325MG) PO SCH ×3 (05:06→17:32)
[2021-03-11 06:00] VITALS: BP 167/74
[2021-03-11] MEDS: HumaLOG INSULIN (NovoLOG) PER UNIT SC SCH ×4 (07:17→19:45)
--- NOTE | 2021-03-11 08:04 | REP ---
INDICATION: sob COMPARISON: 03/01/2021 TECHNIQUE: PA and lateral. FINDINGS: The mediastinum and cardiac silhouette are normal. The lung brandt are clear and without acute consolidation, effusion, or pneumothorax. The skeletal structures are intact and normal. IMPRESSION: No acute cardiopulmonary process. If the patient remains symptomatic consider chest CT for further investigation. <Electronically signed by Ho Kimbrough > 03/11/21 0800
[2021-03-11] MEDS: MIRALAX *UNIT DOSE* 17GM PACKET PO SCH (08:36)
[2021-03-11] MEDS: DOCUSATE SODIUM 100MG CAPSULE PO SCH ×2 (08:36→21:00)
[2021-03-11] MEDS: ASCORBIC ACID 500 MG TAB PO SCH (09:03)
[2021-03-11] MEDS: ASPIRIN 81MG ENTERIC TABLET PO SCH ×2 (09:03→19:44)
[2021-03-11] MEDS: PANTOPRAZOLE 40MG TAB (PROTONIX) PO SCH (09:03)
[2021-03-11] MEDS: FERROUS SULFATE 325MG TAB PO SCH (09:03)
[2021-03-11] MEDS: FUROSEMIDE 20 MG TAB PO SCH ×2 (09:04→17:32)
[2021-03-11] MEDS: LEVEMIR (INSULIN DETEMIR) 1 UNITS/0.01ML SC SCH ×2 (09:04→19:45)
[2021-03-11] MEDS: QUEtiapine FUMARATE 12.5 MG HALF-TAB PO SCH (17:32)
[2021-03-11] MEDS: DONEPEZIL 5 MG TAB PO SCH (19:44)
[2021-03-11] MEDS: traMADol 50 MG TAB PO PRN (19:44)
[2021-03-11] MEDS: LATANOPROST 0.005% OPHTH SOLN 2.5 ML OU SCH (19:45)
[2021-03-12] MEDS: ACETAMINOPHEN TAB 650MG DOSE (2X325MG) PO SCH ×3 (05:46→12:22)
[2021-03-12] MEDS: HEPARIN SOD (PORCINE) 5000UNITS/ML 1ML VIAL/SYRINGE SQ SCH (05:47)
[2021-03-12 06:00] VITALS: BP 163/68
[2021-03-12] MEDS: HumaLOG INSULIN (NovoLOG) PER UNIT SC SCH ×2 (07:30→11:56)
[2021-03-12] MEDS: FERROUS SULFATE 325MG TAB PO SCH (08:32)
[2021-03-12] MEDS: LEVEMIR (INSULIN DETEMIR) 1 UNITS/0.01ML SC SCH (08:32)
[2021-03-12 08:33] VITALS: BP 163/68
[2021-03-12] MEDS: PANTOPRAZOLE 40MG TAB (PROTONIX) PO SCH (08:33)
[2021-03-12] MEDS: ASCORBIC ACID 500 MG TAB PO SCH (08:33)
[2021-03-12] MEDS: FUROSEMIDE 20 MG TAB PO SCH (08:33)
[2021-03-12] MEDS: ASPIRIN 81MG ENTERIC TABLET PO SCH (08:33)
[2021-03-12] MEDS: DOCUSATE SODIUM 100MG CAPSULE PO SCH (08:33)
[2021-03-12] MEDS: ATORVASTATIN 10 MG TAB PO SCH (08:33)
[2021-03-12] MEDS: MIRALAX *UNIT DOSE* 17GM PACKET PO SCH (08:34)
[2021-03-12 09:34] LABS: HEMATOCRIT 27.5 % (36.0-47.0); HEMOGLOBIN 9.1 g/dl (12.0-15.5); MEAN CORPUSCULAR HEMOGLOBIN 31.2 pg (27.0-33.0); MEAN CORPUSCULAR HGB CONC 33.1 g/dl (32.0-36.5); MEAN CORPUSCULAR VOLUME 94.2 fl (80.0-96.0); PLATELET COUNT, AUTOMATED 386 10^3/uL (150-450); RED BLOOD COUNT 2.92 10^6/uL (4.00-5.40); WHITE BLOOD COUNT 11.3 10^3/uL (4.0-10.0)
--- NOTE | 2021-03-12 09:39 | IPNPDOC ---
Text Note Date of Service The patient was seen on 03/12/21. NOTE Postop day 11 for right hip open reduction internal fixation The patient is doing well, reports minimal pain. Patient is awaiting rehab placement. She denies any chest pain or shortness of breath. Right hip dressings clean dry and intact. The patient is grossly NVI to light touch to right foot and ankle palpable DP and PT pulses. Moving toes, foot and do ankle pumps. The patient is awaiting placement with rehab services. Plan for F/U 6 weeks in office. VS,Fishbone, I+O VS, Fishbone, I+O Vital Signs Date Time Temp Pulse Resp B/P (MAP) Pulse Ox O2 Delivery O2 Flow Rate FiO2 03/12/21 08:33 78 163/68 03/12/21 06:00 97.6 18 95 Room Air 03/09/21 05:22 1.0 I&O- Last 24 Hours up to 6 AM 03/12/21 05:59 Intake Total 2000 ml Output Total 0 ml Balance 2000 ml PAVAN WALKER Mar 12, 2021 09:30
[2021-03-12 09:56] LABS: CALCIUM LEVEL 8.7 MG/DL (8.8-10.2); CREATININE FOR GFR 1.83 MG/DL (0.55-1.30); GLOMERULAR FILTRATION RATE 28.3 (>39); POTASSIUM SERUM 4.2 MEQ/L (3.5-5.1)
[2021-03-12] MEDS ORDERED: ASPI-551 PO (10:57)
[2021-03-12] MEDS ORDERED: PANT40TA29 PO (10:57)
[2021-03-12] MEDS ORDERED: MIRA1POW3 PO (10:57)
[2021-03-12] MEDS ORDERED: FERR1TAB8 PO (10:57)
[2021-03-12] MEDS ORDERED: TRAM50TA2 PO (10:57)
[2021-03-12] MEDS ORDERED: FURO20TA2 PO (10:57)
[2021-03-12] MEDS ORDERED: AMLO1TAB25 PO (10:57)
[2021-03-12] MEDS ORDERED: ONDA-83 PO (10:57)
[2021-03-12] MEDS ORDERED: COLA100C5 PO (10:57)
--- NOTE | 2021-03-12 13:02 | DS.PDOC ---
Discharge Summary General Date of Admission Feb 28, 2021 at 08:40 Date of Discharge 03/12/21 Discharge Summary PROCEDURES PERFORMED DURING STAY: ORIF ADMITTING DIAGNOSES: R hip pain 2/2 intertrochanteric femoral neck fx Acute on chronic anemia Constipation Type 2 diabetes Hypoxia Hypertension Acute diastolic CHF CKD stage 3b, borderline stage 4. Dementia with behaviors DISCHARGE DIAGNOSES: R hip pain 2/2 intertrochanteric femoral neck fx Acute on chronic anemia Constipation Type 2 diabetes Hypoxia Hypertension Acute diastolic CHF CKD stage 3b, borderline stage 4. Dementia with behaviors COMPLICATIONS/CHIEF COMPLAINT: Fall/Hip Pain. HISTORY OF PRESENT ILLNESS: Mrs. Arvizu is a 80 yo F, resident of [facility], with a PMHx of CKD3, dementia, NIDDM2, HTN. She is accompanied by her daughter and healthcare proxy at bedside. Patient suffered a fall in the early hours on 02/28/21, likely due to mechanical tripping over a dresser in the dark. She landed on her R hip. XR imaging in the ER showed an acute comminuted angulated intertrochanteric fracture of the R proximal femur. Patient denies any chest pain, SOB, palpitations, n/v/d at the time of my exam. She also denies lightheadedness, palpitations, blurred vision or chest pain at the time of her fall. Dr. Brown of orthopedics service was consulted from ER. There is possibility for ORIF depending on OR availability. Patient will be kept NPO. Pre-op EKG and CXR were obtained, showing no acute abnormalities. Lab review showing WBC 12.4. Cr 2.07 (baseline ~1.6). Patient will be admitted to hospitalist service HOSPITAL COURSE: During the hospital stay the following issue addressed Patient received ORIF today day 11 post surgery. After surgery patient develop ed acute kidney injury treated with IV fluid kidney function currently stable. Also patient received blood transfusion after surgery. Her anemia was most likely combination of quad compartment hematoma 2/2 femur fx, as well intraoperative losses ~150cc. Also patient was found to have acute diastolic CHF, BNP was elevated 1388 and trended down. Patient received course of diuretics. We continue treatment for dementia and agitation with Seroquel and donepezil. Today The patient is doing well, reports minimal pain. Right hip dressings clean dry and intact. The patient is grossly NVI to light touch to right foot and ankle palpable DP and PT pulses. Moving toes, foot and do ankle pumps DISCHARGE MEDICATIONS: Please see below. ALLERGIES: Please see below. PHYSICAL EXAMINATION ON DISCHARGE: VITAL SIGNS: Please see below. GENERAL APPEARANCE: NAD HEENT: no scleral icterus, no JVD, EOMI CARDIOVASCULAR: S1S2 LUNGS: Diminished lung sounds bilaterally ABDOMEN: soft & not tender w palpation MUSCULOSKELETAL: no cyanosis, no swelling, Dressing on R hip CDI. No underlying induration. No cyanosis, pulses intact 2+ dorsalis pedis and posterior tibial INTEGUMENT: no generalized pallor NEUROLOGICAL: cranial nerve function from 2-12 intact, follows commands, speech not dysarthric LABORATORY DATA: Please see below. PROGNOSIS: Fair ACTIVITY: [As tolerated]. DIET: Cardia DISPOSITION: Home Health Service. DISCHARGE INSTRUCTIONS: Follow-up with orthopedic team and PCP DISCHARGE CONDITION: [Stable]. TIME SPENT ON DISCHARGE: 40minutes. Vital Signs/I&Os Vital Signs Date Time Temp Pulse Resp B/P (MAP) Pulse Ox O2 Delivery O2 Flow Rate FiO2 03/12/21 08:33 78 163/68 03/12/21 06:00 97.6 18 95 Room Air 03/09/21 05:22 1.0 I&O- Last 24 Hours up to 6 AM 03/12/21 06:00 Intake Total 2030 ml Output Total 0 ml Balance 2030 ml Laboratory Data Labs 24H Laboratory Tests 2 03/11/21 16:41: Bedside Glucose (Misc Panel) 158H 03/11/21 19:45: Bedside Glucose (Misc Panel) 192H 03/12/21 06:39: Bedside Glucose (Misc Panel) 105 03/12/21 09:16: Coronavirus (COVID-19)(PCR) NEGATIVE 03/12/21 09:17: Nucleated Red Blood Cells % (auto) 0.0, Anion Gap 9, Glomerular Filtration Rate 28.3L, Calcium Level 8.7L 03/12/21 11:48: Bedside Glucose (Misc Panel) 156H CBC/BMP Laboratory Tests 03/12/21 09:17 FSBS Laboratory Tests Test 03/11/21 16:41 03/11/21 19:45 03/12/21 06:39 03/12/21 11:48 Range/Units Bedside Glucose (Misc Panel) 158 192 105 156 83-110 MG/DL Microbiology Microbiology 03/06/21 Respiratory Virus Panel (PCR) ([facility]) - Final, Complete Discharge Medications Scheduled Amlodipine Besylate (Amlodipine Besylate) 10 Mg Tablet, 10 MG PO DAILY Aspirin (Aspirin EC) 81 Mg Tablet.dr, 81 MG PO BID Atorvastatin Calcium (Atorvastatin Calcium) 10 Mg Tablet, 10 MG PO 3XW, (Reported) MON,WED,FRI Cholecalciferol (Vitamin D3) (Vitamin D3) 50 Mcg Tablet, 50 MCG PO DAILY, (Reported) Docusate Sodium (Colace) 100 Mg Capsule, 200 MG PO BID Donepezil HCl (Donepezil HCl) 10 Mg Tablet, 10 MG PO QHS, (Reported) Ferrous Sulfate (Ferrous Sulfate) 325 Mg Tablet, 325 MG PO DAILY Furosemide (Furosemide) 20 Mg Tablet, 20 MG PO BID@0900,1700 Glimepiride (Glimepiride) 2 Mg Tablet, 2 MG PO DAILY, (Reported) Latanoprost (Xalatan) 0.005% 2.5ML Drops, 1 DROP OU QHS, (Reported) Melatonin (Melatonin) 5 Mg Tablet, 5 MG PO QHS, (Reported) Lawrence-3 Fatty Acids/Fish Oil (Fish Oil 1,000 mg Capsule) 1 Each Capsule, 1 CAP PO DAILY, (Reported) Pantoprazole Sodium (Pantoprazole Sodium) 40 Mg Tablet.dr, 1 TAB PO DAILY Quetiapine Fumarate (Quetiapine Fumarate) 25 Mg Tablet, 12.5 MG PO QPM, (Reported) Sitagliptin (Januvia) 50 Mg Tablet, 50 MG PO DAILY, (Reported) Vitamin B Complex (Vitamin B Complex) 1 Each Tablet, 1 TAB PO DAILY, (Reported) Scheduled PRN Acetaminophen (Tylenol Extra Strength) 500 Mg Tablet, 1,000 MG PO Q6H PRN for PAIN LEVEL 1-4, (Reported) Loperamide HCl (Loperamide) 2 Mg Capsule, 2 MG PO TID PRN for AFTER EACH LOOSE STOOL, (Reported) Ondansetron HCl (Ondansetron HCl) 4 Mg Tablet, 4 MG PO Q8HP PRN for NAUSEA OR VOMITING Polyethylene Glycol 3350 (Miralax) 17 Gm Powd.pack, 1 PKT PO DAILY PRN for CONSTIPATION Tramadol HCl (Tramadol HCl) 50 Mg Tablet, 50 MG PO Q4HP PRN for MILD PAIN (PS 1- 4) Allergies Coded Allergies: No Known Allergies (Verified , 05/17/09) DAVIDSON PRATT DO Mar 12, 2021 13:02
== END 2021-03-12 12:30 | DRG 480 ==
LOC: M ED 05:59 → M ED INP 08:40 → ENRESERV 10:42 → M MS5PR 11:50
PROVIDERS: ADMIT Family Medicine; ATTEND Internal Medicine
PROC: 0QS606Z Reposition Right Upper Femur with Intramedullary Internal Fixation Device, Open Approach (ICD-10-PCS; principal; 2021-03-01 08:28)
PROC: 30233N1 Transfusion of Nonautologous Red Blood Cells into Peripheral Vein, Percutaneous Approach (ICD-10-PCS; 2021-03-02)
DX: S72.141A Displaced intertrochanteric fracture of right femur, initial encounter for closed fracture (principal); I50.33 Acute on chronic diastolic (congestive) heart failure; F03.91 Unspecified dementia, unspecified severity, with behavioral disturbance; J98.11 Atelectasis; N18.4 Chronic kidney disease, stage 4 (severe); D62 Acute posthemorrhagic anemia; N17.9 Acute kidney failure, unspecified; E46 Unspecified protein-calorie malnutrition; I13.0 Hypertensive heart and chronic kidney disease with heart failure and stage 1 through stage 4 chronic kidney disease, or unspecified chronic kidney disease; W18.09XA Striking against other object with subsequent fall, initial encounter; K59.00 Constipation, unspecified; Y92.092 Bedroom in other non-institutional residence as the place of occurrence of the external cause; Y93.89 Activity, other specified; Y99.8 Other external cause status; H54.8 Legal blindness, as defined in USA; E11.22 Type 2 diabetes mellitus with diabetic chronic kidney disease; Z98.41 Cataract extraction status, right eye; Z98.42 Cataract extraction status, left eye; Z20.822 Contact with and (suspected) exposure to COVID-19; Z79.82 Long term (current) use of aspirin; Z79.899 Other long term (current) drug therapy; Z79.84 Long term (current) use of oral hypoglycemic drugs; R09.02 Hypoxemia

== ENCOUNTER → 2021-03-23 | Outpatient (CLI) | payer MEDICARE ==
[~2021-03-23] MED LIST changes: +ACET-897 PO; +AMLO1TAB25 PO; +ASPI-551 PO; +ATOR1TAB19 PO; +COLA100C5 PO; +D-20TAB PO; +DONE10TA90 PO; +FERR1TAB8 PO; +FURO20TA2 PO; +GLIM2TAB4 PO; +LOPE1CAP5 PO; +MELA5TAB7 PO; +MIRA1POW3 PO; +ONDA-83 PO; +PANT40TA29 PO; +QUET1TAB17 PO; +RA B1TAB2 PO; +TRAM50TA2 PO; +XALA0.007 OU
--- NOTE | 2021-03-23 12:03 | REP ---
INDICATION: ORTHOPEDIC AFTERCARE. COMPARISON: 03/01/2021 TECHNIQUE: AP and frog-lateral views FINDINGS: Previously described ORIF with an intramedullary femoral ricky and femoral neck lag screw status quo. There has been no significant change compared to the prior exam. IMPRESSION: No evidence of significant change. <Electronically signed by Genaro Josue > 03/23/21 1200
== END ==
LOC: M SOG 10:22
PROVIDERS: ATTEND Orthopaedic Surgery Adult Reconstructive Orthopaedic Surgery
DX: Z48.89 Encounter for other specified surgical aftercare (principal)

== ENCOUNTER → 2021-04-25 | Outpatient (CLI) | payer MEDICARE ==
--- NOTE | 2021-04-26 03:31 | REP ---
INDICATION: RT FEMUR FX. COMPARISON: 03/23/2021 TECHNIQUE: AP and frog-lateral views of the right femur FINDINGS: Patient is again noted to be status post satisfactory stable open reduction and fixation for proximal intertrochanteric femur fracture. Callus formation surrounds the fracture site consistent with healing. Moderate degenerative changes at the hip along with advanced degenerative changes at the knee noted. IMPRESSION: Stable fixation for proximal femur fracture. <Electronically signed by Ho Kimbrough > 04/26/21 0328
== END ==
LOC: M SOG 13:12
PROVIDERS: ATTEND Orthopaedic Surgery Adult Reconstructive Orthopaedic Surgery
DX: S72.001D Fracture of unspecified part of neck of right femur, subsequent encounter for closed fracture with routine healing (principal)

== ENCOUNTER → 2021-07-12 | Outpatient (REF) | payer MEDICARE ==
[2021-07-12 09:09] LABS: HEMATOCRIT 27.6 % (36.0-47.0); HEMOGLOBIN 8.8 g/dl (12.0-15.5); MEAN CORPUSCULAR HEMOGLOBIN 31.2 pg (27.0-33.0); MEAN CORPUSCULAR HGB CONC 31.9 g/dl (32.0-36.5); MEAN CORPUSCULAR VOLUME 97.9 fl (80.0-96.0); PLATELET COUNT, AUTOMATED 419 10^3/uL (150-450); RED BLOOD COUNT 2.82 10^6/uL (4.00-5.40); WHITE BLOOD COUNT 9.7 10^3/uL (4.0-10.0)
[2021-07-12 09:35] LABS: HEMOGLOBIN A1c 8.8 %
[2021-07-12 09:46] LABS: ALBUMIN 2.6 GM/DL (3.2-5.2); BILIRUBIN,TOTAL 0.3 MG/DL (0.2-1.0); CALCIUM LEVEL 8.6 MG/DL (8.8-10.2); CREATININE FOR GFR 2.16 MG/DL (0.55-1.30); GLOMERULAR FILTRATION RATE 23.4 (>39); PERCENT SATURATION 21.1 % (13.2-45.0); POTASSIUM SERUM 5.6 MEQ/L (3.5-5.1); TOTAL PROTEIN 6.3 GM/DL (6.4-8.2)
== END ==
LOC: SKLAB6 07:00
PROVIDERS: ATTEND Neuromusculoskeletal Medicine & OMM
DX: I50.9 Heart failure, unspecified (principal); E87.5 Hyperkalemia; Z79.899 Other long term (current) drug therapy

== ENCOUNTER → 2021-07-13 | Outpatient (REF) ==
[2021-07-13 12:36] LABS: CALCIUM LEVEL 8.9 MG/DL (8.8-10.2); CREATININE FOR GFR 2.03 MG/DL (0.55-1.30); GLOMERULAR FILTRATION RATE 25.2 (>39); POTASSIUM SERUM 5.8 MEQ/L (3.5-5.1)
== END ==
LOC: SKLAB5 11:05
PROVIDERS: ATTEND Neuromusculoskeletal Medicine & OMM
DX: I50.9 Heart failure, unspecified (principal)

== ENCOUNTER → 2021-07-14 | Outpatient (REF) ==
[2021-07-14 16:59] LABS: CALCIUM LEVEL 8.9 MG/DL (8.8-10.2); CREATININE FOR GFR 1.97 MG/DL (0.55-1.30); POTASSIUM SERUM 5.4 MEQ/L (3.5-5.1)
== END ==
LOC: SKLAB6 14:18
PROVIDERS: ATTEND Neuromusculoskeletal Medicine & OMM
DX: E87.5 Hyperkalemia (principal); N18.9 Chronic kidney disease, unspecified

== ENCOUNTER → 2021-07-15 | Outpatient (REF) ==
[2021-07-15 09:38] LABS: CALCIUM LEVEL 8.9 MG/DL (8.8-10.2); CREATININE FOR GFR 1.72 MG/DL (0.55-1.30); GLOMERULAR FILTRATION RATE 30.5 (>39)
== END ==
LOC: SKLAB6 08:03
PROVIDERS: ATTEND Neuromusculoskeletal Medicine & OMM
DX: E87.5 Hyperkalemia (principal); N18.9 Chronic kidney disease, unspecified

== ENCOUNTER → 2021-07-19 | Outpatient (REF) | payer MEDICARE | LOC: SKLAB6 15:15 | PROVIDERS: ATTEND Neuromusculoskeletal Medicine & OMM | DX: Z53.9 Procedure and treatment not carried out, unspecified reason (principal) ==

== ENCOUNTER → 2021-07-19 | Outpatient (REF) | payer MEDICARE ==
[2021-07-19 14:09] LABS: CALCIUM LEVEL 9.4 MG/DL (8.8-10.2); CREATININE FOR GFR 1.84 MG/DL (0.55-1.30); GLOMERULAR FILTRATION RATE 28.2 (>39); POTASSIUM SERUM 5.6 MEQ/L (3.5-5.1)
== END ==
LOC: SKLAB6 07:00
PROVIDERS: ATTEND Neuromusculoskeletal Medicine & OMM
DX: N18.9 Chronic kidney disease, unspecified (principal)

== ENCOUNTER → 2021-07-20 | Outpatient (REF) | payer MEDICARE | LOC: SKLAB6 08:14 | PROVIDERS: ATTEND Neuromusculoskeletal Medicine & OMM | DX: K62.5 Hemorrhage of anus and rectum (principal) ==

== ENCOUNTER → 2021-07-21 | Outpatient (REF) | payer MEDICARE ==
[2021-07-21 07:13] LABS: CALCIUM LEVEL 8.5 MG/DL (8.8-10.2); CREATININE FOR GFR 1.82 MG/DL (0.55-1.30); GLOMERULAR FILTRATION RATE 28.5 (>39); POTASSIUM SERUM 4.9 MEQ/L (3.5-5.1)
[2021-07-21 14:12] LABS: AMORPHOUS SEDIMENT SMALL (NEGATIVE); APPEARANCE, URINE CLOUDY (CLEAR); BACTERIA, URINE AUTO 3+ (NEGATIVE); BILIRUBIN, URINE AUTO NEGATIVE (NEGATIVE); BLOOD, URINE BLOOD NEGATIVE (NEGATIVE); COLOR, URINE YELLOW (YELLOW); GLUCOSE, URINE (UA) AUTO NEGATIVE (NEGATIVE); KETONE, URINE AUTO NEGATIVE (NEGATIVE); LEUKOCYTE ESTERASE, URINE AUTO 3+ (NEGATIVE); MUCUS, URINE SMALL (NEGATIVE); NITRITE, URINE AUTO POSITIVE (NEGATIVE); PROTEIN, URINE AUTO 2+ mg/dL (NEGATIVE); RBC, URINE AUTO 11 /HPF (0-3); SPECIFIC GRAVITY URINE AUTO 1.009 (1.002-1.035); SQUAMOUS EPITHELIAL CELL UR AU 7 /HPF (0-6); UROBILINOGEN, URINE AUTO 0.2 mg/dL (0.0-2.0); WBC, URINE AUTO TNTC /HPF (0-3)
== END ==
LOC: SKLAB6 07:00
PROVIDERS: ATTEND Neuromusculoskeletal Medicine & OMM
DX: N18.9 Chronic kidney disease, unspecified (principal); E87.6 Hypokalemia

== ENCOUNTER → 2021-08-01 | Outpatient (REF) | payer MEDICARE ==
[2021-08-01 13:54] LABS: CALCIUM LEVEL 8.9 MG/DL (8.8-10.2); CREATININE FOR GFR 2.4 MG/DL (0.55-1.30); GLOMERULAR FILTRATION RATE 20.7 (>39); POTASSIUM SERUM 5.4 MEQ/L (3.5-5.1)
== END ==
LOC: SKLAB6 11:00
PROVIDERS: ATTEND Neuromusculoskeletal Medicine & OMM
DX: R11.10 Vomiting, unspecified (principal)

== ENCOUNTER → 2021-08-14 | Outpatient (REF) | payer MEDICARE, OTHER ==
[2021-08-14 12:56] LABS: HEMATOCRIT 28.1 % (36.0-47.0); HEMOGLOBIN 9.3 g/dl (12.0-15.5); MEAN CORPUSCULAR HEMOGLOBIN 31.8 pg (27.0-33.0); MEAN CORPUSCULAR HGB CONC 33.1 g/dl (32.0-36.5); MEAN CORPUSCULAR VOLUME 96.2 fl (80.0-96.0); PLATELET COUNT, AUTOMATED 365 10^3/uL (150-450); RED BLOOD COUNT 2.92 10^6/uL (4.00-5.40); WHITE BLOOD COUNT 10.5 10^3/uL (4.0-10.0)
[2021-08-14 13:13] LABS: ALBUMIN 2.7 GM/DL (3.2-5.2); CREATININE FOR GFR 2.65 MG/DL (0.55-1.30); GLOMERULAR FILTRATION RATE 18.5 (>39); PHOSPHORUS LEVEL 4.5 MG/DL (2.5-4.9); POTASSIUM SERUM 5.2 MEQ/L (3.5-5.1)
[2021-08-14 20:59] LABS: APPEARANCE, URINE CLOUDY (CLEAR); BACTERIA, URINE AUTO 3+ (NEGATIVE); BILIRUBIN, URINE AUTO NEGATIVE (NEGATIVE); BLOOD, URINE BLOOD NEGATIVE (NEGATIVE); COLOR, URINE YELLOW (YELLOW); GLUCOSE, URINE (UA) AUTO 3+ mg/dL (NEGATIVE); KETONE, URINE AUTO NEGATIVE (NEGATIVE); LEUKOCYTE ESTERASE, URINE AUTO 3+ (NEGATIVE); NITRITE, URINE AUTO NEGATIVE (NEGATIVE); PROTEIN, URINE AUTO 2+ mg/dL (NEGATIVE); RBC, URINE AUTO 3 /HPF (0-3); SQUAMOUS EPITHELIAL CELL UR AU 6 /HPF (0-6); UROBILINOGEN, URINE AUTO 0.2 mg/dL (0.0-2.0); WBC, URINE AUTO TNTC /HPF (0-3)
== END ==
LOC: SKLAB6 10:46
PROVIDERS: ATTEND Neuromusculoskeletal Medicine & OMM
DX: R41.0 Disorientation, unspecified (principal)

== ENCOUNTER → 2021-08-15 | Outpatient (REF) | payer MEDICARE, OTHER ==
[2021-08-15 11:21] LABS: CALCIUM LEVEL 10.2 MG/DL (8.8-10.2); CREATININE FOR GFR 2.53 MG/DL (0.55-1.30); GLOMERULAR FILTRATION RATE 19.5 (>39); POTASSIUM SERUM 5.5 MEQ/L (3.5-5.1)
== END ==
LOC: SKLAB6 07:00
PROVIDERS: ATTEND Neuromusculoskeletal Medicine & OMM
DX: N17.9 Acute kidney failure, unspecified (principal); N18.9 Chronic kidney disease, unspecified

== ENCOUNTER → 2021-08-16 | Outpatient (REF) | payer MEDICARE, OTHER ==
[2021-08-16 10:03] LABS: CALCIUM LEVEL 10.3 MG/DL (8.8-10.2); CREATININE FOR GFR 2.55 MG/DL (0.55-1.30); GLOMERULAR FILTRATION RATE 19.3 (>39); POTASSIUM SERUM 4.5 MEQ/L (3.5-5.1)
== END ==
LOC: SKLAB6 07:00
PROVIDERS: ATTEND Neuromusculoskeletal Medicine & OMM
DX: E87.6 Hypokalemia (principal)

== ENCOUNTER → 2021-08-17 | Outpatient (REF) | payer MEDICARE, OTHER ==
[2021-08-17 08:44] LABS: CALCIUM LEVEL 10.7 MG/DL (8.8-10.2); CREATININE FOR GFR 2.29 MG/DL (0.55-1.30); GLOMERULAR FILTRATION RATE 21.9 (>39)
== END ==
LOC: SKLAB6 07:00
PROVIDERS: ATTEND Neuromusculoskeletal Medicine & OMM
DX: E87.6 Hypokalemia (principal)

== ENCOUNTER → 2021-08-22 | Outpatient (REF) | payer MEDICARE, OTHER ==
[2021-08-22 17:15] LABS: PERCENT SATURATION 25.7 % (13.2-45.0)
== END ==
LOC: M LAB REF 16:56
PROVIDERS: ATTEND Internal Medicine Nephrology
DX: D50.9 Iron deficiency anemia, unspecified (principal)

== ENCOUNTER → 2021-09-04 | Outpatient (REF) | payer MEDICARE, OTHER | LOC: SKLAB6 07:12 | PROVIDERS: ATTEND Neuromusculoskeletal Medicine & OMM | DX: E11.9 Type 2 diabetes mellitus without complications (principal) ==

== ENCOUNTER → 2021-09-13 | Outpatient (REF) | payer MEDICARE, OTHER ==
[2021-09-13 08:38] LABS: BASO % 0.6 % (0.0-1.0); EOS # 0.3 10^3/uL (0.0-0.5); EOS % 3.9 % (0.0-3.0); HEMATOCRIT 29.2 % (36.0-47.0); HEMOGLOBIN 9.1 g/dl (12.0-15.5); LYMPH # 1.3 10^3/uL (1.5-5.0); LYMPH % 19.3 % (24.0-44.0); MEAN CORPUSCULAR HEMOGLOBIN 30.7 pg (27.0-33.0); MEAN CORPUSCULAR HGB CONC 31.2 g/dl (32.0-36.5); MEAN CORPUSCULAR VOLUME 98.6 fl (80.0-96.0); MONO # 0.9 10^3/uL (0.0-0.8); MONO % 12.8 % (2.0-8.0); NEUTROPHILS # 4.2 10^3/uL (1.5-8.5); NEUTROPHILS % 62.9 % (36.0-66.0); PLATELET COUNT, AUTOMATED 333 10^3/uL (150-450); RED BLOOD COUNT 2.96 10^6/uL (4.00-5.40); WHITE BLOOD COUNT 6.6 10^3/uL (4.0-10.0)
[2021-09-13 09:09] LABS: CALCIUM LEVEL 9.7 MG/DL (8.8-10.2); CREATININE FOR GFR 1.91 MG/DL (0.55-1.30); POTASSIUM SERUM 5.1 MEQ/L (3.5-5.1)
[2021-09-13 10:39] LABS: PTH INTACT 25.9 PG/ML (18.5-88.0); TOTAL 25(OH) VITAMIN D 31.7 NG/ML (30.0-100.0)
== END ==
LOC: SKLAB6 07:00
PROVIDERS: ATTEND Neuromusculoskeletal Medicine & OMM
DX: N18.9 Chronic kidney disease, unspecified (principal); Z79.899 Other long term (current) drug therapy

== ENCOUNTER → 2021-10-19 | Outpatient (REF) | payer MEDICARE | LOC: SKLAB6 14:35 | PROVIDERS: ATTEND Nurse Practitioner | DX: M25.521 Pain in right elbow (principal); Z91.81 History of falling ==

== ENCOUNTER → 2021-10-19 | Outpatient (CLI) | payer MEDICARE | LOC: M RAD 15:01 | PROVIDERS: ATTEND Neuromusculoskeletal Medicine & OMM | DX: M25.521 Pain in right elbow (principal) ==

== ENCOUNTER → 2021-12-14 | Outpatient (REF) | payer MEDICARE ==
[2021-12-14 10:11] LABS: BASO % 0.7 % (0.0-1.0); EOS # 0.2 10^3/uL (0.0-0.5); EOS % 2.5 % (0.0-3.0); HEMATOCRIT 28.1 % (36.0-47.0); LYMPH # 1.1 10^3/uL (1.5-5.0); LYMPH % 18.8 % (24.0-44.0); MEAN CORPUSCULAR HEMOGLOBIN 31.7 pg (27.0-33.0); MEAN CORPUSCULAR VOLUME 98.9 fl (80.0-96.0); MONO # 0.6 10^3/uL (0.0-0.8); MONO % 9.7 % (2.0-8.0); PLATELET COUNT, AUTOMATED 230 10^3/uL (150-450); RED BLOOD COUNT 2.84 10^6/uL (4.00-5.40)
[2021-12-14 10:48] LABS: ALBUMIN 2.8 GM/DL (3.2-5.2); CALCIUM LEVEL 9.1 MG/DL (8.8-10.2); CREATININE FOR GFR 1.68 MG/DL (0.55-1.30); GLOMERULAR FILTRATION RATE 31.2 (>32); PHOSPHORUS LEVEL 3.5 MG/DL (2.5-4.9); POTASSIUM SERUM 4.8 MEQ/L (3.5-5.1)
== END ==
LOC: SKLAB6 07:31
PROVIDERS: ATTEND Neuromusculoskeletal Medicine & OMM
DX: N18.9 Chronic kidney disease, unspecified (principal); E11.9 Type 2 diabetes mellitus without complications

== ENCOUNTER → 2021-12-27 | Outpatient (REF) | payer MEDICARE ==
[2021-12-27 13:27] LABS: HEMATOCRIT 31.4 % (36.0-47.0); HEMOGLOBIN 9.7 g/dl (12.0-15.5); MEAN CORPUSCULAR HEMOGLOBIN 31.3 pg (27.0-33.0); MEAN CORPUSCULAR HGB CONC 30.9 g/dl (32.0-36.5); MEAN CORPUSCULAR VOLUME 101.3 fl (80.0-96.0); PLATELET COUNT, AUTOMATED 277 10^3/uL (150-450); WHITE BLOOD COUNT 6.8 10^3/uL (4.0-10.0)
[2021-12-27 15:58] LABS: ALBUMIN 3.1 GM/DL (3.2-5.2); BILIRUBIN,TOTAL 0.4 MG/DL (0.2-1.0); CALCIUM LEVEL 8.9 MG/DL (8.8-10.2); CHOLESTEROL RISK RATIO 2.625 (<5); CREATININE FOR GFR 2.01 MG/DL (0.55-1.30); GLOMERULAR FILTRATION RATE 25.4 (>32); PERCENT SATURATION 27.1 % (13.2-45.0); TOTAL PROTEIN 6.9 GM/DL (6.4-8.2)
[2021-12-27 20:22] LABS: HEMOGLOBIN A1c 7.1 %
== END ==
LOC: SKLAB6 08:00
PROVIDERS: ATTEND Neuromusculoskeletal Medicine & OMM
DX: I50.9 Heart failure, unspecified (principal); E87.5 Hyperkalemia; Z79.899 Other long term (current) drug therapy

== ENCOUNTER → 2022-01-24 | Outpatient (REF) | payer MEDICARE ==
[2022-01-24 07:49] LABS: HEMOGLOBIN 9.9 g/dl (12.0-15.5); MEAN CORPUSCULAR HEMOGLOBIN 31.9 pg (27.0-33.0); MEAN CORPUSCULAR HGB CONC 31.9 g/dl (32.0-36.5); PLATELET COUNT, AUTOMATED 250 10^3/uL (150-450); WHITE BLOOD COUNT 5.9 10^3/uL (4.0-10.0)
[2022-01-24 08:30] LABS: ALBUMIN 3.1 GM/DL (3.2-5.2); CALCIUM LEVEL 9.2 MG/DL (8.8-10.2); CREATININE FOR GFR 2.05 MG/DL (0.55-1.30); GLOMERULAR FILTRATION RATE 24.8 (>32); PERCENT SATURATION 29.6 % (13.2-45.0); PHOSPHORUS LEVEL 4.1 MG/DL (2.5-4.9); POTASSIUM SERUM 5.1 MEQ/L (3.5-5.1)
[2022-01-24 10:34] LABS: PTH INTACT 87.4 PG/ML (18.5-88.0)
== END ==
LOC: SKLAB6 07:00
PROVIDERS: ATTEND Nurse Practitioner Family
DX: N18.9 Chronic kidney disease, unspecified (principal)

== ENCOUNTER → 2022-02-15 | Outpatient (REF) | payer MEDICARE ==
[2022-02-15 10:42] LABS: APPEARANCE, URINE MANUAL HAZY (CLEAR); COLOR, URINE MANUAL LT YELLOW (YELLOW); SPECIFIC GRAVITY,URINE MANUAL 1.015 (1.002-1.035)
[2022-02-15 10:43] LABS: BILIRUBIN, URINE MANUAL NEGATIVE (NEGATIVE); BLOOD URINE MANUAL POSITIVE (NEGATIVE); GLUCOSE, URINE (UA) MANUAL 1+(100 MG/DL) mg/dL (NEGATIVE); KETONE, URINE MANUAL NEGATIVE (NEGATIVE); LEUKOCYTE ESTERASE, URINE MAN POSITIVE (NEGATIVE); NITRITE, URINE MANUAL NEGATIVE (NEGATIVE); PROTEIN, URINE MANUAL 2+ mg/dL (NEGATIVE); UROBILINOGEN, URINE MANUAL NORMAL (NORMAL)
[2022-02-15 10:55] LABS: BACTERIA, URINE LARGE AMOUNT; WBC, URINE TNTC /hpf (0-3)
[2022-02-15 10:56] LABS: HYALINE CAST, URINE NONE SEEN /lpf (0-1); SQUAMOUS EPITHELIAL CELL URINE SMALL AMOUNT /hpf (SMALL AMT)
== END ==
LOC: SKLAB6 09:11
PROVIDERS: ATTEND Nurse Practitioner Family
DX: R41.82 Altered mental status, unspecified (principal)

== ENCOUNTER → 2022-03-30 | Outpatient (REF) | payer MEDICARE | LOC: SKLAB6 01:34 | PROVIDERS: ATTEND Neuromusculoskeletal Medicine & OMM | DX: S59.191A Other physeal fracture of upper end of radius, right arm, initial encounter for closed fracture (principal); S62.616A Displaced fracture of proximal phalanx of right little finger, initial encounter for closed fracture ==

== ENCOUNTER → 2022-04-09 | Outpatient (REF) | payer MEDICARE | LOC: SKLAB6 03-30 01:34 | PROVIDERS: ATTEND Neuromusculoskeletal Medicine & OMM | DX: M25.531 Pain in right wrist (principal); Z53.8 Procedure and treatment not carried out for other reasons ==

== ENCOUNTER → 2022-04-18 | Outpatient (REF) | payer MEDICARE ==
[2022-04-18 09:22] LABS: BASO # 0.1 10^3/uL (0.0-0.2); BASO % 0.5 % (0.0-1.0); EOS # 0.3 10^3/uL (0.0-0.5); EOS % 2.8 % (0.0-3.0); HEMATOCRIT 26.1 % (36.0-47.0); HEMOGLOBIN 8.2 g/dl (12.0-15.5); LYMPH # 1.4 10^3/uL (1.5-5.0); LYMPH % 14.5 % (24.0-44.0); MEAN CORPUSCULAR HEMOGLOBIN 30.9 pg (27.0-33.0); MEAN CORPUSCULAR HGB CONC 31.4 g/dl (32.0-36.5); MEAN CORPUSCULAR VOLUME 98.5 fl (80.0-96.0); MONO # 0.9 10^3/uL (0.0-0.8); MONO % 10.1 % (2.0-8.0); NEUTROPHILS # 6.7 10^3/uL (1.5-8.5); NEUTROPHILS % 71.8 % (36.0-66.0); PLATELET COUNT, AUTOMATED 394 10^3/uL (150-450); RED BLOOD COUNT 2.65 10^6/uL (4.00-5.40); WHITE BLOOD COUNT 9.3 10^3/uL (4.0-10.0)
[2022-04-18 10:00] LABS: ALBUMIN 2.8 G/DL (3.2-5.2); CALCIUM LEVEL 8.7 MG/DL (8.3-10.6); CREATININE FOR GFR 1.88 MG/DL (0.55-1.30); GLOMERULAR FILTRATION RATE 27.4 (>32); PHOSPHORUS LEVEL 3.8 MG/DL (2.4-5.1); POTASSIUM SERUM 4.8 MMOL/L (3.5-5.1); PTH INTACT 126.3 PG/ML (18.5-88.0)
== END ==
LOC: SKLAB6 07:00
PROVIDERS: ATTEND Internal Medicine
DX: N18.9 Chronic kidney disease, unspecified (principal)

== ENCOUNTER → 2022-05-02 | Outpatient (REF) | payer MEDICARE ==
[2022-05-02 09:52] LABS: PERCENT SATURATION 8.2 % (13.2-45.0)
[2022-05-02 09:54] LABS: FERRITIN 364.3 NG/ML (7.3-270.7)
[2022-05-02 10:56] LABS: HEMATOCRIT 26.2 % (36.0-47.0); HEMOGLOBIN 8.1 g/dl (12.0-15.5); MEAN CORPUSCULAR HGB CONC 30.9 g/dl (32.0-36.5); PLATELET COUNT, AUTOMATED 470 10^3/uL (150-450); WHITE BLOOD COUNT 6.2 10^3/uL (4.0-10.0)
== END ==
LOC: SKLAB6 08:25
PROVIDERS: ATTEND Internal Medicine
DX: N18.9 Chronic kidney disease, unspecified (principal)

== ENCOUNTER → 2022-05-06 | Outpatient (CLI) | payer MEDICARE | LOC: M SOG 08:38 | PROVIDERS: ATTEND Orthopaedic Surgery Hand Surgery | DX: S52.531A Colles' fracture of right radius, initial encounter for closed fracture (principal); W18.30XA Fall on same level, unspecified, initial encounter; Y92.009 Unspecified place in unspecified non-institutional (private) residence as the place of occurrence of the external cause ==

== ENCOUNTER 2022-05-09 14:02 | Outpatient (CLI) | payer MEDICARE ==
[~2022-05-09] VITALS: Ht 162.6 cm; Wt 74.0 kg
[~2022-05-09 14:02] MED LIST changes: +ALBUTEROL SULFATE 2.5MG/0.5ML INH NEB SOLN INH PRN; +EPINEPHrine INJ 1 MG/ML 1ML AMP IM PRN; +FERRIC CARBOXYMALTOSE INJ 750 MG in NS 250 ML (>50kg) IV ONE; +NS 1,000 ML IV SCH; +diphenhydrAMINE 50MG/ML VIAL IV PRN; +methylPREDNISolone 125MG 2ML VIAL IV PRN
[2022-05-09 14:22] VITALS: BP 130/72
== END 2022-05-09 15:45 | disposition home or self-care (01) ==
LOC: M INFU 14:02
PROVIDERS: ATTEND Internal Medicine Nephrology
DX: D64.9 Anemia, unspecified (principal); D63.1 Anemia in chronic kidney disease
CPT/HCPCS: 96365; J1439

== ENCOUNTER 2022-05-16 14:15 | Outpatient (CLI) | payer MEDICARE ==
[~2022-05-16] VITALS: Ht 162.6 cm; Wt 74.0 kg
[2022-05-16 14:28] VITALS: BP 153/78
[2022-05-16 15:36] VITALS: BP 169/74
== END 2022-05-16 15:40 ==
LOC: M INFU 14:15
PROVIDERS: ATTEND Internal Medicine Nephrology
DX: N18.9 Chronic kidney disease, unspecified (principal); D63.1 Anemia in chronic kidney disease
CPT/HCPCS: 96365; J1439

== ENCOUNTER → 2022-06-03 | Outpatient (CLI) | payer MEDICARE ==
[~2022-06-03] MED LIST changes: -ALBUTEROL SULFATE 2.5MG/0.5ML INH NEB SOLN INH PRN; -EPINEPHrine INJ 1 MG/ML 1ML AMP IM PRN; -FERRIC CARBOXYMALTOSE INJ 750 MG in NS 250 ML (>50kg) IV ONE; -NS 1,000 ML IV SCH; -diphenhydrAMINE 50MG/ML VIAL IV PRN; -methylPREDNISolone 125MG 2ML VIAL IV PRN
== END ==
LOC: M SOG 09:44
PROVIDERS: ATTEND Orthopaedic Surgery Hand Surgery
DX: S52.531D Colles' fracture of right radius, subsequent encounter for closed fracture with routine healing (principal); W18.30XD Fall on same level, unspecified, subsequent encounter

== ENCOUNTER → 2022-06-27 | Outpatient (REF) | payer MEDICARE ==
[2022-06-27 07:54] LABS: HEMATOCRIT 31.2 % (36.0-47.0); HEMOGLOBIN 9.6 g/dl (12.0-15.5); MEAN CORPUSCULAR HEMOGLOBIN 29.6 pg (27.0-33.0); MEAN CORPUSCULAR HGB CONC 30.8 g/dl (32.0-36.5); MEAN CORPUSCULAR VOLUME 96.3 fl (80.0-96.0); PLATELET COUNT, AUTOMATED 310 10^3/uL (150-450); RED BLOOD COUNT 3.24 10^6/uL (4.00-5.40); WHITE BLOOD COUNT 6.4 10^3/uL (4.0-10.0)
[2022-06-27 08:25] LABS: PERCENT SATURATION 25.5 % (13.2-45.0)
[2022-06-27 08:27] LABS: HEMOGLOBIN A1c 7.2 % (4.0-6.0)
[2022-06-27 08:31] LABS: ALBUMIN 2.8 G/DL (3.2-5.2); BILIRUBIN,TOTAL 0.4 MG/DL (0.3-1.2); CREATININE FOR GFR 1.77 MG/DL (0.55-1.30); FERRITIN 846.4 NG/ML (7.3-270.7); GLOMERULAR FILTRATION RATE 29.4 (>32); POTASSIUM SERUM 5.2 MMOL/L (3.5-5.1); TOTAL PROTEIN 6.8 G/DL (5.7-8.2)
== END ==
LOC: SKLAB6 07:00
PROVIDERS: ATTEND Internal Medicine
DX: I50.9 Heart failure, unspecified (principal); E87.5 Hyperkalemia; Z79.899 Other long term (current) drug therapy

== ENCOUNTER → 2022-07-23 | Outpatient (REF) | payer MEDICARE ==
[2022-07-23 08:38] LABS: HEMATOCRIT 31.8 % (36.0-47.0); HEMOGLOBIN 9.7 g/dl (12.0-15.5); MEAN CORPUSCULAR HEMOGLOBIN 30.8 pg (27.0-33.0); MEAN CORPUSCULAR HGB CONC 30.5 g/dl (32.0-36.5); PLATELET COUNT, AUTOMATED 277 10^3/uL (150-450); RED BLOOD COUNT 3.15 10^6/uL (4.00-5.40); WHITE BLOOD COUNT 6.5 10^3/uL (4.0-10.0)
== END ==
LOC: SKLAB6 07:39
PROVIDERS: ATTEND Internal Medicine
DX: D64.9 Anemia, unspecified (principal)

== ENCOUNTER → 2022-07-25 | Outpatient (REF) | payer MEDICARE ==
[2022-07-25 07:08] LABS: HEMATOCRIT 29.7 % (36.0-47.0); HEMOGLOBIN 9.3 g/dl (12.0-15.5); MEAN CORPUSCULAR HEMOGLOBIN 30.9 pg (27.0-33.0); MEAN CORPUSCULAR HGB CONC 31.3 g/dl (32.0-36.5); MEAN CORPUSCULAR VOLUME 98.7 fl (80.0-96.0); PLATELET COUNT, AUTOMATED 247 10^3/uL (150-450); RED BLOOD COUNT 3.01 10^6/uL (4.00-5.40); WHITE BLOOD COUNT 5.5 10^3/uL (4.0-10.0)
== END ==
LOC: SKLAB6 07:00
PROVIDERS: ATTEND Internal Medicine
DX: D64.9 Anemia, unspecified (principal)

== ENCOUNTER → 2022-08-29 | Outpatient (REF) | payer MEDICARE ==
[2022-08-29 07:42] LABS: HEMATOCRIT 34.7 % (36.0-47.0); HEMOGLOBIN 10.8 g/dl (12.0-15.5); MEAN CORPUSCULAR HEMOGLOBIN 31.3 pg (27.0-33.0); MEAN CORPUSCULAR HGB CONC 31.1 g/dl (32.0-36.5); MEAN CORPUSCULAR VOLUME 100.6 fl (80.0-96.0); PLATELET COUNT, AUTOMATED 275 10^3/uL (150-450); RED BLOOD COUNT 3.45 10^6/uL (4.00-5.40); WHITE BLOOD COUNT 7.4 10^3/uL (4.0-10.0)
== END ==
LOC: SKLAB6 07:00
PROVIDERS: ATTEND Internal Medicine
DX: D64.9 Anemia, unspecified (principal)

== ENCOUNTER → 2022-09-06 | Outpatient (REF) | payer MEDICARE | LOC: SKLAB6 13:40 | PROVIDERS: ATTEND Internal Medicine | DX: R30.0 Dysuria (principal); Z53.8 Procedure and treatment not carried out for other reasons ==

== ENCOUNTER → 2022-09-09 | Outpatient (REF) | payer MEDICARE ==
[2022-09-09 15:56] LABS: APPEARANCE, URINE CLOUDY (CLEAR); BACTERIA, URINE AUTO 3+ (NEGATIVE); BILIRUBIN, URINE AUTO NEGATIVE (NEGATIVE); BLOOD, URINE BLOOD 2+ (NEGATIVE); COLOR, URINE YELLOW (YELLOW); GLUCOSE, URINE (UA) AUTO NEGATIVE (NEGATIVE); KETONE, URINE AUTO NEGATIVE (NEGATIVE); LEUKOCYTE ESTERASE, URINE AUTO 2+ (NEGATIVE); MUCUS, URINE SMALL (NEGATIVE); NITRITE, URINE AUTO NEGATIVE (NEGATIVE); PROTEIN, URINE AUTO 2+ mg/dL (NEGATIVE); RBC, URINE AUTO 51 /HPF (0-3); SPECIFIC GRAVITY URINE AUTO 1.013 (1.002-1.035); SQUAMOUS EPITHELIAL CELL UR AU 1 /HPF (0-6); UROBILINOGEN, URINE AUTO 0.2 mg/dL (0.0-2.0); WBC, URINE AUTO 143 /HPF (0-3)
== END ==
LOC: SKLAB6 15:08
PROVIDERS: ATTEND Internal Medicine
DX: R41.82 Altered mental status, unspecified (principal)

== ENCOUNTER → 2022-09-26 | Outpatient (REF) | payer MEDICARE ==
[2022-09-26 08:34] LABS: HEMATOCRIT 33.1 % (36.0-47.0); HEMOGLOBIN 10.4 g/dl (12.0-15.5); MEAN CORPUSCULAR HEMOGLOBIN 31.9 pg (27.0-33.0); MEAN CORPUSCULAR HGB CONC 31.4 g/dl (32.0-36.5); MEAN CORPUSCULAR VOLUME 101.5 fl (80.0-96.0); PLATELET COUNT, AUTOMATED 257 10^3/uL (150-450); RED BLOOD COUNT 3.26 10^6/uL (4.00-5.40); WHITE BLOOD COUNT 5.2 10^3/uL (4.0-10.0)
== END ==
LOC: SKLAB6 07:00
PROVIDERS: ATTEND Internal Medicine
DX: D64.9 Anemia, unspecified (principal)

== ENCOUNTER → 2022-10-21 | Outpatient (REF) | payer MEDICARE ==
[2022-10-21 07:25] LABS: HEMATOCRIT 32.5 % (36.0-47.0); HEMOGLOBIN 10.1 g/dl (12.0-15.5); MEAN CORPUSCULAR HEMOGLOBIN 31.4 pg (27.0-33.0); MEAN CORPUSCULAR HGB CONC 31.1 g/dl (32.0-36.5); MEAN CORPUSCULAR VOLUME 100.9 fl (80.0-96.0); PLATELET COUNT, AUTOMATED 265 10^3/uL (150-450); RED BLOOD COUNT 3.22 10^6/uL (4.00-5.40); WHITE BLOOD COUNT 5.8 10^3/uL (4.0-10.0)
[2022-10-21 07:54] LABS: CALCIUM LEVEL 8.3 MG/DL (8.3-10.6); CREATININE FOR GFR 1.89 MG/DL (0.55-1.30); GLOMERULAR FILTRATION RATE 27.2 (>32); PHOSPHORUS LEVEL 4.1 MG/DL (2.4-5.1); POTASSIUM SERUM 4.9 MMOL/L (3.5-5.1)
== END ==
LOC: SKLAB6 07:00
PROVIDERS: ATTEND Internal Medicine
DX: N18.4 Chronic kidney disease, stage 4 (severe) (principal)

== ENCOUNTER → 2022-12-23 | Outpatient (REF) | payer MEDICARE ==
[2022-12-23 11:04] LABS: BASO # 0.1 10^3/uL (0.0-0.2); BASO % 0.9 % (0.0-1.0); EOS # 0.3 10^3/uL (0.0-0.5); EOS % 4.9 % (0.0-3.0); HEMATOCRIT 34.6 % (36.0-47.0); HEMOGLOBIN 11.1 g/dl (12.0-15.5); LYMPH # 1.2 10^3/uL (1.5-5.0); LYMPH % 18.7 % (24.0-44.0); MEAN CORPUSCULAR HEMOGLOBIN 33.1 pg (27.0-33.0); MEAN CORPUSCULAR HGB CONC 32.1 g/dl (32.0-36.5); MEAN CORPUSCULAR VOLUME 103.3 fl (80.0-96.0); MONO # 0.6 10^3/uL (0.0-0.8); MONO % 9.7 % (2.0-8.0); NEUTROPHILS # 4.2 10^3/uL (1.5-8.5); NEUTROPHILS % 65.6 % (36.0-66.0); PLATELET COUNT, AUTOMATED 291 10^3/uL (150-450); RED BLOOD COUNT 3.35 10^6/uL (4.00-5.40); WHITE BLOOD COUNT 6.4 10^3/uL (4.0-10.0)
[2022-12-23 11:33] LABS: ALBUMIN 3.2 G/DL (3.2-5.2); CALCIUM LEVEL 8.9 MG/DL (8.3-10.6); CREATININE FOR GFR 2.03 MG/DL (0.55-1.30); PERCENT SATURATION 28.6 % (13.2-45.0); POTASSIUM SERUM 5.4 MMOL/L (3.5-5.1); PTH INTACT 207.4 PG/ML (18.5-88.0)
== END ==
LOC: SKLAB6 09:36
PROVIDERS: ATTEND Internal Medicine
DX: N18.9 Chronic kidney disease, unspecified (principal)

== ENCOUNTER → 2022-12-26 | Outpatient (REF) | payer MEDICARE ==
[2022-12-26 08:22] LABS: HEMATOCRIT 32.3 % (36.0-47.0); HEMOGLOBIN 10.1 g/dl (12.0-15.5); MEAN CORPUSCULAR HGB CONC 31.3 g/dl (32.0-36.5); MEAN CORPUSCULAR VOLUME 102.2 fl (80.0-96.0); PLATELET COUNT, AUTOMATED 271 10^3/uL (150-450); RED BLOOD COUNT 3.16 10^6/uL (4.00-5.40); WHITE BLOOD COUNT 6.1 10^3/uL (4.0-10.0)
[2022-12-26 08:42] LABS: HEMOGLOBIN A1c 7.2 % (4.0-6.0)
[2022-12-26 08:46] LABS: ALBUMIN 3.1 G/DL (3.2-5.2); BILIRUBIN,TOTAL 0.5 MG/DL (0.3-1.2); CALCIUM LEVEL 8.8 MG/DL (8.3-10.6); CREATININE FOR GFR 1.94 MG/DL (0.55-1.30); GLOMERULAR FILTRATION RATE 26.4 (>32); POTASSIUM SERUM 4.8 MMOL/L (3.5-5.1); TOTAL PROTEIN 6.8 G/DL (5.7-8.2)
[2022-12-26 12:51] LABS: APPEARANCE, URINE HAZY (CLEAR); BACTERIA, URINE AUTO 2+ (NEGATIVE); BILIRUBIN, URINE AUTO NEGATIVE (NEGATIVE); BLOOD, URINE BLOOD 1+ (NEGATIVE); COLOR, URINE YELLOW (YELLOW); GLUCOSE, URINE (UA) AUTO NEGATIVE (NEGATIVE); KETONE, URINE AUTO NEGATIVE (NEGATIVE); LEUKOCYTE ESTERASE, URINE AUTO 2+ (NEGATIVE); MUCUS, URINE SMALL (NEGATIVE); NITRITE, URINE AUTO POSITIVE (NEGATIVE); PROTEIN, URINE AUTO 2+ mg/dL (NEGATIVE); RBC, URINE AUTO 3 /HPF (0-3); SPECIFIC GRAVITY URINE AUTO 1.011 (1.002-1.035); SQUAMOUS EPITHELIAL CELL UR AU 1 /HPF (0-6); UROBILINOGEN, URINE AUTO 0.2 mg/dL (0.0-2.0); WBC, URINE AUTO 87 /HPF (0-3)
[2022-12-26 13:10] LABS: CREATININE, URINE 45.1 MG/DL
[2022-12-26 13:25] LABS: MAU/CREAT RATIO 1048.7 MCG/MG (0.0-30.0)
== END ==
LOC: SKLAB6 07:00
PROVIDERS: ATTEND Internal Medicine
DX: N18.9 Chronic kidney disease, unspecified (principal); E11.22 Type 2 diabetes mellitus with diabetic chronic kidney disease

== ENCOUNTER → 2023-01-16 | Outpatient (REF) | payer MEDICARE | LOC: SKLAB6 14:45 | PROVIDERS: ATTEND Internal Medicine | DX: R41.0 Disorientation, unspecified (principal); R82.998 Other abnormal findings in urine ==

== ENCOUNTER → 2023-01-17 | Outpatient (REF) | payer MEDICARE ==
[2023-01-17 10:57] LABS: HEMATOCRIT 32.8 % (36.0-47.0); HEMOGLOBIN 10.2 g/dl (12.0-15.5); MEAN CORPUSCULAR HEMOGLOBIN 32.3 pg (27.0-33.0); MEAN CORPUSCULAR HGB CONC 31.1 g/dl (32.0-36.5); MEAN CORPUSCULAR VOLUME 103.8 fl (80.0-96.0); PLATELET COUNT, AUTOMATED 262 10^3/uL (150-450); RED BLOOD COUNT 3.16 10^6/uL (4.00-5.40); WHITE BLOOD COUNT 5.6 10^3/uL (4.0-10.0)
[2023-01-17 11:34] LABS: CALCIUM LEVEL 8.3 MG/DL (8.3-10.6); CREATININE FOR GFR 1.99 MG/DL (0.55-1.30); GLOMERULAR FILTRATION RATE 25.6 (>32); POTASSIUM SERUM 4.6 MMOL/L (3.5-5.1)
== END ==
LOC: SKLAB6 10:22
PROVIDERS: ATTEND Internal Medicine
DX: R41.82 Altered mental status, unspecified (principal)

== ENCOUNTER → 2023-01-23 | Outpatient (REF) | payer MEDICARE ==
[2023-01-23 08:44] LABS: HEMATOCRIT 35.8 % (36.0-47.0); HEMOGLOBIN 11.2 g/dl (12.0-15.5); MEAN CORPUSCULAR HEMOGLOBIN 32.2 pg (27.0-33.0); MEAN CORPUSCULAR HGB CONC 31.3 g/dl (32.0-36.5); MEAN CORPUSCULAR VOLUME 102.9 fl (80.0-96.0); PLATELET COUNT, AUTOMATED 262 10^3/uL (150-450); RED BLOOD COUNT 3.48 10^6/uL (4.00-5.40)
== END ==
LOC: SKLAB6 07:00
PROVIDERS: ATTEND Internal Medicine
DX: N39.0 Urinary tract infection, site not specified (principal)

== ENCOUNTER → 2023-02-27 | Outpatient (REF) | payer MEDICARE ==
[2023-02-27 07:42] LABS: HEMATOCRIT 36.5 % (36.0-47.0); HEMOGLOBIN 11.6 g/dl (12.0-15.5); MEAN CORPUSCULAR HEMOGLOBIN 32.6 pg (27.0-33.0); MEAN CORPUSCULAR HGB CONC 31.8 g/dl (32.0-36.5); MEAN CORPUSCULAR VOLUME 102.5 fl (80.0-96.0); PLATELET COUNT, AUTOMATED 271 10^3/uL (150-450); RED BLOOD COUNT 3.56 10^6/uL (4.00-5.40); WHITE BLOOD COUNT 8.2 10^3/uL (4.0-10.0)
== END ==
LOC: SKLAB6 07:00
PROVIDERS: ATTEND Internal Medicine
DX: D64.9 Anemia, unspecified (principal)

== ENCOUNTER → 2023-03-03 | Outpatient (REF) | payer MEDICARE | LOC: SKLAB6 14:47 | PROVIDERS: ATTEND Internal Medicine | DX: Z53.8 Procedure and treatment not carried out for other reasons (principal) ==

== ENCOUNTER → 2023-03-05 | Outpatient (REF) | payer MEDICARE ==
[2023-03-05 10:20] LABS: APPEARANCE, URINE HAZY (CLEAR); BACTERIA, URINE AUTO 3+ (NEGATIVE); BILIRUBIN, URINE AUTO NEGATIVE (NEGATIVE); BLOOD, URINE BLOOD NEGATIVE (NEGATIVE); COLOR, URINE YELLOW (YELLOW); GLUCOSE, URINE (UA) AUTO NEGATIVE (NEGATIVE); KETONE, URINE AUTO NEGATIVE (NEGATIVE); LEUKOCYTE ESTERASE, URINE AUTO 2+ (NEGATIVE); NITRITE, URINE AUTO NEGATIVE (NEGATIVE); PROTEIN, URINE AUTO 2+ mg/dL (NEGATIVE); RBC, URINE AUTO 1 /HPF (0-3); SPECIFIC GRAVITY URINE AUTO 1.012 (1.002-1.035); SQUAMOUS EPITHELIAL CELL UR AU 0 /HPF (0-6); UROBILINOGEN, URINE AUTO 0.2 mg/dL (0.0-2.0); WBC, URINE AUTO 108 /HPF (0-3)
== END ==
LOC: SKLAB6 09:56
PROVIDERS: ATTEND Internal Medicine
DX: R41.82 Altered mental status, unspecified (principal)

== ENCOUNTER → 2023-03-27 | Outpatient (REF) | payer MEDICARE ==
[2023-03-27 07:42] LABS: HEMATOCRIT 33.9 % (36.0-47.0); HEMOGLOBIN 10.7 g/dl (12.0-15.5); MEAN CORPUSCULAR HEMOGLOBIN 32.4 pg (27.0-33.0); MEAN CORPUSCULAR HGB CONC 31.6 g/dl (32.0-36.5); MEAN CORPUSCULAR VOLUME 102.7 fl (80.0-96.0); PLATELET COUNT, AUTOMATED 240 10^3/uL (150-450)
[2023-03-27 08:10] LABS: BILIRUBIN,TOTAL 0.6 MG/DL (0.3-1.2); CREATININE FOR GFR 1.98 MG/DL (0.55-1.30); GLOMERULAR FILTRATION RATE 25.8 (>32); POTASSIUM SERUM 4.8 MMOL/L (3.5-5.1); TOTAL PROTEIN 6.8 G/DL (5.7-8.2)
[2023-03-27 23:35] LABS: APPEARANCE, URINE CLOUDY (CLEAR); BACTERIA, URINE AUTO 1+ (NEGATIVE); BILIRUBIN, URINE AUTO NEGATIVE (NEGATIVE); BLOOD, URINE BLOOD 1+ (NEGATIVE); COLOR, URINE YELLOW (YELLOW); GLUCOSE, URINE (UA) AUTO 1+ mg/dL (NEGATIVE); KETONE, URINE AUTO NEGATIVE (NEGATIVE); LEUKOCYTE ESTERASE, URINE AUTO 3+ (NEGATIVE); MUCUS, URINE SMALL (NEGATIVE); NITRITE, URINE AUTO NEGATIVE (NEGATIVE); PROTEIN, URINE AUTO 2+ mg/dL (NEGATIVE); RBC, URINE AUTO 2 /HPF (0-3); SPECIFIC GRAVITY URINE AUTO 1.016 (1.002-1.035); SQUAMOUS EPITHELIAL CELL UR AU 5 /HPF (0-6); UROBILINOGEN, URINE AUTO 0.2 mg/dL (0.0-2.0); WBC, URINE AUTO TNTC /HPF (0-3)
== END ==
LOC: SKLAB6 07:00
PROVIDERS: ATTEND Internal Medicine
DX: S00.03XA Contusion of scalp, initial encounter (principal); X58.XXXA Exposure to other specified factors, initial encounter; Y92.129 Unspecified place in nursing home as the place of occurrence of the external cause; Y93.9 Activity, unspecified; Y99.9 Unspecified external cause status; Z79.899 Other long term (current) drug therapy

== ENCOUNTER → 2023-04-02 | Outpatient (CLI) | payer MEDICARE | LOC: M RAD 13:54 | PROVIDERS: ATTEND Nurse Practitioner Adult Health | DX: M54.59 Other low back pain (principal) ==

== ENCOUNTER → 2023-04-02 | Outpatient (REF) | payer MEDICARE | LOC: SKLAB6 13:18 | PROVIDERS: ATTEND Internal Medicine | DX: Z53.8 Procedure and treatment not carried out for other reasons (principal) ==

== ENCOUNTER → 2023-04-07 | Outpatient (REF) | payer MEDICARE ==
[2023-04-07 12:19] LABS: HEMATOCRIT 37.8 % (36.0-47.0); HEMOGLOBIN 12.1 g/dl (12.0-15.5); MEAN CORPUSCULAR HEMOGLOBIN 33.2 pg (27.0-33.0); MEAN CORPUSCULAR VOLUME 103.8 fl (80.0-96.0); PLATELET COUNT, AUTOMATED 244 10^3/uL (150-450); RED BLOOD COUNT 3.64 10^6/uL (4.00-5.40); WHITE BLOOD COUNT 8.3 10^3/uL (4.0-10.0)
== END ==
LOC: SKLAB6 11:35
PROVIDERS: ATTEND Internal Medicine
DX: R53.1 Weakness (principal); R42 Dizziness and giddiness

== ENCOUNTER → 2023-04-11 | Outpatient (REF) | payer MEDICARE ==
[2023-04-11 07:08] LABS: MEAN CORPUSCULAR HEMOGLOBIN 33.1 pg (27.0-33.0); MEAN CORPUSCULAR HGB CONC 32.4 g/dl (32.0-36.5); MEAN CORPUSCULAR VOLUME 102.2 fl (80.0-96.0); PLATELET COUNT, AUTOMATED 289 10^3/uL (150-450); RED BLOOD COUNT 3.62 10^6/uL (4.00-5.40); WHITE BLOOD COUNT 9.5 10^3/uL (4.0-10.0)
[2023-04-11 07:30] LABS: CALCIUM LEVEL 9.3 MG/DL (8.3-10.6); CREATININE FOR GFR 2.16 MG/DL (0.55-1.30); GLOMERULAR FILTRATION RATE 23.3 (>32); POTASSIUM SERUM 4.8 MMOL/L (3.5-5.1)
== END ==
LOC: SKLAB6 06:29
PROVIDERS: ATTEND Internal Medicine
DX: R41.82 Altered mental status, unspecified (principal)

== ENCOUNTER → 2023-04-11 | Outpatient (REF) ==
[2023-04-11 14:40] LABS: APPEARANCE, URINE CLOUDY (CLEAR); BACTERIA, URINE AUTO 3+ (NEGATIVE); BILIRUBIN, URINE AUTO NEGATIVE (NEGATIVE); BLOOD, URINE BLOOD 1+ (NEGATIVE); COLOR, URINE YELLOW (YELLOW); GLUCOSE, URINE (UA) AUTO NEGATIVE (NEGATIVE); KETONE, URINE AUTO NEGATIVE (NEGATIVE); LEUKOCYTE ESTERASE, URINE AUTO 3+ (NEGATIVE); NITRITE, URINE AUTO NEGATIVE (NEGATIVE); PROTEIN, URINE AUTO 2+ mg/dL (NEGATIVE); RBC, URINE AUTO 3 /HPF (0-3); SQUAMOUS EPITHELIAL CELL UR AU 0 /HPF (0-6); UROBILINOGEN, URINE AUTO 0.2 mg/dL (0.0-2.0); WBC, URINE AUTO 101 /HPF (0-3)
== END ==
LOC: SKLAB6 12:42
PROVIDERS: ATTEND Nurse Practitioner Adult Health
DX: S62.641A Nondisplaced fracture of proximal phalanx of left index finger, initial encounter for closed fracture (principal); R41.82 Altered mental status, unspecified

== ENCOUNTER → 2023-04-13 | Outpatient (REF) | payer MEDICARE ==
[2023-04-13 03:56] LABS: AMORPHOUS SEDIMENT SMALL (NEGATIVE); APPEARANCE, URINE CLOUDY (CLEAR); BACTERIA, URINE AUTO 2+ (NEGATIVE); BILIRUBIN, URINE AUTO NEGATIVE (NEGATIVE); BLOOD, URINE BLOOD NEGATIVE (NEGATIVE); COLOR, URINE YELLOW (YELLOW); GLUCOSE, URINE (UA) AUTO NEGATIVE (NEGATIVE); KETONE, URINE AUTO NEGATIVE (NEGATIVE); LEUKOCYTE ESTERASE, URINE AUTO 3+ (NEGATIVE); MUCUS, URINE SMALL (NEGATIVE); NITRITE, URINE AUTO NEGATIVE (NEGATIVE); PROTEIN, URINE AUTO 2+ mg/dL (NEGATIVE); RBC, URINE AUTO 1 /HPF (0-3); SPECIFIC GRAVITY URINE AUTO 1.012 (1.002-1.035); SQUAMOUS EPITHELIAL CELL UR AU 2 /HPF (0-6); UROBILINOGEN, URINE AUTO 0.2 mg/dL (0.0-2.0); WBC, URINE AUTO 119 /HPF (0-3)
== END ==
LOC: SKLAB6 07:00
PROVIDERS: ATTEND Internal Medicine
DX: R82.998 Other abnormal findings in urine (principal)

== ENCOUNTER → 2023-04-24 | Outpatient (CLI) | payer MEDICARE | LOC: M SOG 13:18 | PROVIDERS: ATTEND Physician Assistant | DX: M79.645 Pain in left finger(s) (principal) ==

== ENCOUNTER → 2023-04-25 | Outpatient (REF) | payer MEDICARE ==
[2023-04-25 09:00] LABS: CALCIUM LEVEL 8.6 MG/DL (8.3-10.6); CREATININE FOR GFR 2.24 MG/DL (0.55-1.30); GLOMERULAR FILTRATION RATE 22.3 (>32)
== END ==
LOC: SKLAB6 07:05
PROVIDERS: ATTEND Internal Medicine
DX: R94.4 Abnormal results of kidney function studies (principal)

== ENCOUNTER → 2023-05-01 | Outpatient (REF) | payer MEDICARE ==
[2023-05-01 06:55] LABS: HEMATOCRIT 32.8 % (36.0-47.0); HEMOGLOBIN 10.4 g/dl (12.0-15.5); MEAN CORPUSCULAR HEMOGLOBIN 32.8 pg (27.0-33.0); MEAN CORPUSCULAR HGB CONC 31.7 g/dl (32.0-36.5); MEAN CORPUSCULAR VOLUME 103.5 fl (80.0-96.0); PLATELET COUNT, AUTOMATED 247 10^3/uL (150-450); RED BLOOD COUNT 3.17 10^6/uL (4.00-5.40); WHITE BLOOD COUNT 5.8 10^3/uL (4.0-10.0)
== END ==
LOC: SKLAB6 07:00
PROVIDERS: ATTEND Internal Medicine
DX: D64.9 Anemia, unspecified (principal)

== ENCOUNTER → 2023-05-08 | Outpatient (CLI) | payer MEDICARE | LOC: M SOG 08:03 | PROVIDERS: ATTEND Physician Assistant | DX: M79.645 Pain in left finger(s) (principal) ==

== ENCOUNTER → 2023-05-19 | Outpatient (REF) | payer MEDICARE ==
[2023-05-19 01:50] LABS: HEMATOCRIT 31.4 % (36.0-47.0); HEMOGLOBIN 10.1 g/dl (12.0-15.5); MEAN CORPUSCULAR HEMOGLOBIN 33.3 pg (27.0-33.0); MEAN CORPUSCULAR HGB CONC 32.2 g/dl (32.0-36.5); MEAN CORPUSCULAR VOLUME 103.6 fl (80.0-96.0); PLATELET COUNT, AUTOMATED 221 10^3/uL (150-450); RED BLOOD COUNT 3.03 10^6/uL (4.00-5.40); WHITE BLOOD COUNT 6.9 10^3/uL (4.0-10.0)
[2023-05-19 02:14] LABS: ALBUMIN 2.9 G/DL (3.2-5.2); BILIRUBIN,TOTAL 0.5 MG/DL (0.3-1.2); CALCIUM LEVEL 8.7 MG/DL (8.3-10.6); CREATININE FOR GFR 1.89 MG/DL (0.55-1.30); GLOMERULAR FILTRATION RATE 27.2 (>32); POTASSIUM SERUM 4.9 MMOL/L (3.5-5.1); TOTAL PROTEIN 6.1 G/DL (5.7-8.2)
== END ==
LOC: SKLAB6 00:44
PROVIDERS: ATTEND Internal Medicine
DX: R11.2 Nausea with vomiting, unspecified (principal); E86.0 Dehydration

== ENCOUNTER → 2023-05-23 | Outpatient (REF) | payer MEDICARE ==
[2023-05-23 20:15] LABS: HEMATOCRIT 35.7 % (36.0-47.0); HEMOGLOBIN 11.3 g/dl (12.0-15.5); MEAN CORPUSCULAR HEMOGLOBIN 33.4 pg (27.0-33.0); MEAN CORPUSCULAR HGB CONC 31.7 g/dl (32.0-36.5); MEAN CORPUSCULAR VOLUME 105.6 fl (80.0-96.0); PLATELET COUNT, AUTOMATED 191 10^3/uL (150-450); RED BLOOD COUNT 3.38 10^6/uL (4.00-5.40); WHITE BLOOD COUNT 7.7 10^3/uL (4.0-10.0)
[2023-05-23 20:34] LABS: CALCIUM LEVEL 8.3 MG/DL (8.3-10.6); CREATININE FOR GFR 2.21 MG/DL (0.55-1.30); GLOMERULAR FILTRATION RATE 22.7 (>32); POTASSIUM SERUM 5.1 MMOL/L (3.5-5.1)
== END ==
LOC: SKLAB6 11:53
PROVIDERS: ATTEND Internal Medicine
DX: R11.2 Nausea with vomiting, unspecified (principal); R19.7 Diarrhea, unspecified; R58 Hemorrhage, not elsewhere classified

== ENCOUNTER → 2023-05-24 | Outpatient (REF) ==
[2023-05-24 14:41] LABS: APPEARANCE, URINE CLOUDY (CLEAR); BACTERIA, URINE AUTO 2+ (NEGATIVE); BILIRUBIN, URINE AUTO NEGATIVE (NEGATIVE); BLOOD, URINE BLOOD 1+ (NEGATIVE); COLOR, URINE YELLOW (YELLOW); GLUCOSE, URINE (UA) AUTO NEGATIVE (NEGATIVE); KETONE, URINE AUTO NEGATIVE (NEGATIVE); LEUKOCYTE ESTERASE, URINE AUTO 2+ (NEGATIVE); MUCUS, URINE SMALL (NEGATIVE); NITRITE, URINE AUTO NEGATIVE (NEGATIVE); PROTEIN, URINE AUTO 2+ mg/dL (NEGATIVE); RBC, URINE AUTO 5 /HPF (0-3); SPECIFIC GRAVITY URINE AUTO 1.015 (1.002-1.035); SQUAMOUS EPITHELIAL CELL UR AU 1 /HPF (0-6); UROBILINOGEN, URINE AUTO 0.2 mg/dL (0.0-2.0); WBC, URINE AUTO 87 /HPF (0-3)
== END ==
LOC: SKLAB6 14:18
PROVIDERS: ATTEND Internal Medicine
DX: R41.0 Disorientation, unspecified (principal)